=== PATIENT | female | born 1945 | race Caucasian/White ===

== ENCOUNTER → 2018-06-19 12:11 | Outpatient (CLI) | payer MEDICARE, OTHER, SELFPAY ==
--- NOTE | 2018-06-19 | DI.MG.S_ITS ---
BILATERAL DIGITAL SCREENING MAMMOGRAM 3D/2D WITH CAD: 06/19/2018 CLINICAL: Routine screening. Comparison is made to exams dated: 07/04/2016 mammogram, 06/23/2015 mammogram, and 06/08/2014 mammogram - [facility]. There are scattered fibroglandular elements in both breasts. Current study was also evaluated with a Computer Aided Detection (CAD) system. There are benign post operative findings in both breasts. No significant masses, calcifications, or other findings are seen in either breast. There has been no significant interval change. IMPRESSION: There is no mammographic evidence of malignancy. A 1 year screening mammogram is recommended. This exam was interpreted at Station ID: [id number]. NOTE: For mammograms, a report in lay terms will be sent to the patient. Approximately 15% of breast malignancies will not be visualized mammographically. In the management of a palpable breast mass, a negative mammogram must not discourage biopsy of a clinically suspicious lesion. Electronically Signed By: Belen zhou/haley:06/19/2018 13:30:15 letter sent: Normal Exam ACR BI-RADS Category 2: Benign Finding(s) 3342F
== END ==
PROVIDERS: Visit Provider Internal Medicine
DX: Z12.31 Encounter for screening mammogram for malignant neoplasm of breast (principal)
CPT/HCPCS: 77063; 77067

== ENCOUNTER → 2018-08-07 16:00 | Outpatient (CLI) | payer MEDICARE, OTHER, SELFPAY ==
[2018-08-07 17:03] LABS: C-Reactive Protein Quant < 0.5 mg/dL (<1.0); Rheumatoid Factor < 8.6 IU/mL (<12.0)
[2018-08-07 17:09] LABS: Erythrocyte Sedimentation Rate 7 MM/HR (0-20)
[2018-08-09 14:46] LABS: HLA B27 NEGATIVE (Negative)
[2018-08-09 19:45] LABS: ANA Screen, IFA Negative (Negative)
== END ==
PROVIDERS: PCP Family Medicine; Visit Provider Orthopaedic Surgery
DX: M79.641 Pain in right hand (principal); M79.642 Pain in left hand
CPT/HCPCS: 36415; 84550; 85651; 86038; 86140; 86430; 86812

== ENCOUNTER 2018-11-22 16:48 | Emergency (ER) | payer MEDICARE, OTHER, SELFPAY ==
[2018-11-22 16:49] VITALS: BP 133/84; PULSE 83; RESP 18; TEMP 37.8; O2SAT 96
--- NOTE | 2018-11-22 18:06 | ED.SKABFB ---
HPI - Skin/Abscess/Foreign Bdy General Chief complaint: Skin/Abscess/Foreign Body Stated complaint: R hand swollen poss insect bite Time Seen by Provider: 11/22/18 17:45 Source: patient Mode of arrival: ambulatory Limitations: no limitations History of Present Illness HPI narrative: Patient is a otherwise healthy 72-year-old female here for evaluation of an infection to her right hand. She states she noticed it yesterday morning. Woke up this morning she thought it was worse. It has improved since this morning because she put ice on it today. She denies any trauma. Denies any other symptoms. She states that earlier in the week she was working in the garden. But does not remember any specific injury. He has never had a abscess that has needed drained in the past. Related Data Previous Rx's Medication Instructions Recorded azithromycin 250 mg tablet See Rx Instructions PO .COMPLEX #6 09/10/18 tab benzonatate 100 mg capsule 100 mg PO BEDTIME #20 cap 09/10/18 ondansetron 4 mg disintegrating 4 mg PO Q6-8H PRN #30 tab 09/10/18 tablet doxycycline hyclate 100 mg PO BID 7 Days #14 tab 11/22/18 Allergies Allergy/AdvReac Type Severity Reaction Status Date / Time hydrocodone [HYDROCODONE] AdvReac Mild SEVERE Verified 09/10/18 08:34 VOMITING Review of Systems Constitutional Denies fatigue and Denies fever(s) Respiratory Denies cough Musculoskeletal Reports arthralgias (Right wrist), Reports joint swelling (Right wrist), Reports limited range of motion (Right wrist) and Denies tingling Integumentary/Breasts Comments: Redness on the back of the right wrist Neurologic Denies tingling Endocrine Denies fatigue Hematologic/Lymphatic Denies easy bleeding and Denies easy bruising FOR[facility]LY [facility], [facility]–1983 Medical History Healthy adult (Acute) Social History Smoking Status: Never smoker Social History Smoking Status: Never smoker Exam Initial Vital Signs Initial Vital Signs: Vital Signs Temperature 100.1 F H 11/22/18 16:49 Pulse Rate 83 11/22/18 16:49 Respiratory Rate 18 11/22/18 16:49 Blood Pressure 133/84 11/22/18 16:49 Pulse Oximetry 96 11/22/18 16:49 Const General: cooperative, comfortable, well developed, well groomed and No acute distress Orientation: alert, awake and oriented x3 HENMT Head: normal to inspection and normocephalic Resp Effort & Inspection: normal respiratory effort Auscultation: clear to auscultation bilaterally Cardio Rate: regular rate Rhythm: regular rhythm Pulses: radial pulses present on the right Skin Other: Patient with redness on the dorsum of the right hand that extends a very short distance proximal to the wrist joint. No redness on the palm of the hand. Redness does not extend distal to the MCP joints. Neuro Sensory Exam: no sensory deficits noted Extrem General: normal to inspection and capillary refill normal Course Orders Ordered: ED Orders 11/22/18 18:00 Complete Blood Count AUTO DIFF Stat Comprehensive Metabolic Panel Stat Lactate (Lactic Acid) Stat Procalcitonin Stat 11/22/18 18:25 Blood Culture Stat Discontinued Medications Acetaminophen (Tylenol) 650 mg PO NOW ONE Stop: 11/22/18 17:46 Last Admin: 11/22/18 18:31 Dose: 650 mg Clindamycin Phosphate (Cleocin) 900 mg in 50 mls @ 50 mls/hr IV NOW ONE Stop: 11/22/18 19:29 Last Infusion: 11/22/18 20:04 Dose: 0 mls/hr Admin: 11/22/18 18:34 Dose: 50 mls/hr Vital Signs - 8 hr 11/22/18 16:49 11/22/18 19:49 Temperature 100.1 F H Pulse Rate 83 85 Respiratory Rate 18 15 Blood Pressure 133/84 Blood Pressure [Right Arm] 128/63 Pulse Oximetry 96 95 MDM - Skin/Abscess/Foreign Bdy Lab Data Attestation: I reviewed the patient's lab results. Result diagrams: 11/22/18 18:00 11/22/18 18:00 Lab Results 11/22/18 11/22/18 11/22/18 Range/Units 18:00 18:00 18:00 WBC 10.7 (4.5-11.0) X10^3/uL RBC 4.69 (4.0-5.2) X10^6/uL Hgb 14.5 (12.0-16.0) g/dL Hct 42.6 (36-46) % MCV 90.8 (80-100) fL MCH 31.0 (26-34) PG MCHC 34.1 (30-36) % RDW 14.0 (11.6-14.8) % Plt Count 396 (150-400) X10^3/uL Neut % (Auto) 57.7 (50-75) % Lymph % (Auto) 27.3 (25-40) % Bowie % (Auto) 13.3 (3-14) % Eos % (Auto) 0.8 L (2-4) % Baso % (Auto) 0.9 (0-2) % Neut # (Auto) 6200 (1330-6594) /uL Lymph # (Auto) 2900 (6147-1879) /uL Bowie # (Auto) 1400 H (0-900) /uL Eos # (Auto) 100 (0-450) /uL Baso # (Auto) 100 (0-100) /uL Sodium 139 (137-145) mmol/L Potassium 3.8 (3.4-5.1) mmol/L Chloride 101 (98-107) mmol/L Carbon Dioxide 28 (22-32) mmol/L BUN 11 (7-17) mg/dL Creatinine 0.80 (0.52-1.04) mg/dL Estimated GFR > 60.0 (>60) mL/min BUN/Creatinine Ratio 13.8 (6-22) Glucose 109 (80-110) mg/dL Lactate (0.7-2.1) mmol/L Calcium 9.4 (8.4-10.2) mg/dL Total Bilirubin 0.7 (0.2-1.3) mg/dL AST 20 (14-36) IU/L ALT 30 (9-52) IU/L Alkaline Phosphatase 82 (38-126) U/L Total Protein 7.9 (6.3-8.2) g/dL Albumin 4.4 (3.5-5.0) g/dL Globulin 3.5 (1.7-4.1) g/dL Albumin/Globulin Ratio 1.3 (1.0-2.8) Procalcitonin < 0.05 (<0.5) ng/mL 11/22/18 Range/Units 18:00 WBC (4.5-11.0) X10^3/uL RBC (4.0-5.2) X10^6/uL Hgb (12.0-16.0) g/dL Hct (36-46) % MCV (80-100) fL MCH (26-34) PG MCHC (30-36) % RDW (11.6-14.8) % Plt Count (150-400) X10^3/uL Neut % (Auto) (50-75) % Lymph % (Auto) (25-40) % Bowie % (Auto) (3-14) % Eos % (Auto) (2-4) % Baso % (Auto) (0-2) % Neut # (Auto) (5552-2104) /uL Lymph # (Auto) (7458-4989) /uL Bowie # (Auto) (0-900) /uL Eos # (Auto) (0-450) /uL Baso # (Auto) (0-100) /uL Sodium (137-145) mmol/L Potassium (3.4-5.1) mmol/L Chloride (98-107) mmol/L Carbon Dioxide (22-32) mmol/L BUN (7-17) mg/dL Creatinine (0.52-1.04) mg/dL Estimated GFR (>60) mL/min BUN/Creatinine Ratio (6-22) Glucose (80-110) mg/dL Lactate 1.4 (0.7-2.1) mmol/L Calcium (8.4-10.2) mg/dL Total Bilirubin (0.2-1.3) mg/dL AST (14-36) IU/L ALT (9-52) IU/L Alkaline Phosphatase (38-126) U/L Total Protein (6.3-8.2) g/dL Albumin (3.5-5.0) g/dL Globulin (1.7-4.1) g/dL Albumin/Globulin Ratio (1.0-2.8) Procalcitonin (<0.5) ng/mL MDM Narrative Medical decision making narrative: Patient is nontoxic appearing. Redness is located to the dorsum of the right hand. She has a picture of it from earlier today and it does appear to be better than what it was earlier today. No abscess seen on exam. She has a small area on the dorsum of the hand where it looks like there was a potential break in the skin. Unsure if this was from when she was working in the garden earlier this week. She was working with [employer] however does not remember getting stuck with anything. Considered infection such as Sporotrichosis however I feel given the look of the infection today that treating with a course of doxycycline as a cellulitis is warranted. She was given IV antibiotics here in the ER. She was instructed to contact her primary doctor for follow-up. Was given a prescription for doxycycline. She was given return precautions. She expressed understanding and agreement with plan. Discharge Plan Departure Patient Disposition: Home Clinical Impression: Cellulitis Qualifiers: Site of cellulitis: extremity Site of cellulitis of extremity: upper extremity Laterality: right Qualified Code(s): L03.113 - Cellulitis of right upper limb Discharge Date/Time: 11/22/18 20:10 Interventions: ED Discharge Assessment Last Done: 11/22/18 20:10 Instructions: DI for Cellulitis -- Adult Activity Restrictions/Additional Instructions: Take the antibiotics as directed. Contact the [facility] to establish care with your new provider. You can contact them at [phone]. Return to the emergency department for any new or worsening symptoms Prescriptions: New doxycycline hyclate 100 mg tablet 100 mg PO BID 7 Days Qty: 14 RF: 0 No Action azithromycin 250 mg tablet See Rx Instructions PO .COMPLEX Qty: 6 RF: 0 ondansetron 4 mg tablet,disintegrating 4 mg PO Q6-8H PRN (Reason: nausea and vomiting) Qty: 30 RF: 0 benzonatate 100 mg capsule 100 mg PO BEDTIME Qty: 20 RF: 0 Referrals: Toan Hernandez MD [Primary Care Provider] -
[2018-11-22 18:12] LABS: Add Manual Diff / Slide Review NO; Basophils Absolute Auto 100 /uL (0-100); Basophils Percent Auto 0.9 % (0-2); Eosinophils Absolute Auto 100 /uL (0-450); Eosinophils Percent Auto 0.8 % (2-4); Hematocrit 42.6 % (36-46); Hemoglobin 14.5 g/dL (12.0-16.0); Lymphocytes Absolute Auto 2900 /uL (1100-4500); Lymphocytes Percent Auto 27.3 % (25-40); Mean Corpuscular HGB Conc 34.1 % (30-36); Mean Corpuscular Volume 90.8 fL (80-100); Monocytes Absolute Auto 1400 /uL (0-900); Monocytes Percent Auto 13.3 % (3-14); Neutrophils Absolute Auto 6200 /uL (1500-7000); Neutrophils Percent Auto 57.7 % (50-75); Platelet Count 396 X10^3/uL (150-400); Red Blood Cell Count 4.69 X10^6/uL (4.0-5.2); White Blood Cell Count 10.7 X10^3/uL (4.5-11.0)
[2018-11-22 18:23] LABS: Lactate (Lactic Acid) 1.4 mmol/L (0.7-2.1)
[2018-11-22 18:24] LABS: Alanine Aminotransferase 30 IU/L (9-52); Albumin 4.4 g/dL (3.5-5.0); Albumin Globulin Ratio 1.3 (1.0-2.8); Alkaline Phosphatase 82 U/L (38-126); Aspartate Aminotransferase 20 IU/L (14-36); BUN Creatinine Ratio 13.8 (6-22); Bilirubin Total 0.7 mg/dL (0.2-1.3); Blood Urea Nitrogen 11 mg/dL (7-17); Calcium 9.4 mg/dL (8.4-10.2); Carbon Dioxide 28 mmol/L (22-32); Chloride 101 mmol/L (98-107); Estimated Glomerular Filt Rate > 60.0 mL/min (>60); Globulin 3.5 g/dL (1.7-4.1); Glucose 109 mg/dL (80-110); HEMOLYSIS < 15 (0-50); Potassium 3.8 mmol/L (3.4-5.1); Sodium 139 mmol/L (137-145); Total Protein 7.9 g/dL (6.3-8.2)
[2018-11-22] MEDS: ACETAMINOPHEN 325 MG TABLET 650 MG PO (18:31)
[2018-11-22] MEDS: CLINDAMYCIN 900 MG/50 ML PIGGYBACK 50 MG IV (18:34)
[2018-11-22 18:45] LABS: Procalcitonin < 0.05 ng/mL (<0.5)
[2018-11-22 19:49] VITALS: BP 128/63; PULSE 85; RESP 15; O2SAT 95
== END 2018-11-22 20:10 | disposition home or self-care (01) ==
PROVIDERS: Emergency Medicine; Emergency Provider Emergency Medicine; PCP Student in an Organized Health Care Education/Training Program
DX: L03.113 Cellulitis of right upper limb (principal)
CPT/HCPCS: 36415; 36591; 80053; 83605; 84145; 85025; 87040; 96365; 96366; 99283; 99284

== ENCOUNTER → 2019-09-06 11:49 | Outpatient (CLI) | payer MEDICARE, OTHER, SELFPAY ==
[2019-09-08 14:17] LABS: Immunoglobulin A 513 mg/dL (70-320)
== END ==
PROVIDERS: Family Provider Internal Medicine; PCP Internal Medicine; Visit Provider Internal Medicine
DX: R19.7 Diarrhea, unspecified (principal)
CPT/HCPCS: 36415; 82784; 83516

== ENCOUNTER → 2020-03-24 11:00 | Outpatient (CLI) | payer MEDICARE, OTHER, SELFPAY ==
--- NOTE | 2020-03-24 | DI.MG.S_ITS ---
BILATERAL DIGITAL SCREENING MAMMOGRAM 3D/2D WITH CAD: 03/24/2020 CLINICAL: Routine screening. Comparison is made to exams dated: 06/19/2018 mammogram, 07/04/2016 mammogram, and 06/23/2015 mammogram - [facility]. There are scattered fibroglandular elements in both breasts. Current study was also evaluated with a Computer Aided Detection (CAD) system. There are benign post operative findings in both breasts. No significant masses, calcifications, or other findings are seen in either breast. There has been no significant interval change. IMPRESSION: There is no mammographic evidence of malignancy. A 1 year screening mammogram is recommended. This exam was interpreted at Station ID: [id number]. NOTE: For mammograms, a report in lay terms will be sent to the patient. Approximately 15% of breast malignancies will not be visualized mammographically. In the management of a palpable breast mass, a negative mammogram must not discourage biopsy of a clinically suspicious lesion. Electronically Signed By: Belen zhou/haley:03/24/2020 11:24:31 letter sent: Normal Exam ACR BI-RADS Category 2: Benign Finding(s) 3342F
== END ==
PROVIDERS: Family Provider Internal Medicine; PCP Internal Medicine; Referring Provider Internal Medicine; Visit Provider Internal Medicine
DX: Z12.31 Encounter for screening mammogram for malignant neoplasm of breast (principal)
CPT/HCPCS: 77063; 77067

== ENCOUNTER → 2020-09-22 09:21 | Outpatient (CLI) | payer MEDICARE, OTHER, SELFPAY ==
[2020-09-22 10:49] LABS: Alanine Aminotransferase 19 IU/L (<35); Albumin 4.2 g/dL (3.5-5.0); Albumin Globulin Ratio 1.3 (1.0-2.8); Alkaline Phosphatase 73 U/L (38-126); Aspartate Aminotransferase 25 IU/L (14-36); Bilirubin Total 0.6 mg/dL (0.2-1.3); Blood Urea Nitrogen 13 mg/dL (7-17); Carbon Dioxide 30 mmol/L (22-32); Chloride 104 mmol/L (98-107); Cholesterol 255 mg/dL (140-199); Estimated Glomerular Filt Rate > 60.0 mL/min (>60); Globulin 3.3 g/dL (1.7-4.1); Glucose 91 mg/dL (80-110); HDL Cholesterol 65 mg/dL (40-60); HEMOLYSIS < 15 (0-50); LDL Cholesterol Calculated 160 mg/dL (<100); Potassium 3.8 mmol/L (3.4-5.1); Sodium 139 mmol/L (137-145); Total Protein 7.5 g/dL (6.3-8.2); Triglycerides 148 mg/dL (35-150)
[2020-09-22 11:34] LABS: TSH w/ Reflex to FT4 1.58 uIU/mL (0.47-4.68)
== END ==
PROVIDERS: Family Provider Internal Medicine; PCP Family Medicine; Referring Provider Family Medicine; Visit Provider Family Medicine
DX: E78.2 Mixed hyperlipidemia (principal); I49.3 Ventricular premature depolarization; J45.30 Mild persistent asthma, uncomplicated; M19.042 Primary osteoarthritis, left hand
CPT/HCPCS: 36415; 80053; 80061; 84443

== ENCOUNTER → 2020-09-29 11:18 | Outpatient (CLI) | payer MEDICARE, SELFPAY ==
[2020-09-29 13:03] LABS: Add Manual Diff / Slide Review NO; Basophils Absolute Auto 100 /uL (0-100); Eosinophils Absolute Auto 100 /uL (0-450); Eosinophils Percent Auto 1.7 % (2-4); Hematocrit 46.7 % (36-46); Hemoglobin 15.3 g/dL (12.0-16.0); Lymphocytes Absolute Auto 1800 /uL (1100-4500); Lymphocytes Percent Auto 30.6 % (25-40); Mean Corpuscular HGB Conc 32.8 % (30-36); Mean Corpuscular Hemoglobin 30.1 PG (26-34); Monocytes Absolute Auto 600 /uL (0-900); Monocytes Percent Auto 10.4 % (3-14); Neutrophils Absolute Auto 3400 /uL (1500-7000); Neutrophils Percent Auto 56.3 % (50-75); Platelet Count 378 X10^3/uL (150-400); Red Blood Cell Count 5.07 X10^6/uL (4.0-5.2); Red Cell Distribution Width 14.2 % (11.6-14.8)
[2020-09-29 13:30] LABS: High Sensitivity CRP - Cardiac 2.8 mg/L (1.0-3.0)
== END ==
PROVIDERS: Family Provider Internal Medicine; PCP Family Medicine; Referring Provider Family Medicine; Visit Provider Family Medicine
DX: D68.52 Prothrombin gene mutation (principal); E78.2 Mixed hyperlipidemia; I49.3 Ventricular premature depolarization
CPT/HCPCS: 36415; 85025; 86140

== ENCOUNTER → 2020-11-10 13:30 | Outpatient (CLI) | payer MEDICARE, OTHER, SELFPAY ==
--- NOTE | 2020-11-10 13:32 | DI.MRI.S_ITS ---
PROCEDURE: MRFOOT LT WO CON INDICATIONS: Metatarsalgia, left foot TECHNIQUE: Noncontrast sagittal T1 spin echo and T2 fast spin echo with fat saturation, long-axis T1 spin echo and T2 fast spin echo with fat saturation, short-axis T1 spin echo and T2 fast spin echo with fat saturation through the forefoot. COMPARISON: [facility], CR, XR FOOT 3 VIEWS WEIGHT BEARING LEFT, 08/01/2020, 13:14. FINDINGS: Image quality: Suboptimal secondary to failure of fat suppression in the region of the distal forefoot. Bones and joints: No bone marrow contusions or metatarsal stress fractures. The sesamoid bones appear in expected positions, without internal edema. There is diffuse lesser MTP joint degeneration, although not well evaluated due to failure of fat suppression artifact. Moderate 1st MTP joint degeneration. Soft tissues: The visualized plantar foot muscles demonstrate normal signal and bulk. Visualized flexor and extensor tendons appear intact, without tenosynovitis. The distal insertions of the peroneus brevis and longus tendons appear intact. The principal Lisfranc ligament appears intact. No soft tissue ganglion cysts or bursal fluid collections. Sagittal images demonstrate no evidence for plantar plate tears. IMPRESSION: Diffuse MTP joint degeneration Dictated by: Dagoberto Moreno M.D. on 11/10/2020 at 14:59 Approved by: Dagoberto Moreno M.D. on 11/10/2020 at 15:17
== END ==
PROVIDERS: Family Provider Internal Medicine; PCP Family Medicine; Referring Provider Orthopaedic Surgery Foot and Ankle Surgery; Visit Provider Orthopaedic Surgery Foot and Ankle Surgery
DX: M77.42 Metatarsalgia, left foot (principal); M19.072 Primary osteoarthritis, left ankle and foot
CPT/HCPCS: 73718

== ENCOUNTER → 2021-05-04 17:57 | Outpatient (CLI) | payer MEDICARE, OTHER, SELFPAY ==
--- NOTE | 2021-05-04 | DI.MG.S_ITS ---
BILATERAL DIGITAL SCREENING MAMMOGRAM 3D/2D WITH CAD: 05/04/2021 CLINICAL: Routine screening. Comparison is made to exams dated: 03/24/2020 mammogram, 06/19/2018 mammogram, and 07/04/2016 mammogram - [facility]. There are scattered fibroglandular elements in both breasts. Current study was also evaluated with a Computer Aided Detection (CAD) system. There are benign post operative findings in both breasts. No significant masses, calcifications, or other findings are seen in either breast. There has been no significant interval change. IMPRESSION: BENIGN There is no mammographic evidence of malignancy. A 1 year screening mammogram is recommended. This exam was interpreted at Station ID: [id number]. NOTE: For mammograms, a report in lay terms will be sent to the patient. Approximately 15% of breast malignancies will not be visualized mammographically. In the management of a palpable breast mass, a negative mammogram must not discourage biopsy of a clinically suspicious lesion. Electronically Signed By: Ga lomeli/haley:05/08/2021 08:04:33 letter sent: Normal Exam ACR BI-RADS Category 2: Benign Finding(s) [id number]
== END ==
PROVIDERS: PCP Family Medicine; Referring Provider Family Medicine; Visit Provider Family Medicine
DX: Z12.31 Encounter for screening mammogram for malignant neoplasm of breast (principal)
CPT/HCPCS: 77063; 77067

== ENCOUNTER → 2021-07-05 12:09 | Outpatient (CLI) | payer MEDICARE, OTHER, SELFPAY ==
[2021-07-05 13:40] LABS: Cholesterol 131 mg/dL (140-199); HDL Cholesterol 52 mg/dL (40-60); LDL Cholesterol Calculated 65 mg/dL (<100); Triglycerides 72 mg/dL (35-150)
== END ==
PROVIDERS: PCP Family Medicine; Referring Provider Family Medicine; Visit Provider Family Medicine
DX: E78.2 Mixed hyperlipidemia (principal)
CPT/HCPCS: 36415; 80061

== ENCOUNTER → 2021-09-18 15:26 | Outpatient (CLI) | payer MEDICARE, OTHER, SELFPAY ==
[2021-09-18 16:00] LABS: COVID19 -Nasal RAPID Negative (Negative)
== END ==
PROVIDERS: PCP Family Medicine; Referring Provider Family Medicine Sleep Medicine; Visit Provider Family Medicine Sleep Medicine
DX: Z20.822 Contact with and (suspected) exposure to COVID-19 (principal)
CPT/HCPCS: 87635; C9803

== ENCOUNTER → 2021-09-19 08:44 | Outpatient (CLI) | payer MEDICARE, OTHER, SELFPAY ==
--- NOTE | 2021-09-20 14:35 | P.PCN_ITS ---
Cardiac Stress Test Report Referral & Results Date Patient Seen: 09/20/21 Requesting provider: Juan J Cortez Indication: Shortness of breath Rest ECG: Unremarkable with occasional simple unifocal PVCs Procedure Note: Today following both written and verbal informed consent the patient was exercised according to a standard Frederic protocol patient went for a total of 7 minutes 3 seconds achieving a maximum heart rate of 164 maximum systolic blood pressure of 168. This is approximately 10.1 METS. Exercise was terminated at this point because of targets were met. Patient was also given Cardiolite through a previously started Hep-Lock IV by the diagnostic imaging staff approximately 1 minute prior to the cessation of exercise. There are no ST-T segment changes. Patient with somewhat tachycardic response to exercise but normal blood pressure response Function aerobic impairment rates-25% on the active scale and patient certainly could have continued longer on the treadmill of his halted early by myself because targets were clearly met and her EMELIA was far better than normal She did have occasional PVCs including ventricular couplets that were mono morphic in character. She had rare PACs. Oxygen saturation was normal throughout Impression: No evidence of ischemia. Ventricular dysrhythmia as above. Excellent exercise capacity Please see perfusion imaging report as well Please note: Actual ECG tracings can be found in the PACS system.
--- NOTE | 2021-09-20 20:09 | DI.NM.S_ITS ---
DATE OF SERVICE: 09/19/2021 PROCEDURE: Exercise perfusion study. INDICATION: Exertional shortness of breath, hyperlipidemia, PVCs. RADIOPHARMACEUTICAL: 25.6 millicurie technetium-99m Myoview was injected at stress and 24.6 millicurie technetium-99m my Myoview was injected at rest. CARDIAC STRESS: The patient walked on treadmill for 7 minutes and achieved 112 percent target heart rate with maximum heart rate 164 beats per minute. During first stage, heart rate was 133, suggestive of enhanced chronotropic response. Baseline blood pressure 122/70. Peak blood pressure 160/68 mmHg. The patient has baseline PVCs. During stress, there were no convincing ischemic changes. However, had frequent PVCs and occasional ventricular couplets without any ventricular tachycardia. Some PACs were seen, as well. No significant symptoms were mentioned. The patient achieved 10.1 METs of workload and EMELIA -25 percent. RAW DATA: There is increased subdiaphragmatic activity, as well as hot spot near the apex. GATED STUDY: Resting LV ejection fraction 69 percent and stress LV ejection fraction is 79 percent without any obvious wall motion abnormalities. Resting end-diastolic volume 72 mL. TID ratio 0.86, which is within normal limits. Lung/heart ratio 0.52, which is abnormal, suggestive of elevated left ventricular filling pressure. MYOCARDIAL PERFUSION SCAN: Stress supine, resting supine and stress prone images were compared to each other. Stress supine and resting supine images revealed small size, mildly decreased perfusion of apex, which got completely resolved during stress prone images, suggestive of tissue attenuation artifact. The stress prone images revealed normal myocardial perfusion. CONCLUSION: This is a normal myocardial perfusion study with evidence of tissue attenuation artifact, which got resolved during stress prone images. Good exercise tolerance. EMELIA -25 percent. Enhanced chronotropic response. Normal blood pressure response. Baseline, some premature ventricular contractions, which got worse during exercise with intermittent ventricular couplets without an any ventricular tachycardia. There is abnormal lung/heart ratio, suggestive of elevated left ventricular filling pressure. Consider 2D echo to rule out diastolic dysfunction or valvular pathology. Alison Majano - CRISTHIAN/michael/carmen doc#: [id number]/job#: [id number] dd: 09/20/2021 17:48:00 dt: 09/20/2021 19:44:00 DICTATING MD/COPIES TO: Dianna Block MD COPIES MNE: DOUGLAS;
== END ==
PROVIDERS: PCP Family Medicine; Referring Provider Family Medicine; Visit Provider Family Medicine
DX: J45.30 Mild persistent asthma, uncomplicated (principal); E78.2 Mixed hyperlipidemia; R06.02 Shortness of breath; I49.3 Ventricular premature depolarization; I47.0 Re-entry ventricular arrhythmia
CPT/HCPCS: 78452; 93016; 93017; 93018; A9502

== ENCOUNTER → 2021-10-18 10:16 | Outpatient (CLI) | payer MEDICARE, OTHER, SELFPAY ==
--- NOTE | 2021-10-18 10:17 | DI.ECHO.S_ITS ---
[place]---------+ [facility] +---------+ : : [address] [address] : : : : [id number] : : : : Phone: [phone]---------+ Echocardiogram Report + + :Name: RIA NOLASCO Study Date: 10/18/2021 Height: 60.5 in: :[facility] ReadingLocation: Weight: 144 lb : : Gender: Female BSA: 1.6 m2 : :: 1945 Age: 75 yrs BP: 130/80 mmHg: :Reason For Study: Hyperlipidemia, SOB, Family hx of CAD : :Ordering Physician: : :MARIMAR Performed By: Antonio Jackson : :Referring: CADEN DESAI : + + Interpretation Summary The ejection fraction is estimated to be 60-65%. Diastolic function could not be accurately assessed due to contradictory data. The right ventricle is normal in size and function. No significant valvular abnormalities. Pulmonary artery pressures cannot be estimated because of the lack of a measurable TR jet velocity. Procedure: A two-dimensional transthoracic echocardiogram with color flow and Doppler was performed. The study quality was technically adequate. The subcostal views were difficult to obtain and are suboptimal in quality. Aquisition on apical window technically difficult. Comparison is made with the echocardiogram of 11/08/2016. A contrast injection of Definity was performed to improve assessment of LV function. The patient was in normal sinus rhythm during the exam. Left Ventricle: The left ventricle is normal in size and wall thickness. The ejection fraction is estimated to be 60-65%. Diastolic function could not be accurately assessed due to contradictory data. Right Ventricle: The right ventricle is normal in size and function. Atria: Both atria are normal in size. Mitral Valve: The mitral valve leaflets appear mildly thickened, but open well. There is mild mitral annular calcification. There is trace mitral regurgitation. Aortic Valve: The aortic valve is trileaflet. The aortic valve opens well. There is no aortic valve stenosis. There is trace aortic regurgitation. Tricuspid Valve: The tricuspid valve is normal. There is a trace or physiologic amount of tricuspid regurgitation. Pulmonary artery pressures cannot be estimated because of the lack of a measurable TR jet velocity. Pulmonic Valve: The pulmonic valve leaflets are thin and pliable; valve motion is normal. There is a trace or physiologic amount of pulmonic regurgitation. Great Vessels: The aortic root is normal size. The ascending aorta is normal in size. The aortic arch is normal in size. The IVC is of normal diameter and collapses greater than 50% with a sniff. This suggests a low right atrial pressure of 3 mm Hg. Pericardium/ Pleura There is no pericardial effusion. There is an anterior echo-free space consistent with a fat pad. There is no pleural effusion. MMode/2D Measurements & Calculations LVIDd: 4.7 cm LVOT diam: 2.0 cm LVIDs: 3.4 cm Ao root diam: 2.8 cm FS: 27.7 % asc Aorta Diam: 2.9 cm IVSd: 0.90 cm Ao Arch Diam (Prox Trans): 2.7 cm LVPWd: 0.80 cm LV levin. diameter/BSA (cm/m^2): 2.9 LV sys. diameter/BSA (cm/m^2): 2.1 LA A2 area: 15.6 cm2 RA long axis: 4.5 cm LA A4 area: 15.3 cm2 LA length (vol): 4.4 cm LA vol: 46.0 ml LA vol index: 28.1 ml/m2 LVLs ap4: 5.4 cm LVLd ap2: 6.5 cm LVLs ap2: 5.3 cm TAPSE_phl: 1.9 cm Doppler Measurements & Calculations Ao V2 max: 146.0 cm/sec LVOT Max Ez: 81.6 cm/sec Ao V2 mean: 99.1 cm/sec LV V1 max P.7 mmHg Ao max P.0 mmHg LV V1 VTI: 15.8 cm Ao mean P.0 mmHg REGINALDO(I,D): 1.8 cm2 Ao V2 VTI: 27.4 cm REGINALDO(V,D): 1.8 cm2 sev ratio: 0.58 REGINALDO indexed to BSA (cm^2/m^2): 1.1 MV E max ez: 82.3 cm/sec TR max ez: 158.8 cm/sec MV A max ez: 116.0 cm/sec TR max P.1 mmHg MV E/A: 0.71 Med Peak E' Ez: 5.3 cm/sec E/E' med: 15.5 Lat Peak E' Ez: 4.2 cm/sec E/E' lat: 19.8 E/e' average: 17.6 MV dec time: 0.21 sec SV(LVOT): 49.6 ml AV VR_phl: 0.56 REGINALDO(VTI)/BSA_phl: 1.1 MV P1/2t-pr_phl: 61.0 msec Reading Physician:12:31 PM
== END ==
PROVIDERS: PCP Family Medicine; Referring Provider Family Medicine; Visit Provider Family Medicine
DX: R06.02 Shortness of breath (principal); E78.2 Mixed hyperlipidemia; Z82.49 Family history of ischemic heart disease and other diseases of the circulatory system
CPT/HCPCS: 93306; Q9957

== ENCOUNTER → 2021-10-23 08:38 | Outpatient (CLI) | payer MEDICARE, OTHER, SELFPAY ==
[2021-10-23 09:35] LABS: Cholesterol 174 mg/dL (140-199); HDL Cholesterol 67 mg/dL (40-60); LDL Cholesterol Calculated 85 mg/dL (<100); Triglycerides 111 mg/dL (35-150)
[2021-10-26 10:14] LABS: Estrogen 149 pg/mL (.)
[2021-11-02 14:58] LABS: % Free Progesterone 2.3 % (.); Progesterone, Serum 44 ng/dL (.)
== END ==
PROVIDERS: PCP Family Medicine; Referring Provider Family Medicine; Visit Provider Family Medicine
DX: E78.2 Mixed hyperlipidemia (principal); N95.9 Unspecified menopausal and perimenopausal disorder; J45.30 Mild persistent asthma, uncomplicated
CPT/HCPCS: 36415; 80061; 82672; 83498; 84144; 84999

== ENCOUNTER → 2022-01-21 14:51 | Outpatient (CLI) | payer MEDICARE, OTHER, SELFPAY ==
--- NOTE | 2022-01-21 14:53 | DI.RAD.S_ITS ---
PROCEDURE: XR HIP W PEL IF DONE [place] MIN 4V INDICATIONS: Hip pain TECHNIQUE: AP pelvis with lateral view(s) of the bilateral hip(s). COMPARISON: None. FINDINGS: Bones: No fractures or dislocations. Pelvic ring appears intact. No suspicious bony lesions. Joint space narrowing and periarticular osteophyte formation at the bilateral hip joints. Soft tissues: The visualized bowel gas pattern is normal. No suspicious soft tissue calcifications. IMPRESSION: Bilateral hip osteoarthritis. No acute fracture. No osseous lesion. If symptoms and/or clinical suspicion for pathology persist, further assessment with repeat, or advanced imaging (e.g., CT, MRI, or bone scan) may be helpful for further assessment. Dictated by: Jermain Collazo M.D. on 01/21/2022 at 16:31 Approved by: Jermain Collazo M.D. on 01/21/2022 at 16:55
== END ==
PROVIDERS: PCP Family Medicine; Referring Provider Family Medicine; Visit Provider Internal Medicine
DX: M51.36 Other intervertebral disc degeneration, lumbar region (principal); M16.0 Bilateral primary osteoarthritis of hip
CPT/HCPCS: 73522

== ENCOUNTER → 2022-02-20 17:03 | Outpatient (CLI) | payer MEDICARE, OTHER, SELFPAY ==
[2022-02-20 18:56] LABS: Vitamin D 25 Hydroxy (D3) 50.6 ng/mL (30.0-100.0)
== END ==
PROVIDERS: PCP Family Medicine; Referring Provider Family Medicine; Visit Provider Family Medicine
DX: M16.10 Unilateral primary osteoarthritis, unspecified hip (principal); N95.9 Unspecified menopausal and perimenopausal disorder
CPT/HCPCS: 36415; 82306

== ENCOUNTER → 2022-02-25 13:45 | Outpatient (CLI) | payer MEDICARE, OTHER, SELFPAY ==
[2022-02-25 15:30] LABS: Alanine Aminotransferase 19 IU/L (<35); Albumin 4.3 g/dL (3.5-5.0); Albumin Globulin Ratio 1.4 (1.0-2.8); Alkaline Phosphatase 70 U/L (38-126); Aspartate Aminotransferase 26 IU/L (14-36); BUN Creatinine Ratio 15.7 (6-22); Bilirubin Total 0.9 mg/dL (0.2-1.3); Blood Urea Nitrogen 13 mg/dL (7-17); Calcium 9.1 mg/dL (8.4-10.2); Carbon Dioxide 31 mmol/L (22-32); Chloride 104 mmol/L (98-107); Estimated Glomerular Filt Rate > 60 mL/min (>60); Globulin 3.1 g/dL (1.7-4.1); Glucose 88 mg/dL (80-110); HEMOLYSIS < 15 (0-50); Potassium 3.7 mmol/L (3.4-5.1); Sodium 141 mmol/L (137-145); Total Protein 7.4 g/dL (6.3-8.2)
== END ==
PROVIDERS: PCP Family Medicine; Referring Provider Family Medicine; Visit Provider Family Medicine
DX: E78.2 Mixed hyperlipidemia (principal); M16.10 Unilateral primary osteoarthritis, unspecified hip; M51.36 Other intervertebral disc degeneration, lumbar region
CPT/HCPCS: 36415; 80053

== ENCOUNTER → 2022-05-24 12:01 | Outpatient (CLI) | payer MEDICARE, OTHER, SELFPAY ==
[2022-05-24 13:59] LABS: Cholesterol 286 mg/dL (140-199); HDL Cholesterol 71 mg/dL (40-60); LDL Cholesterol Calculated 193 mg/dL (<100); Triglycerides 108 mg/dL (35-150)
== END ==
PROVIDERS: PCP Family Medicine; Referring Provider Family Medicine; Visit Provider Family Medicine
DX: E78.2 Mixed hyperlipidemia (principal)
CPT/HCPCS: 36415; 80061

== ENCOUNTER → 2022-05-29 09:30 | Outpatient (CLI) | payer MEDICARE, OTHER, SELFPAY ==
--- NOTE | 2022-05-29 | DI.MG.S_ITS ---
BILATERAL DIGITAL SCREENING MAMMOGRAM 3D/2D WITH CAD: 05/29/2022 CLINICAL: Routine screening. Comparison is made to exams dated: 05/04/2021 mammogram, 03/24/2020 mammogram, 06/19/2018 mammogram, 07/04/2016 mammogram, and 06/23/2015 mammogram - [facility]. There are scattered areas of fibroglandular density in both breasts (category b / 25%-50% glandular tissue). Current study was also evaluated with a Computer Aided Detection (CAD) system. There are benign post operative findings in both breasts. No significant masses, calcifications, or other findings are seen in either breast. There has been no significant interval change. IMPRESSION: BENIGN There is no mammographic evidence of malignancy. A 1 year screening mammogram is recommended. Based on the Tyrer Cuzick model (a risk assessment model) the patient's lifetime risk is 2.7% and her 10 year risk is 2.7%. According to the ACR, ACS, and NCCN guidelines, an annual breast MRI exam along with mammogram is recommended if the patient's lifetime risk is 20% or greater. This exam was interpreted at Station ID: [id number]. NOTE: For mammograms, a report in lay terms will be sent to the patient. Approximately 15% of breast malignancies will not be visualized mammographically. In the management of a palpable breast mass, a negative mammogram must not discourage biopsy of a clinically suspicious lesion. Electronically Signed By: Eren armas/haley:05/29/2022 15:16:57 letter sent: Normal Exam ACR BI-RADS Category 2: Benign Finding(s) 3342F
== END ==
PROVIDERS: PCP Family Medicine; Referring Provider Family Medicine; Visit Provider Family Medicine
DX: Z12.31 Encounter for screening mammogram for malignant neoplasm of breast; M85.852 Other specified disorders of bone density and structure, left thigh; Z78.0 Asymptomatic menopausal state; M85.851 Other specified disorders of bone density and structure, right thigh; Z13.820 Encounter for screening for osteoporosis; M16.10 Unilateral primary osteoarthritis, unspecified hip; M51.36 Other intervertebral disc degeneration, lumbar region; Z90.710 Acquired absence of both cervix and uterus; Z79.890 Hormone replacement therapy
CPT/HCPCS: 77063; 77067; 77080

== ENCOUNTER → 2022-07-15 15:24 | Outpatient (CLI) | payer MEDICARE, OTHER, SELFPAY ==
--- NOTE | 2022-07-15 15:28 | DI.RAD.S_ITS ---
PROCEDURE: XR LUMBAR SPINE MIN 4V INDICATIONS: BACK PAIN TECHNIQUE: 5 views of the lumbar spine acquired, including flexion and extension views. COMPARISON: RG, XR L-SPINE 4-6V, 08/15/2004, 8:40. MR, L-SPINE WITHOUT CONTRAST, 06/05/2007, 18:21. FINDINGS: Bones: 5 [id number] vertebrae are present. There is normal bony alignment. No vertebral body compression fractures. No suspicious bony lesions. Degenerative disc disease, severe at L4-L5, moderate at L3-L4, and mild at multiple other levels. Severe facet arthropathy at L4-L5 and L5-S1. Soft tissues: Overlying bowel gas pattern is normal. No suspicious soft tissue calcifications. Oblique views: No pars defects. IMPRESSION: 1. Severe degenerative disc disease and facet arthropathy in lumbar spine. Dictated by: William Hannah M.D. on 07/15/2022 at 16:38 Approved by: William Hannah M.D. on 07/15/2022 at 17:17
== END ==
PROVIDERS: PCP Family Medicine; Referring Provider Anesthesiology; Visit Provider Anesthesiology
DX: M51.36 Other intervertebral disc degeneration, lumbar region (principal); M51.37 Other intervertebral disc degeneration, lumbosacral region; M47.816 Spondylosis without myelopathy or radiculopathy, lumbar region; M47.817 Spondylosis without myelopathy or radiculopathy, lumbosacral region; M54.9 Dorsalgia, unspecified
CPT/HCPCS: 72110

== ENCOUNTER 2022-07-23 12:41 | Outpatient (CLI) | payer MEDICARE, OTHER, SELFPAY ==
[2022-07-23] VITALS (8 sets, daily range): BP systolic 129–154; BP diastolic 62–82; PULSE 73–87; RESP 15–23; TEMP 36.4; O2SAT 96–99
--- NOTE | 2022-07-23 12:44 | DI.RAD.S_ITS ---
PROCEDURE: PAIN L/S TRANSFORAMINAL INJECT INDICATIONS: Low back and right leg pain COMPARISON: [facility], CR, XR LUMBAR SPINE MIN 4V, 07/15/2022, 15:44. FINDINGS: Fluoroscopic spot filming was performed to verify placement of a spinal needle at the L5-S1 level, as labeled on the films. Appropriate location of the needle tip was confirmed by injection of iodinated contrast. IMPRESSION: No significant intraprocedural abnormality. Dictated by: Bao Ortega M.D. on 07/23/2022 at 15:19 Approved by: Bao Ortega M.D. on 07/23/2022 at 15:19
[2022-07-23] MEDS: MIDAZOLAM 2 MG/2 ML VIAL 1 MG IV (13:08)
[2022-07-23] MEDS: DEXAMETHASONE 10 MG/ML VIAL 20 MG INJ (13:13)
[2022-07-23] MEDS: IOPAMIDOL 15 ML VIAL 3 ML INJ (13:13)
[2022-07-23] MEDS: BUPIVACAINE 0.5% MDV 2 ML SUBCUT (13:14)
--- NOTE | 2022-07-23 13:24 | P.PCN_ITS ---
Date/Time/Diagnoses Date of procedure: 07/23/22 Time of procedure: 13:24 Pre-procedure diagnosis: Lumbar radiculopathy Post-procedure diagnosis: same Procedure Notes Procedure: Right L5-S1 Transforaminal Epidural Steroid Injection Indications: Katy is referred by Dr. Cortez for treatment of lumbar radiculopathy with right leg pain. Physician: Derek Bagley Total Fluoroscopy time (seconds): 18 Total sedation minutes: 11 Procedure in detail & Post-procedure care: Right L5-S1 Transforaminal Epidural Steroid Injection Chief Complaint: right leg pain Interval changes in history/medications/system review: Unchanged since last visit. Allergies: hydrocodone Anticoagulants: none Focused Examination: Ax3 Mood and affect are normal Vital Signs: VSS Consent: Following review of allergies and potential side effects/complications, including, but not necessarily limited to, infection, allergic reaction, local tissue breakdown, stroke, temporary or permanent nerve injury, paralysis, and possible , the patient indicated that the patient understood and agreed to proceed.? An informed consent document was signed by the patient, witnessed by a nurse, and placed in the patient's chart.? Additionally, other treatment options including medications, modalities, and physical therapy were reviewed with the patient. All questions were answered. Site was then marked. Position: Prone Anesthesia: Midazolam 1 mg, Local Monitoring: NIBP, Pulse oximetry, 3 lead EKG Needle used: 22G 5 inch spinal needle Contrast: Isovue 300 2 mL Injectate: 15 mg Dexamethasone mixed with Bupivacaine 0.5% 1.5 mL Technique: The skin was prepped with chloraprep and draped in a sterile fashion. Time out was performed as per protocol. Oxygen applied via NC. Skin and subcutaneous structures of the needle entry site were infiltrated with 5mL of lidocaine 1% using 25 G needle. Under fluoroscopic guidance, using an ipsilateral oblique view,?a 22 G, 5 inch needle was advanced to the base of the right L5?pedicle.? The needle was advanced to the superio-posterior aspect of the neural foramen under lateral view.? Oblique and AP views were rechecked. No paresthesias noted by the patient during needle placement. In AP view and utilizing real-time digital subtraction fluoroscopy, ml contrast was slowly injected. Epidural spread was observed without evidence for intravascular nor intrathecal uptake. On AP view, contrast spread was seen craniocaudally.? The above injectate was then administered and the needle was subsequently withdrawn. EBL: less than 1 ml Complications: None Post Procedure: Patient was taken to the recovery and monitored. The patient was provided a Pain Log to continue to record the patient's response to the target- specific procedure prior to the patient's follow-up visit with the referring physician. Patient was stable upon discharge. Detailed post procedure instructions were provided. Patient was asked to call in the event of worsening pain, fever, weakness, numbness or bladder or bowel incontinence.
== END 2022-07-23 13:47 | disposition home or self-care (01) ==
LOC: RAD 12:42
PROVIDERS: PCP Family Medicine; Referring Provider Anesthesiology; Visit Provider Anesthesiology
DX: M54.17 Radiculopathy, lumbosacral region
CPT/HCPCS: 64483; 99152; J1100; J2250

== ENCOUNTER → 2022-07-24 08:45 | Outpatient (CLI) | payer MEDICARE, OTHER, SELFPAY ==
--- NOTE | 2022-07-24 08:47 | DI.MRI.S_ITS ---
PROCEDURE: MR HEAD/BRAIN WO CON INDICATIONS: memory loss TECHNIQUE: Non-contrast axial T1 spin echo, axial T2 fast spin echo, sagittal and axial FLAIR, coronal T2 fast spin echo, axial gradient echo, axial diffusion and ADC through the brain. COMPARISON: None. FINDINGS: Image quality: Excellent. CSF spaces: Ventricles appear symmetric in size and shape. Basal cisterns are patent. No extra-axial fluid collections. Brain: No intracranial bleeds or mass effects. There is cerebral volume loss for age. There are periventricular and deep white matter chronic small vessel ischemic changes. Brainstem appears normal. Diffusion-weighted images show no acute ischemic insults. No chronic ischemic insults. Normal intravascular flow voids are present. Skull and face: Calvarial bone marrow is normal in signal. Orbits are normal. Note is made of bilateral lens replacements. Sinuses: Sinuses and mastoids are clear. IMPRESSION: Brain MRI within normal limits for age, with note made age-appropriate brain parenchymal volume loss and chronic small vessel ischemic change. No imaging explanation is found for this patient's presenting symptoms. Dictated by: Bao Ortega M.D. on 07/24/2022 at 11:55 Approved by: Bao Ortega M.D. on 07/24/2022 at 11:56
== END ==
PROVIDERS: PCP Family Medicine; Referring Provider Family Medicine; Visit Provider Family Medicine
DX: R41.3 Other amnesia (principal); E78.2 Mixed hyperlipidemia
CPT/HCPCS: 70551

== ENCOUNTER → 2022-08-27 11:23 | Outpatient (RCR) | payer MEDICARE, OTHER, SELFPAY ==
--- NOTE | 2021-03-14 15:27 | PT.OIE ---
Current Diagnoses Metatarsalgia, unspecified foot (03/14/21) Difficulty in walking, not elsewhere classified (03/14/21) Weakness (03/14/21) Edema, unspecified (03/14/21) Past Medical History (Last Reviewed 11/13/20 @ 08:23 by Juan J Cortez MD) Arthritis of left hand Asthma (~2014) Cataracts, bilateral (~2015) Disc degeneration, lumbar Endometriosis (~1977) Foot pain (~2019) Healthy adult Hyperlipidemia Rosacea (~2019) Status post breast reduction (~2015) Wears glasses Past Surgical History (Last Reviewed 11/13/20 @ 08:23 by Juan J Cortez MD) Anesthesia Status post breast reduction (~2015) Visit Care Team Role Provider Type Juan J Cortez MD Primary Care Provider Physician Specialty: Family Practice Address: [address] [place] [address] Email: [email or web address] Attending Provider Referring Provider Specialty: Address: Phone: Fax: Email: Physical Therapy Initial Evaluation PT-OP-A Visit Information Start: 03/13/21 15:30 Freq: Status: Active Protocol: Document 03/14/21 08:15 SAK (Rec: 03/14/21 15:26 [facility] [id number]) Out-Patient Physical Therapy Visit Information Visit Information Visit Type Initial Evaluation Visit Start Time 08:15 Visit Stop Time 09:10 Total Visit Minutes 55 Visit Number 1 Number of CERTIFIED TECHNICIAN Visits 0 Evaluation Information Evaluation Date 03/14/21 Precautions Precautions toe pinning, no ultrasound over pins PT-OP-B Current Condition Start: 03/13/21 15:30 Freq: Status: Active Protocol: Document 03/14/21 08:15 SAK (Rec: 03/14/21 08:52 SAK [id number]) Current Condition History of Current Condition Onset Date September 2020 Current Complaints pain, swelling, decreased ROM. History of Current Condition Went to [employer] due to persistent burning in bottom of left foot starting September 2020 with no known cause, x- ray negative but had surgery 12/05/20 to shorten metatarsals 2-3 and reports 2 screws inserted. Reports worse pain after surgery; no burning bottom of foot, but disabling pain in surgical area. Also c /o 2 and third toes now overlapping, and don't touch the ground when standing, poor movement of toes, inability to tolerate usual activities including simple standing and walking. Surgeon advised patient PT wouldn't help and it would take at least a year to recover from surgery. Had second opinion with [employer] Dr. Mckenzie 2 weeks ago (02/26/21) prescribed 7 days of steroids and Gabapentin and patient has noted some improvement with medication, decreased warmth and redness and some decrease in pain and swelling, though no improvement in movement and pain can still be as high as 9/10 at times. Has appointment also scheduled with Dr. Carrasco 03/28/21 [employer] for another opinion . Prior Treatments and Tests Has used some ice, pain medication. Treatment Goals Patient/Caregiver Goals return to full active use of her left LE Prior Functional Status Baseline Function- ADL's Modified Independent Baseline Function- Gait independent, some burning pain left foot since September 2020 Current Functional Impairments (Reported) Functional Limitations- ADL's painful to stand, walk Functional Limitations- Mobility/Gait painful, antalgic at times Functional Limitations- Work/School retired Functional Limitations- Recreation/ unable to take daily walks as Hobbies previously Personal Factors Other Personal Factors That May Effect patient highly motivated Therapy/Recovery PT-OP-C Subjective Start: 03/13/21 15:30 Freq: Status: Active Protocol: Document 03/14/21 08:15 [facility] (Rec: 03/14/21 15:26 [facility] [id number]) Patient Questionnaires Lower Extremity Functional Scale LEFS Score 46 OP-PT Pain Assessment Location left foot Pain Location Details whole foot, concentrated 2nd and 3rd metatarsals; surgery area Intensity 9 Scale Used Numeric (0 - 10) Description Aching,Burning,Pressure,Sharp, Stabbing,Tender,Tightness, Throbbing Frequency Frequent Pain Aggravating Factors Standing,Walking PT-OP-D Balance Start: 03/13/21 15:30 Freq: Status: Active Protocol: Document 03/14/21 08:15 [facility] (Rec: 03/14/21 15:26 [facility] [id number]) OP-PT Balance Assessment Standing Balance Standing Balance Comments not assessed due to high pain level Read Fall Scale Copyright Permission PT-OP-F Manual Assessment Start: 03/13/21 15:30 Freq: Status: Active Protocol: Document 03/14/21 08:15 SAK (Rec: 03/14/21 15:26 [facility] [id number]) Manual Assessments Soft Tissue Assessment Soft Tissue Mobility Assessment decreased soft tissue mobility of surgical scar between 2nd and 3rd metatarsals Joint Mobility Assessment Joint Mobility Assessment decreased mobility between 2nd and 3rd metatarsals, decreased inf glide MTP joints left 2nd and 3rd PT-OP-G Mobility & Gait Start: 03/13/21 15:30 Freq: Status: Active Protocol: Document 03/14/21 08:15 SAK (Rec: 03/14/21 15:26 [facility] [id number]) OP Gait Assessment Gait Gait Assistance Required: Independent Assistive Devices Assistive Device None Gait Deviations General Gait Pattern Antalgic Factors Limiting Gait Function Factors Limiting Gait Function Decreased Strength,Limited Range of Motion,Pain PT-OP-H Neuro Start: 03/13/21 15:30 Freq: Status: Active Protocol: Document 03/14/21 08:15 SAK (Rec: 03/14/21 15:26 [facility] [id number]) Sensation Evaluation Gross Sensation Gross Sensation Left LE Impaired Sensation Description Hyperesthesia PT-OP-J Posture/Palpation/Skin Start: 03/13/21 15:30 Freq: Status: Active Protocol: Document 03/14/21 08:15 [facility] (Rec: 03/14/21 15:26 [facility] [id number]) Posture Evaluation Position Standing Toe Posture (L) Extended Toes Comments Posture Comments 2nd and 3rd toes don't touch the ground in standing, no space between 2nd and 3rd toes Palpation Assessment Location One Palpation Location left foot Palpation Findings Soft Tissue Tightness, Tenderness Palpation Details increased warmth left foot, decreased scar mobility Skin Assessment Edema Assessment Left Foot Edema Type Non-Pitting Edema Degree 2+ Edema Appearance Discolored,Shiny,Taut Subjective Edema Description Tightness PT-OP-K Range of Motion Start: 03/13/21 15:30 Freq: Status: Active Protocol: Document 03/14/21 08:15 SAK (Rec: 03/14/21 15:26 [facility] [id number]) Ankle and Foot Goniometric Range of Motion Ankle and Foot isabella Ankle/Foot ROM WFL Yes Toe Range of Motion Toe Left Toe ROM WFL No MTP Flexion Active (degrees) 0 MTP Flexion Passive (degrees) 5 MTP Extension Active (degrees) 5 MTP Extension Passive (degrees) 10 PIP Flexion Active (degrees) 0 PIP Flexion Passive (degrees) 3 PIP Extension Active (degrees) 0 PIP Extension Passive (degrees) 0 DIP Flexion Active (degrees) 0 DIP Flexion Passive (degrees) 3 DIP Extension Active (degrees) 0 DIP Extension Passive (degrees) 0 Comments 2nd and 3rd metatarsals PT-OP-M Strength Start: 03/13/21 15:30 Freq: Status: Active Protocol: Document 03/14/21 08:15 [facility] (Rec: 03/14/21 15:26 [facility] [id number]) Toe Strength Toe Manual Muscle Testing Left 3rd Toe Flexion 1 Trace Extension 1 Trace Left 2nd Toe Flexion 1 Trace Extension 1 Trace Left Great Toe Flexion 5 Normal Extension 5 Normal Right Flexion 5 Normal Extension 5 Normal PT-OP-Q Treatments Start: 03/13/21 15:30 Freq: Status: Active Protocol: Document 03/14/21 08:15 [facility] (Rec: 03/14/21 15:26 [facility] [id number]) Manual Therapy Treatment Soft Tissue Mobilization scar mobilization Body Location left foot Mobilization Type Other Intensity/Depth Superficial Body Position Hooklying Comments instructed to use vitamin E oil for scar softening Taping 1 Body Location left toes: 2nd and 3rd Treatment Focus re-align Type of Tape Kinesio Tape Skin Inspection intact Comments 2 narrow I strips across dorsum of foot, anchored on bottom of foot with gentle pressure. Patient issued tape for self-taping Self-Care/Home Management Treatment Education Patient Education Home Exercise Program Other Education ice bath benefits of aquatic exercise benefits of wearing toe socks, toe spacers self-taping with info on obtaining own kinesiotape PT-OP-R Modalities Start: 03/13/21 15:30 Freq: Status: Active Protocol: Document 03/14/21 08:15 [facility] (Rec: 03/14/21 15:26 [facility] [id number]) Hot Pack/Cold Pack Treatment ice bath Location left foot Patient Position Sitting Treatment Duration (minutes) 3 Patient Tolerance Fair Comments try to extend to 5 min. May alternate with warm bath PT-OP-T Assessment and Plan Start: 03/13/21 15:30 Freq: Status: Active Protocol: Document 03/14/21 08:15 [facility] (Rec: 03/14/21 15:26 [facility] [id number]) Physical Therapy Assessment Rehab Potential Rehabilitation Potential Good Evaluation Complexity Number of Personal Factors/Comorbidities 1-2 Number of Body Systems Impaired 3 Clinical Presentation at Evaluation Evolving Impairments Impairments Gait,Pain,ROM,Soft Tissue Mobility,Strength Goals Five Impairment poor scar mobility Surveillance Observer Goal (LTG) Improve scar mobility to WNL to allow for improved mobility of left foot and toes LTG Duration 06/12/21 Four Impairment antalgic gait Short Term Goal (STG) patient able to ambulate without limp on level surfaces without assistive device STG Duration 05/02/21 Surveillance Observer Goal (LTG) Patient will be able to ambulate on uneven surfaces including stairs with alternating step pattern with minimal to no pain. LTG Duration 06/12/21 Three Impairment weakness left 2nd and 3rd toes Prison Goal (LTG) Improve strength left 2nd and 3rd toes to at least 4+/5 to allow for normalization of push-off phases of gait LTG Duration 06/12/21 Two Impairment limited ROM left 2nd and 3rd toes Short Term Goal (STG) Patient will improve left 2nd and 3rd toe flexion to allow her to be able to get 2nd and 3rd toes touching the ground in standing position. STG Duration 05/02/21 Surveillance Observer Goal (LTG) Improve left 2nd and 3rd toe flexion to WNL to allow for full functioning of left foot LTG Duration 06/12/21 One Impairment lower extremity functional scale 46% Short Term Goal (STG) Improve LEFS to at least 60% STG Duration 05/02/21 Prison Goal (LTG) Improve LEFS to at least 75% including ability to take walks of 1-2 miles with minimal to no pain. LTG Duration 06/12/21 Assessment Summary Assessment Patient presents with function -limiting pain left foot following metatarsal surgery with pinning. She has less burning pain on the bottom of her foot which was her initial symptom but has moderate to severe pain in area of surgery and is limited to minimal activity level at this time. In standing her 2nd and 3rd toes don't touch the ground and she has poor ability to actively move those those. Her scar mobility is limited and still has swelling and warmth although reports some improvement in swelling and pain after recently prescribed round of steriod medication as well as Gabapentin. Today' s session consisted of evaluation, education in ROM exercises, self-massage, application of kinesiotaping to 2nd and 3rd toes to facilitate gentle repositioning, ice bath, recommendation for aquatic exercise and use of toe socks. Also instructed to try use of cane or trekking pole at this time to decrease pressure on toes when walking. Patient is highly motivated and demonstrated good understanding of all. She will be seeing one additional [employer] for further opinion and recommendatoins. Physical Therapy Plan Frequency and Duration Frequency of Treatment 2x/Week Duration of Treatment 12 weeks Plan of Care Start Date 03/14/21 Plan of Care End Date 06/12/21 Therapeutic Interventions Therapeutic Interventions Aquatic Therapy,Gait Training, Home Exercise Program,Manual Therapy,Neuromuscular Re- education,Patient/Caregiver Education,Self-Care/Home Management,Soft Tissue Mobilization,Taping, Therapeutic Activities, Therapeutic Exercises Modalities Cold Pack/Ice Massage,Electric Stimulation,Hot Packs, Infrared Therapy,Iontophoresis Next Visit Focus/Plan Next Note Type Treatment Note Next Visit Plan Review HEP, self-taping, icing , toe socks, aquatic exercise. Gentle ther ex progression as tolerated, manual therapy for scar mobilization, ROM.
--- NOTE | 2021-03-14 15:28 | PT.OPPOC ---
Physical, Occupational & Speech Therapy At [facility] Current Diagnoses Metatarsalgia, unspecified foot (03/14/21) Difficulty in walking, not elsewhere classified (03/14/21) Weakness (03/14/21) Edema, unspecified (03/14/21) Visit Care Team Role Provider Type Juan J Cortez MD Primary Care Provider Physician Specialty: Family Practice Address: [address] [place] [address], [facility] Email: [email or web address] Attending Provider Referring Provider Specialty: Address: Phone: Fax: Email: Plan Of Care PT-OP-T Assessment and Plan Start: 03/13/21 15:30 Freq: Status: Active Protocol: Document 03/14/21 08:15 SAK (Rec: 03/14/21 15:26 SAK [id number]) Physical Therapy Assessment Rehab Potential Rehabilitation Potential Good Evaluation Complexity Number of Personal Factors/Comorbidities 1-2 Number of Body Systems Impaired 3 Clinical Presentation at Evaluation Evolving Impairments Impairments Gait,Pain,ROM,Soft Tissue Mobility,Strength Goals Five Impairment poor scar mobility Nursing Home Goal (LTG) Improve scar mobility to WNL to allow for improved mobility of left foot and toes LTG Duration 06/12/21 Four Impairment antalgic gait Short Term Goal (STG) patient able to ambulate without limp on level surfaces without assistive device STG Duration 05/02/21 [employer]str[employer] Reports Developer Goal (LTG) Patient will be able to ambulate on uneven surfaces including stairs with alternating step pattern with minimal to no pain. LTG Duration 06/12/21 Three Impairment weakness left 2nd and 3rd toes Nursing Home Goal (LTG) Improve strength left 2nd and 3rd toes to at least 4+/5 to allow for normalization of push-off phases of gait LTG Duration 06/12/21 Two Impairment limited ROM left 2nd and 3rd toes Short Term Goal (STG) Patient will improve left 2nd and 3rd toe flexion to allow her to be able to get 2nd and 3rd toes touching the ground in standing position. STG Duration 05/02/21 Nursing Home Goal (LTG) Improve left 2nd and 3rd toe flexion to WNL to allow for full functioning of left foot LTG Duration 06/12/21 One Impairment lower extremity functional scale 46% Short Term Goal (STG) Improve LEFS to at least 60% STG Duration 05/02/21 Microstrategy Reports Developer Goal (LTG) Improve LEFS to at least 75% including ability to take walks of 1-2 miles with minimal to no pain. LTG Duration 06/12/21 Assessment Summary Assessment Patient presents with function -limiting pain left foot following metatarsal surgery with pinning. She has less burning pain on the bottom of her foot which was her initial symptom but has moderate to severe pain in area of surgery and is limited to minimal activity level at this time. In standing her 2nd and 3rd toes don't touch the ground and she has poor ability to actively move those those. Her scar mobility is limited and still has swelling and warmth although reports some improvement in swelling and pain after recently prescribed round of steriod medication as well as Gabapentin. Today' s session consisted of evaluation, education in ROM exercises, self-massage, application of kinesiotaping to 2nd and 3rd toes to facilitate gentle repositioning, ice bath, recommendation for aquatic exercise and use of toe socks. Also instructed to try use of cane or trekking pole at this time to decrease pressure on toes when walking. Patient is highly motivated and demonstrated good understanding of all. She will be seeing one additional hair dryer for further opinion and recommendatoins. Physical Therapy Plan Frequency and Duration Frequency of Treatment 2x/Week Duration of Treatment 12 weeks Plan of Care Start Date 03/14/21 Plan of Care End Date 06/12/21 Therapeutic Interventions Therapeutic Interventions Aquatic Therapy,Gait Training, Home Exercise Program,Manual Therapy,Neuromuscular Re- education,Patient/Caregiver Education,Self-Care/Home Management,Soft Tissue Mobilization,Taping, Therapeutic Activities, Therapeutic Exercises Modalities Cold Pack/Ice Massage,Electric Stimulation,Hot Packs, Infrared Therapy,Iontophoresis Next Visit Focus/Plan Next Note Type Treatment Note Next Visit Plan Review HEP, self-taping, icing , toe socks, aquatic exercise. Gentle ther ex progression as tolerated, manual therapy for scar mobilization, ROM. Plan of Care Dates Plan of Care Start Date 03/14/21 Plan of Care End Date 06/12/21 Electronically Signed by: Bri Patel, PT 03/14/21 [id number] Please Sign and Return: I have reviewed this Plan of Care and certify that the skilled therapy services above are required to meet the patient?s needs. Physician Signature Date Printed Name and Credentials Clinical Instructor Signature Printed Name and Credentials
--- NOTE | 2021-03-27 15:59 | PT.OTN ---
Current Diagnoses Metatarsalgia, unspecified foot (03/27/21) Difficulty in walking, not elsewhere classified (03/27/21) Weakness (03/27/21) Edema, unspecified (03/27/21) Physical Therapy Treatment Note PT-OP-A Visit Information Start: 03/13/21 15:30 Freq: Status: Active Protocol: Document 03/27/21 08:12 [facility] (Rec: 03/27/21 09:00 [facility] [id number]) Out-Patient Physical Therapy Visit Information Visit Information Visit Type Treatment Note Visit Start Time 08:15 Visit Stop Time 09:03 Total Visit Minutes 48 Visit Number 2 Number of PORCELAIN WAXER Visits 0 Evaluation Information Evaluation Date 03/14/21 Precautions Precautions toe pinning, no ultrasound over pins PT-OP-B Current Condition Start: 03/13/21 15:30 Freq: Status: Active Protocol: Document 03/14/21 08:15 [facility] (Rec: 03/14/21 08:52 [facility] [id number]) Current Condition History of Current Condition Onset Date September 2020 Current Complaints pain, swelling, decreased ROM. History of Current Condition Went to dietary supervisor due to persistent burning in bottom of left foot starting September 2020 with no known cause, x- ray negative but had surgery 12/05/20 to shorten metatarsals 2-3 and reports 2 screws inserted. Reports worse pain after surgery; no burning bottom of foot, but disabling pain in surgical area. Also c /o 2 and third toes now overlapping, and don't touch the ground when standing, poor movement of toes, inability to tolerate usual activities including simple standing and walking. Surgeon advised patient PT wouldn't help and it would take at least a year to recover from surgery. Had second opinion with dietary supervisor Dr. Mckenzie 2 weeks ago (02/26/21) prescribed 7 days of steroids and Gabapentin and patient has noted some improvement with medication, decreased warmth and redness and some decrease in pain and swelling, though no improvement in movement and pain can still be as high as 9/10 at times. Has appointment also scheduled with Dr. Carrasco 03/28/21 dietary supervisor for another opinion . Prior Treatments and Tests Has used some ice, pain medication. Treatment Goals Patient/Caregiver Goals return to full active use of her left LE Prior Functional Status Baseline Function- ADL's Modified Independent Baseline Function- Gait independent, some burning pain left foot since September 2020 Current Functional Impairments (Reported) Functional Limitations- ADL's painful to stand, walk Functional Limitations- Mobility/Gait painful, antalgic at times Functional Limitations- Work/School retired Functional Limitations- Recreation/ unable to take daily walks as Hobbies previously Personal Factors Other Personal Factors That May Effect patient highly motivated Therapy/Recovery PT-OP-C Subjective Start: 03/13/21 15:30 Freq: Status: Active Protocol: Document 03/27/21 08:12 [facility] (Rec: 03/27/21 09:00 [facility] [id number]) OP-PT Subjective Patient Comments Patient Comments Since last seen has had terrible difficulty with her asthma including allergic reaction to a cough medication . Taking last dose of Prednisone today. Due to this hasn't done much exercise. Has tolerated kinesiotape by PT well, better than hunter taping done by dietary supervisor. Has not removed tape from PT despite being told remove after no more than 5 days, said it felt fine. Has ordered toe socks but haven't come. Hasn't done ice bath but states pain less with improved positioning. PT-OP-D Balance Start: 03/13/21 15:30 Freq: Status: Active Protocol: Document 03/14/21 08:15 [facility] (Rec: 03/14/21 15:26 [facility] [id number]) OP-PT Balance Assessment Standing Balance Standing Balance Comments not assessed due to high pain level Read Fall Scale Copyright Permission PT-OP-F Manual Assessment Start: 03/13/21 15:30 Freq: Status: Active Protocol: Document 03/14/21 08:15 [facility] (Rec: 03/14/21 15:26 [facility] [id number]) Manual Assessments Soft Tissue Assessment Soft Tissue Mobility Assessment decreased soft tissue mobility of surgical scar between 2nd and 3rd metatarsals Joint Mobility Assessment Joint Mobility Assessment decreased mobility between 2nd and 3rd metatarsals, decreased inf glide MTP joints left 2nd and 3rd PT-OP-G Mobility & Gait Start: 03/13/21 15:30 Freq: Status: Active Protocol: Document 03/14/21 08:15 [facility] (Rec: 03/14/21 15:26 [facility] [id number]) OP Gait Assessment Gait Gait Assistance Required: Independent Assistive Devices Assistive Device None Gait Deviations General Gait Pattern Antalgic Factors Limiting Gait Function Factors Limiting Gait Function Decreased Strength,Limited Range of Motion,Pain PT-OP-H Neuro Start: 03/13/21 15:30 Freq: Status: Active Protocol: Document 03/14/21 08:15 [facility] (Rec: 03/14/21 15:26 [facility] [id number]) Sensation Evaluation Gross Sensation Gross Sensation Left LE Impaired Sensation Description Hyperesthesia PT-OP-J Posture/Palpation/Skin Start: 03/13/21 15:30 Freq: Status: Active Protocol: Document 03/14/21 08:15 [facility] (Rec: 03/14/21 15:26 [facility] [id number]) Posture Evaluation Position Standing Toe Posture (L) Extended Toes Comments Posture Comments 2nd and 3rd toes don't touch the ground in standing, no space between 2nd and 3rd toes Palpation Assessment Location One Palpation Location left foot Palpation Findings Soft Tissue Tightness, Tenderness Palpation Details increased warmth left foot, decreased scar mobility Skin Assessment Edema Assessment Left Foot Edema Type Non-Pitting Edema Degree 2+ Edema Appearance Discolored,Shiny,Taut Subjective Edema Description Tightness PT-OP-K Range of Motion Start: 03/13/21 15:30 Freq: Status: Active Protocol: Document 03/14/21 08:15 [facility] (Rec: 03/14/21 15:26 [facility] [id number]) Ankle and Foot Goniometric Range of Motion Ankle and Foot isabella Ankle/Foot ROM WFL Yes Toe Range of Motion Toe Left Toe ROM WFL No MTP Flexion Active (degrees) 0 MTP Flexion Passive (degrees) 5 MTP Extension Active (degrees) 5 MTP Extension Passive (degrees) 10 PIP Flexion Active (degrees) 0 PIP Flexion Passive (degrees) 3 PIP Extension Active (degrees) 0 PIP Extension Passive (degrees) 0 DIP Flexion Active (degrees) 0 DIP Flexion Passive (degrees) 3 DIP Extension Active (degrees) 0 DIP Extension Passive (degrees) 0 Comments 2nd and 3rd metatarsals PT-OP-M Strength Start: 03/13/21 15:30 Freq: Status: Active Protocol: Document 03/14/21 08:15 [facility] (Rec: 03/14/21 15:26 [facility] [id number]) Toe Strength Toe Manual Muscle Testing Left 3rd Toe Flexion 1 Trace Extension 1 Trace Left 2nd Toe Flexion 1 Trace Extension 1 Trace Left Great Toe Flexion 5 Normal Extension 5 Normal Right Flexion 5 Normal Extension 5 Normal PT-OP-Q Treatments Start: 03/13/21 15:30 Freq: Status: Active Protocol: Document 03/27/21 08:12 [facility] (Rec: 03/27/21 09:00 [facility] [id number]) Cardio Equipment Recumbent Elliptical (Biodex) Duration (Minutes) 5 Resistance 1 Therapeutic Exercises Sitting Exercises BAPS Equipment Used L2 Reps/Minutes 10x ea Comments fwd/bck, side to side piano toes Comments unable to do actively toe flex Reps/Minutes 10x Comments gentle manual resistance foot circles Reps/Minutes 10x foot inv/ev Reps/Minutes 10x ankle df/pf with toe ext/flex Reps/Minutes 10x towel scrunch Reps/Minutes 10x Standing Exercises heel/toe raise Reps/Minutes 10x tandem stand Reps/Minutes 3 min tiltboard Reps/Minutes 4 min Comments bal, forward/back weight shift with emphasis on toe contact Manual Therapy Treatment Soft Tissue Mobilization scar mobilization Body Location left foot Mobilization Type Other Intensity/Depth Moderate Body Position Hooklying Taping 1 Comments held to give skin a chance to rest, patient has tape at home to re-tape tomorrow. Other Other Manual Treatments AP at metatarsal joints throughout foot. Passive toe extension and flexion stretching Self-Care/Home Management Treatment Education Patient Education Home Exercise Program Other Education reviewed written HEP; patient demonstrated good understanding PT-OP-R Modalities Start: 03/13/21 15:30 Freq: Status: Active Protocol: Document 03/27/21 08:12 [facility] (Rec: 03/27/21 15:59 [facility] [id number]) Hot Pack/Cold Pack Treatment ice bath Location left foot Patient Position Sitting Treatment Duration (minutes) 3 Patient Tolerance Fair Comments try to extend to 5 min. May alternate with warm bath PT-OP-T Assessment and Plan Start: 03/13/21 15:30 Freq: Status: Active Protocol: Document 03/27/21 08:12 [facility] (Rec: 03/27/21 09:00 [facility] [id number]) Physical Therapy Assessment Goals Five Impairment poor scar mobility Penitentiary Goal (LTG) Improve scar mobility to WNL to allow for improved mobility of left foot and toes LTG Duration 06/12/21 Four Impairment antalgic gait Short Term Goal (STG) patient able to ambulate without limp on level surfaces without assistive device STG Duration 05/02/21 Penitentiary Goal (LTG) Patient will be able to ambulate on uneven surfaces including stairs with alternating step pattern with minimal to no pain. LTG Duration 06/12/21 Three Impairment weakness left 2nd and 3rd toes Biochemistry Technologist Goal (LTG) Improve strength left 2nd and 3rd toes to at least 4+/5 to allow for normalization of push-off phases of gait LTG Duration 06/12/21 Two Impairment limited ROM left 2nd and 3rd toes Short Term Goal (STG) Patient will improve left 2nd and 3rd toe flexion to allow her to be able to get 2nd and 3rd toes touching the ground in standing position. STG Duration 05/02/21 Penitentiary Goal (LTG) Improve left 2nd and 3rd toe flexion to WNL to allow for full functioning of left foot LTG Duration 06/12/21 One Impairment lower extremity functional scale 46% Short Term Goal (STG) Improve LEFS to at least 60% STG Duration 05/02/21 Penitentiary Goal (LTG) Improve LEFS to at least 75% including ability to take walks of 1-2 miles with minimal to no pain. LTG Duration 06/12/21 Progress Towards Goals Progress Towards Goals Progressing Toward Goals Assessment Summary Assessment Patient reporting some decrease in pain, felt kinesiotape helpful, though it was held today to give her skin a chance to rest, patient has tape to retape on own at home tomorrow. Is using trekking poles as recommended, has ordered toe socks. Hasn' t done ice bath or much exercise yet due to not feeling well. Demonstrated good understanding of HEP. Physical Therapy Plan Frequency and Duration Frequency of Treatment 2x/Week Duration of Treatment 12 weeks Plan of Care Start Date 03/14/21 Plan of Care End Date 06/12/21 Therapeutic Interventions Therapeutic Interventions Aquatic Therapy,Gait Training, Home Exercise Program,Manual Therapy,Neuromuscular Re- education,Patient/Caregiver Education,Self-Care/Home Management,Soft Tissue Mobilization,Taping, Therapeutic Activities, Therapeutic Exercises Modalities Cold Pack/Ice Massage,Electric Stimulation,Hot Packs, Infrared Therapy,Iontophoresis Next Visit Focus/Plan Next Note Type Treatment Note Next Visit Plan Gentle ther ex progression as tolerated, with emphasis on closed chain ther ex, gait retraining to facilitate active toe push off.
--- NOTE | 2021-04-16 17:50 | PT.OTN ---
Current Diagnoses Metatarsalgia, unspecified foot (04/16/21) Difficulty in walking, not elsewhere classified (04/16/21) Weakness (04/16/21) Edema, unspecified (04/16/21) Physical Therapy Treatment Note PT-OP-A Visit Information Start: 03/13/21 15:30 Freq: Status: Active Protocol: Document 04/16/21 14:23 [facility] (Rec: 04/16/21 15:22 [facility] [id number]) Out-Patient Physical Therapy Visit Information Visit Information Visit Type Treatment Note Visit Start Time 14:30 Visit Stop Time 15:10 Visit Number 3 Number of MEDICAL TECHNOLOGIST HEMATOLOGY Visits 1 Precautions Precautions toe pinning, no ultrasound over pins PT-OP-B Current Condition Start: 03/13/21 15:30 Freq: Status: Active Protocol: Document 03/14/21 08:15 [facility] (Rec: 03/14/21 08:52 [facility] [id number]) Current Condition History of Current Condition Onset Date September 2020 Current Complaints pain, swelling, decreased ROM. History of Current Condition Went to academic guidance specialist due to persistent burning in bottom of left foot starting September 2020 with no known cause, x- ray negative but had surgery 12/05/20 to shorten metatarsals 2-3 and reports 2 screws inserted. Reports worse pain after surgery; no burning bottom of foot, but disabling pain in surgical area. Also c /o 2 and third toes now overlapping, and don't touch the ground when standing, poor movement of toes, inability to tolerate usual activities including simple standing and walking. Surgeon advised patient PT wouldn't help and it would take at least a year to recover from surgery. Had second opinion with academic guidance specialist Dr. Mckenzie 2 weeks ago (02/26/21) prescribed 7 days of steroids and Gabapentin and patient has noted some improvement with medication, decreased warmth and redness and some decrease in pain and swelling, though no improvement in movement and pain can still be as high as 9/10 at times. Has appointment also scheduled with Dr. Carrasco 03/28/21 academic guidance specialist for another opinion . Prior Treatments and Tests Has used some ice, pain medication. Treatment Goals Patient/Caregiver Goals return to full active use of her left LE Prior Functional Status Baseline Function- ADL's Modified Independent Baseline Function- Gait independent, some burning pain left foot since September 2020 Current Functional Impairments (Reported) Functional Limitations- ADL's painful to stand, walk Functional Limitations- Mobility/Gait painful, antalgic at times Functional Limitations- Work/School retired Functional Limitations- Recreation/ unable to take daily walks as Hobbies previously Personal Factors Other Personal Factors That May Effect patient highly motivated Therapy/Recovery PT-OP-C Subjective Start: 03/13/21 15:30 Freq: Status: Active Protocol: Document 04/16/21 14:23 [facility] (Rec: 04/16/21 15:22 [facility] [id number]) OP-PT Subjective Patient Comments Patient Comments Pt hopes to start being more consistent with therapy. She cancelled her drs appt tomorrow since she has no update for him because she hasn't been into therapy in several weeks. PT-OP-D Balance Start: 03/13/21 15:30 Freq: Status: Active Protocol: Document 03/14/21 08:15 [facility] (Rec: 03/14/21 15:26 [facility] [id number]) OP-PT Balance Assessment Standing Balance Standing Balance Comments not assessed due to high pain level Read Fall Scale Copyright Permission PT-OP-F Manual Assessment Start: 03/13/21 15:30 Freq: Status: Active Protocol: Document 03/14/21 08:15 [facility] (Rec: 03/14/21 15:26 [facility] [id number]) Manual Assessments Soft Tissue Assessment Soft Tissue Mobility Assessment decreased soft tissue mobility of surgical scar between 2nd and 3rd metatarsals Joint Mobility Assessment Joint Mobility Assessment decreased mobility between 2nd and 3rd metatarsals, decreased inf glide MTP joints left 2nd and 3rd PT-OP-G Mobility & Gait Start: 03/13/21 15:30 Freq: Status: Active Protocol: Document 03/14/21 08:15 [facility] (Rec: 03/14/21 15:26 [facility] [id number]) OP Gait Assessment Gait Gait Assistance Required: Independent Assistive Devices Assistive Device None Gait Deviations General Gait Pattern Antalgic Factors Limiting Gait Function Factors Limiting Gait Function Decreased Strength,Limited Range of Motion,Pain PT-OP-H Neuro Start: 03/13/21 15:30 Freq: Status: Active Protocol: Document 03/14/21 08:15 [facility] (Rec: 03/14/21 15:26 [facility] [id number]) Sensation Evaluation Gross Sensation Gross Sensation Left LE Impaired Sensation Description Hyperesthesia PT-OP-J Posture/Palpation/Skin Start: 03/13/21 15:30 Freq: Status: Active Protocol: Document 03/14/21 08:15 [facility] (Rec: 03/14/21 15:26 [facility] [id number]) Posture Evaluation Position Standing Toe Posture (L) Extended Toes Comments Posture Comments 2nd and 3rd toes don't touch the ground in standing, no space between 2nd and 3rd toes Palpation Assessment Location One Palpation Location left foot Palpation Findings Soft Tissue Tightness, Tenderness Palpation Details increased warmth left foot, decreased scar mobility Skin Assessment Edema Assessment Left Foot Edema Type Non-Pitting Edema Degree 2+ Edema Appearance Discolored,Shiny,Taut Subjective Edema Description Tightness PT-OP-K Range of Motion Start: 03/13/21 15:30 Freq: Status: Active Protocol: Document 03/14/21 08:15 [facility] (Rec: 03/14/21 15:26 [facility] [id number]) Ankle and Foot Goniometric Range of Motion Ankle and Foot isabella Ankle/Foot ROM WFL Yes Toe Range of Motion Toe Left Toe ROM WFL No MTP Flexion Active (degrees) 0 MTP Flexion Passive (degrees) 5 MTP Extension Active (degrees) 5 MTP Extension Passive (degrees) 10 PIP Flexion Active (degrees) 0 PIP Flexion Passive (degrees) 3 PIP Extension Active (degrees) 0 PIP Extension Passive (degrees) 0 DIP Flexion Active (degrees) 0 DIP Flexion Passive (degrees) 3 DIP Extension Active (degrees) 0 DIP Extension Passive (degrees) 0 Comments 2nd and 3rd metatarsals PT-OP-M Strength Start: 03/13/21 15:30 Freq: Status: Active Protocol: Document 03/14/21 08:15 [facility] (Rec: 03/14/21 15:26 [facility] [id number]) Toe Strength Toe Manual Muscle Testing Left 3rd Toe Flexion 1 Trace Extension 1 Trace Left 2nd Toe Flexion 1 Trace Extension 1 Trace Left Great Toe Flexion 5 Normal Extension 5 Normal Right Flexion 5 Normal Extension 5 Normal PT-OP-Q Treatments Start: 03/13/21 15:30 Freq: Status: Active Protocol: Document 04/16/21 14:23 [facility] (Rec: 04/16/21 15:22 [facility] [id number]) Cardio Equipment Recumbent Elliptical (MediCard) Duration (Minutes) 5 Resistance 1 Seat Position 5 Therapeutic Exercises Sitting Exercises BAPS Equipment Used L2 Reps/Minutes 10x ea Comments fwd/bck, side to side toe flex Reps/Minutes 10x Comments gentle manual resistance foot circles Reps/Minutes 10x ankle df/pf with toe ext/flex Reps/Minutes 10x towel scrunch Reps/Minutes 10x Manual Therapy Treatment Soft Tissue Mobilization scar mobilization Body Location left foot Mobilization Type Other Intensity/Depth Moderate Body Position Hooklying Manual Techniques Flex/ext Type PROM flex/ext of 2&3rd toes Body Position Sitting Reps/Duration 2 min Comments flexion of 2nd toe painful, extension tolerable PT-OP-R Modalities Start: 03/13/21 15:30 Freq: Status: Active Protocol: Document 04/16/21 14:23 [facility] (Rec: 04/16/21 15:22 [facility] [id number]) Hot Pack/Cold Pack Treatment Ice Massage Location L scar Patient Position Sitting Treatment Duration (minutes) 3 Patient Tolerance Good PT-OP-T Assessment and Plan Start: 03/13/21 15:30 Freq: Status: Active Protocol: Document 04/16/21 14:23 [facility] (Rec: 04/16/21 15:22 [facility] [id number]) Physical Therapy Assessment Goals Five Impairment poor scar mobility Professor Of Theology Goal (LTG) Improve scar mobility to WNL to allow for improved mobility of left foot and toes LTG Duration 06/12/21 Four Impairment antalgic gait Short Term Goal (STG) patient able to ambulate without limp on level surfaces without assistive device STG Duration 05/02/21 Correction Goal (LTG) Patient will be able to ambulate on uneven surfaces including stairs with alternating step pattern with minimal to no pain. LTG Duration 06/12/21 Three Impairment weakness left 2nd and 3rd toes Correction Goal (LTG) Improve strength left 2nd and 3rd toes to at least 4+/5 to allow for normalization of push-off phases of gait LTG Duration 06/12/21 Two Impairment limited ROM left 2nd and 3rd toes Short Term Goal (STG) Patient will improve left 2nd and 3rd toe flexion to allow her to be able to get 2nd and 3rd toes touching the ground in standing position. STG Duration 05/02/21 Professor Of Theology Goal (LTG) Improve left 2nd and 3rd toe flexion to WNL to allow for full functioning of left foot LTG Duration 06/12/21 One Impairment lower extremity functional scale 46% Short Term Goal (STG) Improve LEFS to at least 60% STG Duration 05/02/21 Correction Goal (LTG) Improve LEFS to at least 75% including ability to take walks of 1-2 miles with minimal to no pain. LTG Duration 06/12/21 Assessment Summary Assessment Pt reports dr telling her not to tape toes to keep movement and improve ROM. Pt states she cannot tolerate ice bath due to ice being so painful but she is willing to try ice massage at end of session and tolerates well. Educated pt in using ice massage method at home to decrease inflammation and pain. Encouraged pt to get back to doing HEP to improve ROM. Pt requested trying US next treatment to help with pain. Physical Therapy Plan Frequency and Duration Frequency of Treatment 2x/Week Duration of Treatment 12 weeks Plan of Care Start Date 03/14/21 Plan of Care End Date 06/12/21 Therapeutic Interventions Therapeutic Interventions Aquatic Therapy,Gait Training, Home Exercise Program,Manual Therapy,Neuromuscular Re- education,Patient/Caregiver Education,Self-Care/Home Management,Soft Tissue Mobilization,Taping, Therapeutic Activities, Therapeutic Exercises Modalities Cold Pack/Ice Massage,Electric Stimulation,Hot Packs, Infrared Therapy,Iontophoresis Next Visit Focus/Plan Next Note Type Treatment Note Next Visit Plan Pt would like to try US for L dorsum of foot. Gentle ther ex progression as tolerated, with emphasis on closed chain ther ex, gait retraining to facilitate active toe push off.
--- NOTE | 2021-04-18 15:52 | PT.OTN ---
Current Diagnoses Metatarsalgia, unspecified foot (04/18/21) Difficulty in walking, not elsewhere classified (04/18/21) Weakness (04/18/21) Edema, unspecified (04/18/21) Physical Therapy Treatment Note PT-OP-A Visit Information Start: 03/13/21 15:30 Freq: Status: Active Protocol: Document 04/18/21 09:00 AMB (Rec: 04/18/21 15:52 AMB [email or web address]) Out-Patient Physical Therapy Visit Information Visit Information Visit Type Treatment Note Visit Start Time 09:00 Visit Stop Time 09:45 Total Visit Minutes 45 Visit Number 4 Number of FABRIC SEPARATOR OPERATOR Visits 0 PT-OP-B Current Condition Start: 03/13/21 15:30 Freq: Status: Active Protocol: Document 03/14/21 08:15 SAK (Rec: 03/14/21 08:52 SAK [id number]) Current Condition History of Current Condition Onset Date September 2020 Current Complaints pain, swelling, decreased ROM. History of Current Condition Went to radiological health specialist due to persistent burning in bottom of left foot starting September 2020 with no known cause, x- ray negative but had surgery 12/05/20 to shorten metatarsals 2-3 and reports 2 screws inserted. Reports worse pain after surgery; no burning bottom of foot, but disabling pain in surgical area. Also c /o 2 and third toes now overlapping, and don't touch the ground when standing, poor movement of toes, inability to tolerate usual activities including simple standing and walking. Surgeon advised patient PT wouldn't help and it would take at least a year to recover from surgery. Had second opinion with radiological health specialist Dr. Mckenzie 2 weeks ago (02/26/21) prescribed 7 days of steroids and Gabapentin and patient has noted some improvement with medication, decreased warmth and redness and some decrease in pain and swelling, though no improvement in movement and pain can still be as high as 9/10 at times. Has appointment also scheduled with Dr. Carrasco 03/28/21 radiological health specialist for another opinion . Prior Treatments and Tests Has used some ice, pain medication. Treatment Goals Patient/Caregiver Goals return to full active use of her left LE Prior Functional Status Baseline Function- ADL's Modified Independent Baseline Function- Gait independent, some burning pain left foot since September 2020 Current Functional Impairments (Reported) Functional Limitations- ADL's painful to stand, walk Functional Limitations- Mobility/Gait painful, antalgic at times Functional Limitations- Work/School retired Functional Limitations- Recreation/ unable to take daily walks as Hobbies previously Personal Factors Other Personal Factors That May Effect patient highly motivated Therapy/Recovery PT-OP-C Subjective Start: 03/13/21 15:30 Freq: Status: Active Protocol: Document 04/18/21 09:00 AMB (Rec: 04/18/21 15:52 AMB [email or web address]) OP-PT Subjective Patient Comments Patient Comments Pt states she has been frustrated by the lack of consistency in PT. PT-OP-D Balance Start: 03/13/21 15:30 Freq: Status: Active Protocol: Document 03/14/21 08:15 SAK (Rec: 03/14/21 15:26 SAK [id number]) OP-PT Balance Assessment Standing Balance Standing Balance Comments not assessed due to high pain level Read Fall Scale Copyright Permission PT-OP-F Manual Assessment Start: 03/13/21 15:30 Freq: Status: Active Protocol: Document 03/14/21 08:15 SAK (Rec: 03/14/21 15:26 SAK [id number]) Manual Assessments Soft Tissue Assessment Soft Tissue Mobility Assessment decreased soft tissue mobility of surgical scar between 2nd and 3rd metatarsals Joint Mobility Assessment Joint Mobility Assessment decreased mobility between 2nd and 3rd metatarsals, decreased inf glide MTP joints left 2nd and 3rd PT-OP-G Mobility & Gait Start: 03/13/21 15:30 Freq: Status: Active Protocol: Document 03/14/21 08:15 SAK (Rec: 03/14/21 15:26 [facility] [id number]) OP Gait Assessment Gait Gait Assistance Required: Independent Assistive Devices Assistive Device None Gait Deviations General Gait Pattern Antalgic Factors Limiting Gait Function Factors Limiting Gait Function Decreased Strength,Limited Range of Motion,Pain PT-OP-H Neuro Start: 03/13/21 15:30 Freq: Status: Active Protocol: Document 03/14/21 08:15 SAK (Rec: 03/14/21 15:26 SAK [id number]) Sensation Evaluation Gross Sensation Gross Sensation Left LE Impaired Sensation Description Hyperesthesia PT-OP-J Posture/Palpation/Skin Start: 03/13/21 15:30 Freq: Status: Active Protocol: Document 03/14/21 08:15 SAK (Rec: 03/14/21 15:26 [facility] [id number]) Posture Evaluation Position Standing Toe Posture (L) Extended Toes Comments Posture Comments 2nd and 3rd toes don't touch the ground in standing, no space between 2nd and 3rd toes Palpation Assessment Location One Palpation Location left foot Palpation Findings Soft Tissue Tightness, Tenderness Palpation Details increased warmth left foot, decreased scar mobility Skin Assessment Edema Assessment Left Foot Edema Type Non-Pitting Edema Degree 2+ Edema Appearance Discolored,Shiny,Taut Subjective Edema Description Tightness PT-OP-K Range of Motion Start: 03/13/21 15:30 Freq: Status: Active Protocol: Document 03/14/21 08:15 [facility] (Rec: 03/14/21 15:26 [facility] [id number]) Ankle and Foot Goniometric Range of Motion Ankle and Foot isabella Ankle/Foot ROM WFL Yes Toe Range of Motion Toe Left Toe ROM WFL No MTP Flexion Active (degrees) 0 MTP Flexion Passive (degrees) 5 MTP Extension Active (degrees) 5 MTP Extension Passive (degrees) 10 PIP Flexion Active (degrees) 0 PIP Flexion Passive (degrees) 3 PIP Extension Active (degrees) 0 PIP Extension Passive (degrees) 0 DIP Flexion Active (degrees) 0 DIP Flexion Passive (degrees) 3 DIP Extension Active (degrees) 0 DIP Extension Passive (degrees) 0 Comments 2nd and 3rd metatarsals PT-OP-M Strength Start: 03/13/21 15:30 Freq: Status: Active Protocol: Document 03/14/21 08:15 SAK (Rec: 03/14/21 15:26 [facility] [id number]) Toe Strength Toe Manual Muscle Testing Left 3rd Toe Flexion 1 Trace Extension 1 Trace Left 2nd Toe Flexion 1 Trace Extension 1 Trace Left Great Toe Flexion 5 Normal Extension 5 Normal Right Flexion 5 Normal Extension 5 Normal PT-OP-Q Treatments Start: 03/13/21 15:30 Freq: Status: Active Protocol: Document 04/18/21 09:00 AMB (Rec: 04/18/21 15:52 AMB [email or web address]) Therapeutic Exercises Sitting Exercises toe flex Reps/Minutes 10x Comments gentle manual resistance foot inv/ev Reps/Minutes 10x ankle df/pf with toe ext/flex Reps/Minutes 10x Manual Therapy Treatment Soft Tissue Mobilization scar mobilization Body Location left foot Mobilization Type Other Intensity/Depth Moderate Body Position Hooklying Manual Techniques Flex/ext Type PROM flex/ext of 2&3rd toes Body Position Sitting Reps/Duration 2 min Comments flexion of 2nd within pain limits worked both MTP and IP, extension tolerable PT-OP-R Modalities Start: 03/13/21 15:30 Freq: Status: Active Protocol: Document 04/18/21 08:15 AMB (Rec: 04/18/21 15:52 AMB [email or web address]) Hot Pack/Cold Pack Treatment Ice Massage Location L scar Patient Position Sitting Treatment Duration (minutes) 3 Patient Tolerance Good PT-OP-T Assessment and Plan Start: 03/13/21 15:30 Freq: Status: Active Protocol: Document 04/18/21 09:00 AMB (Rec: 04/18/21 15:52 AMB [email or web address]) Physical Therapy Assessment Goals Five Impairment poor scar mobility Prison Goal (LTG) Improve scar mobility to WNL to allow for improved mobility of left foot and toes LTG Duration 06/12/21 Four Impairment antalgic gait Short Term Goal (STG) patient able to ambulate without limp on level surfaces without assistive device STG Duration 05/02/21 Dope House Operator Helper Goal (LTG) Patient will be able to ambulate on uneven surfaces including stairs with alternating step pattern with minimal to no pain. LTG Duration 06/12/21 Three Impairment weakness left 2nd and 3rd toes Dope House Operator Helper Goal (LTG) Improve strength left 2nd and 3rd toes to at least 4+/5 to allow for normalization of push-off phases of gait LTG Duration 06/12/21 Two Impairment limited ROM left 2nd and 3rd toes Short Term Goal (STG) Patient will improve left 2nd and 3rd toe flexion to allow her to be able to get 2nd and 3rd toes touching the ground in standing position. STG Duration 05/02/21 Prison Goal (LTG) Improve left 2nd and 3rd toe flexion to WNL to allow for full functioning of left foot LTG Duration 06/12/21 One Impairment lower extremity functional scale 46% Short Term Goal (STG) Improve LEFS to at least 60% STG Duration 05/02/21 Dope House Operator Helper Goal (LTG) Improve LEFS to at least 75% including ability to take walks of 1-2 miles with minimal to no pain. LTG Duration 06/12/21 Assessment Summary Assessment Reinforced pt working on exercises between sessions, especially if she isn't getting in especially regularly. Pt is hoping to be done with PT by end of May when she has an appointment for a cortisone shot in the foot. At end of appt, pt had better push off at toes, but second toe remains challenging. Physical Therapy Plan Frequency and Duration Frequency of Treatment 2x/Week Duration of Treatment 12 weeks Plan of Care Start Date 03/14/21 Plan of Care End Date 06/12/21 Therapeutic Interventions Therapeutic Interventions Aquatic Therapy,Gait Training, Home Exercise Program,Manual Therapy,Neuromuscular Re- education,Patient/Caregiver Education,Self-Care/Home Management,Soft Tissue Mobilization,Taping, Therapeutic Activities, Therapeutic Exercises Modalities Cold Pack/Ice Massage,Electric Stimulation,Hot Packs, Infrared Therapy,Iontophoresis Next Visit Focus/Plan Next Note Type Treatment Note Next Visit Plan Did not ultrasound today due to ultrasound being in the precautions but primary therapist could discuss ultrasound at dorsum. Gentle ther ex progression as tolerated, with emphasis on closed chain ther ex, gait retraining to facilitate active toe push off. [ End ]
--- NOTE | 2021-04-23 11:33 | PT.OTN ---
Current Diagnoses Metatarsalgia, unspecified foot (04/23/21) Difficulty in walking, not elsewhere classified (04/23/21) Weakness (04/23/21) Edema, unspecified (04/23/21) Physical Therapy Treatment Note PT-OP-A Visit Information Start: 03/13/21 15:30 Freq: Status: Active Protocol: Document 04/23/21 11:25 MA (Rec: 04/23/21 11:32 MA [email or web address]) Out-Patient Physical Therapy Visit Information Visit Information Visit Type Treatment Note Visit Start Time 08:20 Visit Stop Time 09:00 Total Visit Minutes 40 Visit Number 5 Number of TRANSMISSION AND PROTECTION ENGINEER Visits 1 Precautions Precautions toe pinning, no ultrasound over pins PT-OP-B Current Condition Start: 03/13/21 15:30 Freq: Status: Active Protocol: Document 03/14/21 08:15 SAK (Rec: 03/14/21 08:52 SAK [id number]) Current Condition History of Current Condition Onset Date September 2020 Current Complaints pain, swelling, decreased ROM. History of Current Condition Went to air defense control officer due to persistent burning in bottom of left foot starting September 2020 with no known cause, x- ray negative but had surgery 12/05/20 to shorten metatarsals 2-3 and reports 2 screws inserted. Reports worse pain after surgery; no burning bottom of foot, but disabling pain in surgical area. Also c /o 2 and third toes now overlapping, and don't touch the ground when standing, poor movement of toes, inability to tolerate usual activities including simple standing and walking. Surgeon advised patient PT wouldn't help and it would take at least a year to recover from surgery. Had second opinion with air defense control officer Dr. Mckenzie 2 weeks ago (02/26/21) prescribed 7 days of steroids and Gabapentin and patient has noted some improvement with medication, decreased warmth and redness and some decrease in pain and swelling, though no improvement in movement and pain can still be as high as 9/10 at times. Has appointment also scheduled with Dr. Carrasco 03/28/21 air defense control officer for another opinion . Prior Treatments and Tests Has used some ice, pain medication. Treatment Goals Patient/Caregiver Goals return to full active use of her left LE Prior Functional Status Baseline Function- ADL's Modified Independent Baseline Function- Gait independent, some burning pain left foot since September 2020 Current Functional Impairments (Reported) Functional Limitations- ADL's painful to stand, walk Functional Limitations- Mobility/Gait painful, antalgic at times Functional Limitations- Work/School retired Functional Limitations- Recreation/ unable to take daily walks as Hobbies previously Personal Factors Other Personal Factors That May Effect patient highly motivated Therapy/Recovery PT-OP-C Subjective Start: 03/13/21 15:30 Freq: Status: Active Protocol: Document 04/23/21 11:25 MA (Rec: 04/23/21 11:32 MA [email or web address]) OP-PT Subjective Patient Comments Patient Comments Pt states she feels the scar work Gin did on Friday really helped. She would like to really focus on scar tissue massage and manual flexion of her toes PT-OP-D Balance Start: 03/13/21 15:30 Freq: Status: Active Protocol: Document 03/14/21 08:15 SAK (Rec: 03/14/21 15:26 SAK [id number]) OP-PT Balance Assessment Standing Balance Standing Balance Comments not assessed due to high pain level Read Fall Scale Copyright Permission PT-OP-F Manual Assessment Start: 03/13/21 15:30 Freq: Status: Active Protocol: Document 03/14/21 08:15 SAK (Rec: 03/14/21 15:26 SAK [id number]) Manual Assessments Soft Tissue Assessment Soft Tissue Mobility Assessment decreased soft tissue mobility of surgical scar between 2nd and 3rd metatarsals Joint Mobility Assessment Joint Mobility Assessment decreased mobility between 2nd and 3rd metatarsals, decreased inf glide MTP joints left 2nd and 3rd PT-OP-G Mobility & Gait Start: 03/13/21 15:30 Freq: Status: Active Protocol: Document 03/14/21 08:15 SAK (Rec: 03/14/21 15:26 SAK [id number]) OP Gait Assessment Gait Gait Assistance Required: Independent Assistive Devices Assistive Device None Gait Deviations General Gait Pattern Antalgic Factors Limiting Gait Function Factors Limiting Gait Function Decreased Strength,Limited Range of Motion,Pain PT-OP-H Neuro Start: 03/13/21 15:30 Freq: Status: Active Protocol: Document 03/14/21 08:15 SAK (Rec: 03/14/21 15:26 SAK [id number]) Sensation Evaluation Gross Sensation Gross Sensation Left LE Impaired Sensation Description Hyperesthesia PT-OP-J Posture/Palpation/Skin Start: 03/13/21 15:30 Freq: Status: Active Protocol: Document 03/14/21 08:15 SAK (Rec: 03/14/21 15:26 [facility] [id number]) Posture Evaluation Position Standing Toe Posture (L) Extended Toes Comments Posture Comments 2nd and 3rd toes don't touch the ground in standing, no space between 2nd and 3rd toes Palpation Assessment Location One Palpation Location left foot Palpation Findings Soft Tissue Tightness, Tenderness Palpation Details increased warmth left foot, decreased scar mobility Skin Assessment Edema Assessment Left Foot Edema Type Non-Pitting Edema Degree 2+ Edema Appearance Discolored,Shiny,Taut Subjective Edema Description Tightness PT-OP-K Range of Motion Start: 03/13/21 15:30 Freq: Status: Active Protocol: Document 03/14/21 08:15 SAK (Rec: 03/14/21 15:26 [facility] [id number]) Ankle and Foot Goniometric Range of Motion Ankle and Foot isabella Ankle/Foot ROM WFL Yes Toe Range of Motion Toe Left Toe ROM WFL No MTP Flexion Active (degrees) 0 MTP Flexion Passive (degrees) 5 MTP Extension Active (degrees) 5 MTP Extension Passive (degrees) 10 PIP Flexion Active (degrees) 0 PIP Flexion Passive (degrees) 3 PIP Extension Active (degrees) 0 PIP Extension Passive (degrees) 0 DIP Flexion Active (degrees) 0 DIP Flexion Passive (degrees) 3 DIP Extension Active (degrees) 0 DIP Extension Passive (degrees) 0 Comments 2nd and 3rd metatarsals PT-OP-M Strength Start: 03/13/21 15:30 Freq: Status: Active Protocol: Document 03/14/21 08:15 [facility] (Rec: 03/14/21 15:26 [facility] [id number]) Toe Strength Toe Manual Muscle Testing Left 3rd Toe Flexion 1 Trace Extension 1 Trace Left 2nd Toe Flexion 1 Trace Extension 1 Trace Left Great Toe Flexion 5 Normal Extension 5 Normal Right Flexion 5 Normal Extension 5 Normal PT-OP-Q Treatments Start: 03/13/21 15:30 Freq: Status: Active Protocol: Document 04/23/21 11:25 MA (Rec: 04/23/21 11:32 MA [email or web address]) Therapeutic Exercises Sitting Exercises foot circles Reps/Minutes 10x foot inv/ev Reps/Minutes 10x ankle df/pf with toe ext/flex Reps/Minutes 10x towel scrunch Reps/Minutes 10x Manual Therapy Treatment Soft Tissue Mobilization scar mobilization Body Location left foot Mobilization Type Other Intensity/Depth Moderate Body Position Hooklying Manual Techniques Flex/ext Type PROM flex/ext of 2&3rd toes Body Position Sitting Reps/Duration 5' Comments pt tolerates flexion better today after scar STM PT-OP-R Modalities Start: 03/13/21 15:30 Freq: Status: Active Protocol: Document 04/23/21 11:25 MA (Rec: 04/23/21 11:32 MA [email or web address]) Hot Pack/Cold Pack Treatment Ice Massage Location L scar Patient Position Sitting Treatment Duration (minutes) 3 Patient Tolerance Good PT-OP-T Assessment and Plan Start: 03/13/21 15:30 Freq: Status: Active Protocol: Document 04/23/21 11:25 MA (Rec: 04/23/21 11:32 MA [email or web address]) Physical Therapy Assessment Goals Five Impairment poor scar mobility Halfway Goal (LTG) Improve scar mobility to WNL to allow for improved mobility of left foot and toes LTG Duration 06/12/21 Four Impairment antalgic gait Short Term Goal (STG) patient able to ambulate without limp on level surfaces without assistive device STG Duration 05/02/21 Halfway Goal (LTG) Patient will be able to ambulate on uneven surfaces including stairs with alternating step pattern with minimal to no pain. LTG Duration 06/12/21 Three Impairment weakness left 2nd and 3rd toes Halfway Goal (LTG) Improve strength left 2nd and 3rd toes to at least 4+/5 to allow for normalization of push-off phases of gait LTG Duration 06/12/21 Two Impairment limited ROM left 2nd and 3rd toes Short Term Goal (STG) Patient will improve left 2nd and 3rd toe flexion to allow her to be able to get 2nd and 3rd toes touching the ground in standing position. STG Duration 05/02/21 Membership Counselor Goal (LTG) Improve left 2nd and 3rd toe flexion to WNL to allow for full functioning of left foot LTG Duration 06/12/21 One Impairment lower extremity functional scale 46% Short Term Goal (STG) Improve LEFS to at least 60% STG Duration 05/02/21 Halfway Goal (LTG) Improve LEFS to at least 75% including ability to take walks of 1-2 miles with minimal to no pain. LTG Duration 06/12/21 Assessment Summary Assessment Pt requests focus on soft tissue work today and PROM toe (2nd & 3rd digit) flexion/ extension. She feels she is able to move her toes actively much better after previous therapy session. Discussed pt working on her scar mobs at home and continuing with her HEP. Will begin gait training with emphasis on LLE push off next session. Physical Therapy Plan Frequency and Duration Frequency of Treatment 2x/Week Duration of Treatment 12 weeks Plan of Care Start Date 03/14/21 Plan of Care End Date 06/12/21 Therapeutic Interventions Therapeutic Interventions Aquatic Therapy,Gait Training, Home Exercise Program,Manual Therapy,Neuromuscular Re- education,Patient/Caregiver Education,Self-Care/Home Management,Soft Tissue Mobilization,Taping, Therapeutic Activities, Therapeutic Exercises Modalities Cold Pack/Ice Massage,Electric Stimulation,Hot Packs, Infrared Therapy,Iontophoresis Next Visit Focus/Plan Next Note Type Treatment Note Next Visit Plan Did not ultrasound today due to ultrasound being in the precautions but primary therapist could discuss ultrasound at dorsum. Gentle ther ex progression as tolerated, with emphasis on closed chain ther ex, gait retraining to facilitate active toe push off. [ End ]
--- NOTE | 2021-04-25 10:25 | PT.OTN ---
Current Diagnoses Metatarsalgia, unspecified foot (04/25/21) Difficulty in walking, not elsewhere classified (04/25/21) Weakness (04/25/21) Edema, unspecified (04/25/21) Physical Therapy Treatment Note PT-OP-A Visit Information Start: 03/13/21 15:30 Freq: Status: Active Protocol: Document 04/25/21 09:33 MA (Rec: 04/25/21 10:25 MA [id number]) Out-Patient Physical Therapy Visit Information Visit Information Visit Type Treatment Note Visit Start Time 09:30 Visit Stop Time 10:15 Total Visit Minutes 45 Visit Number 6 Number of BUFFING MACHINE OPERATOR Visits 2 Precautions Precautions toe pinning, no ultrasound over pins PT-OP-B Current Condition Start: 03/13/21 15:30 Freq: Status: Active Protocol: Document 03/14/21 08:15 SAK (Rec: 03/14/21 08:52 SAK [id number]) Current Condition History of Current Condition Onset Date September 2020 Current Complaints pain, swelling, decreased ROM. History of Current Condition Went to day care assistant due to persistent burning in bottom of left foot starting September 2020 with no known cause, x- ray negative but had surgery 12/05/20 to shorten metatarsals 2-3 and reports 2 screws inserted. Reports worse pain after surgery; no burning bottom of foot, but disabling pain in surgical area. Also c /o 2 and third toes now overlapping, and don't touch the ground when standing, poor movement of toes, inability to tolerate usual activities including simple standing and walking. Surgeon advised patient PT wouldn't help and it would take at least a year to recover from surgery. Had second opinion with day care assistant Dr. Mckenzie 2 weeks ago (02/26/21) prescribed 7 days of steroids and Gabapentin and patient has noted some improvement with medication, decreased warmth and redness and some decrease in pain and swelling, though no improvement in movement and pain can still be as high as 9/10 at times. Has appointment also scheduled with Dr. Carrasco 03/28/21 day care assistant for another opinion . Prior Treatments and Tests Has used some ice, pain medication. Treatment Goals Patient/Caregiver Goals return to full active use of her left LE Prior Functional Status Baseline Function- ADL's Modified Independent Baseline Function- Gait independent, some burning pain left foot since September 2020 Current Functional Impairments (Reported) Functional Limitations- ADL's painful to stand, walk Functional Limitations- Mobility/Gait painful, antalgic at times Functional Limitations- Work/School retired Functional Limitations- Recreation/ unable to take daily walks as Hobbies previously Personal Factors Other Personal Factors That May Effect patient highly motivated Therapy/Recovery PT-OP-C Subjective Start: 03/13/21 15:30 Freq: Status: Active Protocol: Document 04/25/21 09:33 MA (Rec: 04/25/21 10:25 MA [id number]) OP-PT Subjective Patient Comments Patient Comments Pt feels her foot did well after last session but she went to [place] and walked around all day yesterday so her foot is more sore today. PT-OP-D Balance Start: 03/13/21 15:30 Freq: Status: Active Protocol: Document 03/14/21 08:15 SAK (Rec: 03/14/21 15:26 SAK [id number]) OP-PT Balance Assessment Standing Balance Standing Balance Comments not assessed due to high pain level Read Fall Scale Copyright Permission PT-OP-F Manual Assessment Start: 03/13/21 15:30 Freq: Status: Active Protocol: Document 03/14/21 08:15 SAK (Rec: 03/14/21 15:26 SAK [id number]) Manual Assessments Soft Tissue Assessment Soft Tissue Mobility Assessment decreased soft tissue mobility of surgical scar between 2nd and 3rd metatarsals Joint Mobility Assessment Joint Mobility Assessment decreased mobility between 2nd and 3rd metatarsals, decreased inf glide MTP joints left 2nd and 3rd PT-OP-G Mobility & Gait Start: 03/13/21 15:30 Freq: Status: Active Protocol: Document 03/14/21 08:15 SAK (Rec: 03/14/21 15:26 SAK [id number]) OP Gait Assessment Gait Gait Assistance Required: Independent Assistive Devices Assistive Device None Gait Deviations General Gait Pattern Antalgic Factors Limiting Gait Function Factors Limiting Gait Function Decreased Strength,Limited Range of Motion,Pain PT-OP-H Neuro Start: 03/13/21 15:30 Freq: Status: Active Protocol: Document 03/14/21 08:15 SAK (Rec: 03/14/21 15:26 SAK [id number]) Sensation Evaluation Gross Sensation Gross Sensation Left LE Impaired Sensation Description Hyperesthesia PT-OP-J Posture/Palpation/Skin Start: 03/13/21 15:30 Freq: Status: Active Protocol: Document 03/14/21 08:15 [facility] (Rec: 03/14/21 15:26 [facility] [id number]) Posture Evaluation Position Standing Toe Posture (L) Extended Toes Comments Posture Comments 2nd and 3rd toes don't touch the ground in standing, no space between 2nd and 3rd toes Palpation Assessment Location One Palpation Location left foot Palpation Findings Soft Tissue Tightness, Tenderness Palpation Details increased warmth left foot, decreased scar mobility Skin Assessment Edema Assessment Left Foot Edema Type Non-Pitting Edema Degree 2+ Edema Appearance Discolored,Shiny,Taut Subjective Edema Description Tightness PT-OP-K Range of Motion Start: 03/13/21 15:30 Freq: Status: Active Protocol: Document 03/14/21 08:15 [facility] (Rec: 03/14/21 15:26 [facility] [id number]) Ankle and Foot Goniometric Range of Motion Ankle and Foot isabella Ankle/Foot ROM WFL Yes Toe Range of Motion Toe Left Toe ROM WFL No MTP Flexion Active (degrees) 0 MTP Flexion Passive (degrees) 5 MTP Extension Active (degrees) 5 MTP Extension Passive (degrees) 10 PIP Flexion Active (degrees) 0 PIP Flexion Passive (degrees) 3 PIP Extension Active (degrees) 0 PIP Extension Passive (degrees) 0 DIP Flexion Active (degrees) 0 DIP Flexion Passive (degrees) 3 DIP Extension Active (degrees) 0 DIP Extension Passive (degrees) 0 Comments 2nd and 3rd metatarsals PT-OP-M Strength Start: 03/13/21 15:30 Freq: Status: Active Protocol: Document 03/14/21 08:15 [facility] (Rec: 03/14/21 15:26 [facility] [id number]) Toe Strength Toe Manual Muscle Testing Left 3rd Toe Flexion 1 Trace Extension 1 Trace Left 2nd Toe Flexion 1 Trace Extension 1 Trace Left Great Toe Flexion 5 Normal Extension 5 Normal Right Flexion 5 Normal Extension 5 Normal PT-OP-Q Treatments Start: 03/13/21 15:30 Freq: Status: Active Protocol: Document 04/25/21 09:33 MA (Rec: 04/25/21 10:25 MA [id number]) Therapeutic Exercises Sitting Exercises foot inv/ev Equipment Used lvl 1 TB Reps/Minutes 10x Comments added to HEP ankle df/pf with toe ext/flex Equipment Used lvl 1 TB Reps/Minutes 10x Comments added to HEP Standing Exercises heel/toe raise Standing Exercise Name calf rasies, staggered stance working on push off Reps/Minutes 5' Comments PT manually assisting 2nd digit Manual Therapy Treatment Soft Tissue Mobilization scar mobilization Body Location left foot Mobilization Type Other Intensity/Depth Moderate Body Position Hooklying PT-OP-R Modalities Start: 03/13/21 15:30 Freq: Status: Active Protocol: Document 04/25/21 09:33 MA (Rec: 04/25/21 10:25 MA [id number]) Hot Pack/Cold Pack Treatment Ice Massage Location L scar Patient Position Sitting Treatment Duration (minutes) 3 Patient Tolerance Good PT-OP-T Assessment and Plan Start: 03/13/21 15:30 Freq: Status: Active Protocol: Document 04/25/21 09:33 MA (Rec: 04/25/21 10:25 MA [id number]) Physical Therapy Assessment Goals Five Impairment poor scar mobility Campaign Director Goal (LTG) Improve scar mobility to WNL to allow for improved mobility of left foot and toes LTG Duration 06/12/21 Four Impairment antalgic gait Short Term Goal (STG) patient able to ambulate without limp on level surfaces without assistive device STG Duration 05/02/21 Campaign Director Goal (LTG) Patient will be able to ambulate on uneven surfaces including stairs with alternating step pattern with minimal to no pain. LTG Duration 06/12/21 Three Impairment weakness left 2nd and 3rd toes Campaign Director Goal (LTG) Improve strength left 2nd and 3rd toes to at least 4+/5 to allow for normalization of push-off phases of gait LTG Duration 06/12/21 Two Impairment limited ROM left 2nd and 3rd toes Short Term Goal (STG) Patient will improve left 2nd and 3rd toe flexion to allow her to be able to get 2nd and 3rd toes touching the ground in standing position. STG Duration 05/02/21 Correction Goal (LTG) Improve left 2nd and 3rd toe flexion to WNL to allow for full functioning of left foot LTG Duration 06/12/21 One Impairment lower extremity functional scale 46% Short Term Goal (STG) Improve LEFS to at least 60% STG Duration 05/02/21 Campaign Director Goal (LTG) Improve LEFS to at least 75% including ability to take walks of 1-2 miles with minimal to no pain. LTG Duration 06/12/21 Assessment Summary Assessment Katy has minor swelling over scar and second digit today likely due to walking several miles in [place] yesterday. She has not tried ice massage or scar massage on herself at home. Encouraged pt to try both and added resisted PF, DF , IV, EV to HEP as well as PROM flexion of 2-3 digits. Physical Therapy Plan Frequency and Duration Frequency of Treatment 2x/Week Duration of Treatment 12 weeks Plan of Care Start Date 03/14/21 Plan of Care End Date 06/12/21 Therapeutic Interventions Therapeutic Interventions Aquatic Therapy,Gait Training, Home Exercise Program,Manual Therapy,Neuromuscular Re- education,Patient/Caregiver Education,Self-Care/Home Management,Soft Tissue Mobilization,Taping, Therapeutic Activities, Therapeutic Exercises Modalities Cold Pack/Ice Massage,Electric Stimulation,Hot Packs, Infrared Therapy,Iontophoresis Next Visit Focus/Plan Next Note Type Treatment Note Next Visit Plan Gentle ther ex progression as tolerated, with emphasis on closed chain ther ex, gait retraining to facilitate active toe push off. [ End ]
--- NOTE | 2021-04-30 17:30 | PT.OTN ---
Current Diagnoses Metatarsalgia, unspecified foot (04/30/21) Difficulty in walking, not elsewhere classified (04/30/21) Weakness (04/30/21) Edema, unspecified (04/30/21) Physical Therapy Treatment Note PT-OP-A Visit Information Start: 03/13/21 15:30 Freq: Status: Active Protocol: Document 04/30/21 09:48 SAK (Rec: 04/30/21 10:31 SAK [id number]) Out-Patient Physical Therapy Visit Information Visit Information Visit Type Treatment Note Visit Start Time 09:30 Visit Stop Time 10:15 Total Visit Minutes 45 Visit Number 7 Number of ACTIVITIES SPECIALIST Visits 2 Precautions Precautions toe pinning, no ultrasound over pins PT-OP-B Current Condition Start: 03/13/21 15:30 Freq: Status: Active Protocol: Document 03/14/21 08:15 SAK (Rec: 03/14/21 08:52 SAK [id number]) Current Condition History of Current Condition Onset Date September 2020 Current Complaints pain, swelling, decreased ROM. History of Current Condition Went to informatics scientist due to persistent burning in bottom of left foot starting September 2020 with no known cause, x- ray negative but had surgery 12/05/20 to shorten metatarsals 2-3 and reports 2 screws inserted. Reports worse pain after surgery; no burning bottom of foot, but disabling pain in surgical area. Also c /o 2 and third toes now overlapping, and don't touch the ground when standing, poor movement of toes, inability to tolerate usual activities including simple standing and walking. Surgeon advised patient PT wouldn't help and it would take at least a year to recover from surgery. Had second opinion with informatics scientist Dr. Mckenzie 2 weeks ago (02/26/21) prescribed 7 days of steroids and Gabapentin and patient has noted some improvement with medication, decreased warmth and redness and some decrease in pain and swelling, though no improvement in movement and pain can still be as high as 9/10 at times. Has appointment also scheduled with Dr. Carrasco 03/28/21 informatics scientist for another opinion . Prior Treatments and Tests Has used some ice, pain medication. Treatment Goals Patient/Caregiver Goals return to full active use of her left LE Prior Functional Status Baseline Function- ADL's Modified Independent Baseline Function- Gait independent, some burning pain left foot since September 2020 Current Functional Impairments (Reported) Functional Limitations- ADL's painful to stand, walk Functional Limitations- Mobility/Gait painful, antalgic at times Functional Limitations- Work/School retired Functional Limitations- Recreation/ unable to take daily walks as Hobbies previously Personal Factors Other Personal Factors That May Effect patient highly motivated Therapy/Recovery PT-OP-C Subjective Start: 03/13/21 15:30 Freq: Status: Active Protocol: Document 04/30/21 09:48 SAK (Rec: 04/30/21 10:31 SAK [id number]) OP-PT Subjective Patient Comments Patient Comments Feels massage work most helpful, toes moving better. Has stopped taking pain medication. Now able to walk her puppy. Can't actively move 2nd and 3rd toes away from eachother. States her doctor doesn't want her taped during the day. PT-OP-D Balance Start: 03/13/21 15:30 Freq: Status: Active Protocol: Document 03/14/21 08:15 SAK (Rec: 03/14/21 15:26 [facility] [id number]) OP-PT Balance Assessment Standing Balance Standing Balance Comments not assessed due to high pain level Read Fall Scale Copyright Permission PT-OP-F Manual Assessment Start: 03/13/21 15:30 Freq: Status: Active Protocol: Document 03/14/21 08:15 SAK (Rec: 03/14/21 15:26 SAK [id number]) Manual Assessments Soft Tissue Assessment Soft Tissue Mobility Assessment decreased soft tissue mobility of surgical scar between 2nd and 3rd metatarsals Joint Mobility Assessment Joint Mobility Assessment decreased mobility between 2nd and 3rd metatarsals, decreased inf glide MTP joints left 2nd and 3rd PT-OP-G Mobility & Gait Start: 03/13/21 15:30 Freq: Status: Active Protocol: Document 03/14/21 08:15 SAK (Rec: 03/14/21 15:26 [facility] [id number]) OP Gait Assessment Gait Gait Assistance Required: Independent Assistive Devices Assistive Device None Gait Deviations General Gait Pattern Antalgic Factors Limiting Gait Function Factors Limiting Gait Function Decreased Strength,Limited Range of Motion,Pain PT-OP-H Neuro Start: 03/13/21 15:30 Freq: Status: Active Protocol: Document 03/14/21 08:15 SAK (Rec: 03/14/21 15:26 SAK [id number]) Sensation Evaluation Gross Sensation Gross Sensation Left LE Impaired Sensation Description Hyperesthesia PT-OP-J Posture/Palpation/Skin Start: 03/13/21 15:30 Freq: Status: Active Protocol: Document 03/14/21 08:15 SAK (Rec: 03/14/21 15:26 [facility] [id number]) Posture Evaluation Position Standing Toe Posture (L) Extended Toes Comments Posture Comments 2nd and 3rd toes don't touch the ground in standing, no space between 2nd and 3rd toes Palpation Assessment Location One Palpation Location left foot Palpation Findings Soft Tissue Tightness, Tenderness Palpation Details increased warmth left foot, decreased scar mobility Skin Assessment Edema Assessment Left Foot Edema Type Non-Pitting Edema Degree 2+ Edema Appearance Discolored,Shiny,Taut Subjective Edema Description Tightness PT-OP-K Range of Motion Start: 03/13/21 15:30 Freq: Status: Active Protocol: Document 03/14/21 08:15 [facility] (Rec: 03/14/21 15:26 [facility] [id number]) Ankle and Foot Goniometric Range of Motion Ankle and Foot isabella Ankle/Foot ROM WFL Yes Toe Range of Motion Toe Left Toe ROM WFL No MTP Flexion Active (degrees) 0 MTP Flexion Passive (degrees) 5 MTP Extension Active (degrees) 5 MTP Extension Passive (degrees) 10 PIP Flexion Active (degrees) 0 PIP Flexion Passive (degrees) 3 PIP Extension Active (degrees) 0 PIP Extension Passive (degrees) 0 DIP Flexion Active (degrees) 0 DIP Flexion Passive (degrees) 3 DIP Extension Active (degrees) 0 DIP Extension Passive (degrees) 0 Comments 2nd and 3rd metatarsals PT-OP-M Strength Start: 03/13/21 15:30 Freq: Status: Active Protocol: Document 03/14/21 08:15 [facility] (Rec: 03/14/21 15:26 [facility] [id number]) Toe Strength Toe Manual Muscle Testing Left 3rd Toe Flexion 1 Trace Extension 1 Trace Left 2nd Toe Flexion 1 Trace Extension 1 Trace Left Great Toe Flexion 5 Normal Extension 5 Normal Right Flexion 5 Normal Extension 5 Normal PT-OP-Q Treatments Start: 03/13/21 15:30 Freq: Status: Active Protocol: Document 04/30/21 09:48 SAK (Rec: 04/30/21 10:31 SAK [id number]) Therapeutic Exercises Sitting Exercises piano toes Reps/Minutes 3 min toe flex Reps/Minutes 10x Comments gentle manual resistance foot inv/ev Equipment Used lvl 1 TB Reps/Minutes 10x ankle df/pf with toe ext/flex Equipment Used lvl 1 TB Reps/Minutes 10x Standing Exercises heel/toe raise Standing Exercise Name calf raises, emphasis on push off through toes Reps/Minutes 10x Comments PT manually assisting 2nd digit tandem stand Reps/Minutes 2 min Gait Training Gait Activity barefoot walking Description emphasis on full toe contact, push-off Device Used none Level of Assistance verbal cues Surface firm Distance/Duration 3 min Manual Therapy Treatment Soft Tissue Mobilization scar mobilization Body Location left foot Mobilization Type Instrument Assisted,Myofascial Release,Other Intensity/Depth Moderate Body Position Hooklying Manual Techniques Flex/ext Type PROM flex/ext of 2&3rd toes Body Position Sitting Reps/Duration 10x PT-OP-R Modalities Start: 03/13/21 15:30 Freq: Status: Active Protocol: Document 04/30/21 09:48 [facility] (Rec: 04/30/21 17:30 [facility] [id number]) Hot Pack/Cold Pack Treatment Ice Massage Location L scar Patient Position Sitting Treatment Duration (minutes) 3 Patient Tolerance Good PT-OP-T Assessment and Plan Start: 03/13/21 15:30 Freq: Status: Active Protocol: Document 04/30/21 09:48 SAK (Rec: 04/30/21 10:31 [facility] [id number]) Physical Therapy Assessment Goals Five Impairment poor scar mobility Group Home Goal (LTG) Improve scar mobility to WNL to allow for improved mobility of left foot and toes LTG Duration 06/12/21 Four Impairment antalgic gait Short Term Goal (STG) patient able to ambulate without limp on level surfaces without assistive device STG Duration 05/02/21 Art Director Goal (LTG) Patient will be able to ambulate on uneven surfaces including stairs with alternating step pattern with minimal to no pain. LTG Duration 06/12/21 Three Impairment weakness left 2nd and 3rd toes Group Home Goal (LTG) Improve strength left 2nd and 3rd toes to at least 4+/5 to allow for normalization of push-off phases of gait LTG Duration 06/12/21 Two Impairment limited ROM left 2nd and 3rd toes Short Term Goal (STG) Patient will improve left 2nd and 3rd toe flexion to allow her to be able to get 2nd and 3rd toes touching the ground in standing position. STG Duration 05/02/21 Group Home Goal (LTG) Improve left 2nd and 3rd toe flexion to WNL to allow for full functioning of left foot LTG Duration 06/12/21 One Impairment lower extremity functional scale 46% Short Term Goal (STG) Improve LEFS to at least 60% STG Duration 05/02/21 Art Director Goal (LTG) Improve LEFS to at least 75% including ability to take walks of 1-2 miles with minimal to no pain. LTG Duration 06/12/21 Assessment Summary Assessment Continued with manual techniques including use of suction and Graston tool for scar mobilization. Improving toe mobility, has difficulty with toes actively. Will discuss use of spacer, possible Yoga Toe type product at next session. Pain has lessened and patient thinking about cancelling injection. Physical Therapy Plan Frequency and Duration Frequency of Treatment 2x/Week Duration of Treatment 12 weeks Plan of Care Start Date 03/14/21 Plan of Care End Date 06/12/21 Therapeutic Interventions Therapeutic Interventions Aquatic Therapy,Gait Training, Home Exercise Program,Manual Therapy,Neuromuscular Re- education,Patient/Caregiver Education,Self-Care/Home Management,Soft Tissue Mobilization,Taping, Therapeutic Activities, Therapeutic Exercises Modalities Cold Pack/Ice Massage,Electric Stimulation,Hot Packs, Infrared Therapy,Iontophoresis Next Visit Focus/Plan Next Note Type Treatment Note Next Visit Plan Discuss toe spacer in addition to toe socks previously discussed. Gentle ther ex progression as tolerated, with emphasis on closed chain ther ex, gait retraining to facilitate active toe push off.
--- NOTE | 2021-05-08 14:07 | PT.OTN ---
Current Diagnoses Metatarsalgia, unspecified foot (05/08/21) Difficulty in walking, not elsewhere classified (05/08/21) Weakness (05/08/21) Edema, unspecified (05/08/21) Physical Therapy Treatment Note PT-OP-A Visit Information Start: 03/13/21 15:30 Freq: Status: Active Protocol: Document 05/08/21 09:47 SAK (Rec: 05/08/21 10:30 SAK [id number]) Out-Patient Physical Therapy Visit Information Visit Information Visit Type Treatment Note Visit Start Time 09:45 Visit Stop Time 10:30 Total Visit Minutes 45 Visit Number 9 Number of RETAIL SERVICE TECHNICIAN Visits 0 Precautions Precautions toe pinning, no ultrasound over pins PT-OP-B Current Condition Start: 03/13/21 15:30 Freq: Status: Active Protocol: Document 03/14/21 08:15 SAK (Rec: 03/14/21 08:52 SAK [id number]) Current Condition History of Current Condition Onset Date September 2020 Current Complaints pain, swelling, decreased ROM. History of Current Condition Went to [facility] due to persistent burning in bottom of left foot starting September 2020 with no known cause, x- ray negative but had surgery 12/05/20 to shorten metatarsals 2-3 and reports 2 screws inserted. Reports worse pain after surgery; no burning bottom of foot, but disabling pain in surgical area. Also c /o 2 and third toes now overlapping, and don't touch the ground when standing, poor movement of toes, inability to tolerate usual activities including simple standing and walking. Surgeon advised patient PT wouldn't help and it would take at least a year to recover from surgery. Had second opinion with [facility] Dr. Mckenzie 2 weeks ago (02/26/21) prescribed 7 days of steroids and Gabapentin and patient has noted some improvement with medication, decreased warmth and redness and some decrease in pain and swelling, though no improvement in movement and pain can still be as high as 9/10 at times. Has appointment also scheduled with Dr. Carrasco 03/28/21 [facility] for another opinion . Prior Treatments and Tests Has used some ice, pain medication. Treatment Goals Patient/Caregiver Goals return to full active use of her left LE Prior Functional Status Baseline Function- ADL's Modified Independent Baseline Function- Gait independent, some burning pain left foot since September 2020 Current Functional Impairments (Reported) Functional Limitations- ADL's painful to stand, walk Functional Limitations- Mobility/Gait painful, antalgic at times Functional Limitations- Work/School retired Functional Limitations- Recreation/ unable to take daily walks as Hobbies previously Personal Factors Other Personal Factors That May Effect patient highly motivated Therapy/Recovery PT-OP-C Subjective Start: 03/13/21 15:30 Freq: Status: Active Protocol: Document 05/08/21 09:47 SAK (Rec: 05/08/21 10:30 [facility] [id number]) OP-PT Subjective Patient Comments Patient Comments c/o right MTP pain, improved toe contact right. Can walk her dog longer without discomfort, has pain if I'm on my feet too long during the day. 85% better. PT-OP-D Balance Start: 03/13/21 15:30 Freq: Status: Active Protocol: Document 03/14/21 08:15 SAK (Rec: 03/14/21 15:26 [facility] [id number]) OP-PT Balance Assessment Standing Balance Standing Balance Comments not assessed due to high pain level Read Fall Scale Copyright Permission PT-OP-F Manual Assessment Start: 03/13/21 15:30 Freq: Status: Active Protocol: Document 03/14/21 08:15 SAK (Rec: 03/14/21 15:26 [facility] [id number]) Manual Assessments Soft Tissue Assessment Soft Tissue Mobility Assessment decreased soft tissue mobility of surgical scar between 2nd and 3rd metatarsals Joint Mobility Assessment Joint Mobility Assessment decreased mobility between 2nd and 3rd metatarsals, decreased inf glide MTP joints left 2nd and 3rd PT-OP-G Mobility & Gait Start: 03/13/21 15:30 Freq: Status: Active Protocol: Document 03/14/21 08:15 SAK (Rec: 03/14/21 15:26 [facility] [id number]) OP Gait Assessment Gait Gait Assistance Required: Independent Assistive Devices Assistive Device None Gait Deviations General Gait Pattern Antalgic Factors Limiting Gait Function Factors Limiting Gait Function Decreased Strength,Limited Range of Motion,Pain PT-OP-H Neuro Start: 03/13/21 15:30 Freq: Status: Active Protocol: Document 03/14/21 08:15 SAK (Rec: 03/14/21 15:26 [facility] [id number]) Sensation Evaluation Gross Sensation Gross Sensation Left LE Impaired Sensation Description Hyperesthesia PT-OP-J Posture/Palpation/Skin Start: 03/13/21 15:30 Freq: Status: Active Protocol: Document 03/14/21 08:15 [facility] (Rec: 03/14/21 15:26 [facility] [id number]) Posture Evaluation Position Standing Toe Posture (L) Extended Toes Comments Posture Comments 2nd and 3rd toes don't touch the ground in standing, no space between 2nd and 3rd toes Palpation Assessment Location One Palpation Location left foot Palpation Findings Soft Tissue Tightness, Tenderness Palpation Details increased warmth left foot, decreased scar mobility Skin Assessment Edema Assessment Left Foot Edema Type Non-Pitting Edema Degree 2+ Edema Appearance Discolored,Shiny,Taut Subjective Edema Description Tightness PT-OP-K Range of Motion Start: 03/13/21 15:30 Freq: Status: Active Protocol: Document 03/14/21 08:15 [facility] (Rec: 03/14/21 15:26 [facility] [id number]) Ankle and Foot Goniometric Range of Motion Ankle and Foot isabella Ankle/Foot ROM WFL Yes Toe Range of Motion Toe Left Toe ROM WFL No MTP Flexion Active (degrees) 0 MTP Flexion Passive (degrees) 5 MTP Extension Active (degrees) 5 MTP Extension Passive (degrees) 10 PIP Flexion Active (degrees) 0 PIP Flexion Passive (degrees) 3 PIP Extension Active (degrees) 0 PIP Extension Passive (degrees) 0 DIP Flexion Active (degrees) 0 DIP Flexion Passive (degrees) 3 DIP Extension Active (degrees) 0 DIP Extension Passive (degrees) 0 Comments 2nd and 3rd metatarsals PT-OP-M Strength Start: 03/13/21 15:30 Freq: Status: Active Protocol: Document 03/14/21 08:15 [facility] (Rec: 03/14/21 15:26 [facility] [id number]) Toe Strength Toe Manual Muscle Testing Left 3rd Toe Flexion 1 Trace Extension 1 Trace Left 2nd Toe Flexion 1 Trace Extension 1 Trace Left Great Toe Flexion 5 Normal Extension 5 Normal Right Flexion 5 Normal Extension 5 Normal PT-OP-Q Treatments Start: 03/13/21 15:30 Freq: Status: Active Protocol: Document 05/08/21 09:47 [facility] (Rec: 05/08/21 10:30 [facility] [id number]) Cardio Equipment Recumbent Elliptical (Biodex) Duration (Minutes) 8 Resistance 2 Other Focus on full toe contact on pedal, barefoot Gym Equipment Shuttle Balance chains red Details balance and wt shift Reps/Duration 5 min Comments CGA, min UE support. Therapeutic Exercises Sitting Exercises heel raise Reps/Minutes 10x Comments emphasis on full toe contact with active flexion toe flexion stretch Reps/Minutes 2x30 piano toes Reps/Minutes 3 min toe flex Reps/Minutes 10x Comments gentle manual resistance Standing Exercises heel/toe raise Standing Exercise Name calf raises, emphasis on push off through toes Reps/Minutes 5x Comments painful on left tandem stand Standing Exercise Name tandem stand and tandem walk Reps/Minutes 2 min Gait Training Gait Activity barefoot walking Description emphasis on full toe contact, push-off Device Used none Level of Assistance verbal cues Surface firm Distance/Duration 3 min Manual Therapy Treatment Soft Tissue Mobilization scar mobilization Body Location left foot Mobilization Type Instrument Assisted,Myofascial Release,Other Intensity/Depth Moderate Body Position Hooklying Manual Techniques Flex/ext Type PROM flex/ext of 2&3rd toes Body Position Sitting Reps/Duration 10x PT-OP-R Modalities Start: 03/13/21 15:30 Freq: Status: Active Protocol: Document 05/08/21 09:47 [facility] (Rec: 05/08/21 10:30 [facility] [id number]) Hot Pack/Cold Pack Treatment Ice Massage Location L scar Patient Position Sitting Treatment Duration (minutes) 3 Patient Tolerance Good PT-OP-T Assessment and Plan Start: 03/13/21 15:30 Freq: Status: Active Protocol: Document 05/08/21 09:47 [facility] (Rec: 05/08/21 10:30 [facility] [id number]) Physical Therapy Assessment Goals Five Impairment poor scar mobility Zigzag Elastic Attacher Goal (LTG) Improve scar mobility to WNL to allow for improved mobility of left foot and toes LTG Duration 06/12/21 Four Impairment antalgic gait Short Term Goal (STG) patient able to ambulate without limp on level surfaces without assistive device STG Duration 05/02/21 Fdc Goal (LTG) Patient will be able to ambulate on uneven surfaces including stairs with alternating step pattern with minimal to no pain. LTG Duration 06/12/21 Three Impairment weakness left 2nd and 3rd toes Fdc Goal (LTG) Improve strength left 2nd and 3rd toes to at least 4+/5 to allow for normalization of push-off phases of gait LTG Duration 06/12/21 Two Impairment limited ROM left 2nd and 3rd toes Short Term Goal (STG) Patient will improve left 2nd and 3rd toe flexion to allow her to be able to get 2nd and 3rd toes touching the ground in standing position. STG Duration 05/02/21 Fdc Goal (LTG) Improve left 2nd and 3rd toe flexion to WNL to allow for full functioning of left foot LTG Duration 06/12/21 One Impairment lower extremity functional scale 46% Short Term Goal (STG) Improve LEFS to at least 60% STG Duration 05/02/21 Zigzag Elastic Attacher Goal (LTG) Improve LEFS to at least 75% including ability to take walks of 1-2 miles with minimal to no pain. LTG Duration 06/12/21 Progress Towards Goals Progress Towards Goals Progressing Toward Goals Assessment Summary Assessment continues to improve with active toe flexion, ability to contact ground 50% of time with standing bal, gait. Has ordered spacer for between 2nd and third toes. Physical Therapy Plan Frequency and Duration Frequency of Treatment 2x/Week Duration of Treatment 12 weeks Plan of Care Start Date 03/14/21 Plan of Care End Date 06/12/21 Therapeutic Interventions Therapeutic Interventions Aquatic Therapy,Gait Training, Home Exercise Program,Manual Therapy,Neuromuscular Re- education,Patient/Caregiver Education,Self-Care/Home Management,Soft Tissue Mobilization,Taping, Therapeutic Activities, Therapeutic Exercises Modalities Cold Pack/Ice Massage,Electric Stimulation,Hot Packs, Infrared Therapy,Iontophoresis Next Visit Focus/Plan Next Note Type Treatment Note Next Visit Plan Continue gentle ther ex progression as tolerated, with emphasis on closed chain ther ex, gait retraining to facilitate active toe push off . Manual therapy for scar mobility and toe mobility
--- NOTE | 2021-05-14 08:22 | PT.OTN ---
Current Diagnoses Metatarsalgia, unspecified foot (05/14/21) Difficulty in walking, not elsewhere classified (05/14/21) Weakness (05/14/21) Edema, unspecified (05/14/21) Physical Therapy Treatment Note PT-OP-A Visit Information Start: 03/13/21 15:30 Freq: Status: Active Protocol: Document 05/14/21 08:14 [facility] (Rec: 05/14/21 09:02 SAK [id number]) Out-Patient Physical Therapy Visit Information Visit Information Visit Type Treatment Note Visit Start Time 08:15 Visit Stop Time 09:00 Total Visit Minutes 45 Visit Number 10 Number of SHUTTLE OPERATOR Visits 0 Precautions Precautions toe pinning, no ultrasound over pins PT-OP-B Current Condition Start: 03/13/21 15:30 Freq: Status: Active Protocol: Document 03/14/21 08:15 SAK (Rec: 03/14/21 08:52 SAK [id number]) Current Condition History of Current Condition Onset Date September 2020 Current Complaints pain, swelling, decreased ROM. History of Current Condition Went to [facility] due to persistent burning in bottom of left foot starting September 2020 with no known cause, x- ray negative but had surgery 12/05/20 to shorten metatarsals 2-3 and reports 2 screws inserted. Reports worse pain after surgery; no burning bottom of foot, but disabling pain in surgical area. Also c /o 2 and third toes now overlapping, and don't touch the ground when standing, poor movement of toes, inability to tolerate usual activities including simple standing and walking. Surgeon advised patient PT wouldn't help and it would take at least a year to recover from surgery. Had second opinion with [employer] Dr. Mckenzie 2 weeks ago (02/26/21) prescribed 7 days of steroids and Gabapentin and patient has noted some improvement with medication, decreased warmth and redness and some decrease in pain and swelling, though no improvement in movement and pain can still be as high as 9/10 at times. Has appointment also scheduled with Dr. Carrasco 03/28/21 [facility] for another opinion . Prior Treatments and Tests Has used some ice, pain medication. Treatment Goals Patient/Caregiver Goals return to full active use of her left LE Prior Functional Status Baseline Function- ADL's Modified Independent Baseline Function- Gait independent, some burning pain left foot since September 2020 Current Functional Impairments (Reported) Functional Limitations- ADL's painful to stand, walk Functional Limitations- Mobility/Gait painful, antalgic at times Functional Limitations- Work/School retired Functional Limitations- Recreation/ unable to take daily walks as Hobbies previously Personal Factors Other Personal Factors That May Effect patient highly motivated Therapy/Recovery PT-OP-C Subjective Start: 03/13/21 15:30 Freq: Status: Active Protocol: Document 05/14/21 08:14 SAK (Rec: 05/14/21 09:02 [facility] [id number]) OP-PT Subjective Patient Comments Patient Comments Improving. No pain with walking, but hasn't walked long distance. Able to garden 5 hrs each day over weekend. PT-OP-D Balance Start: 03/13/21 15:30 Freq: Status: Active Protocol: Document 03/14/21 08:15 SAK (Rec: 03/14/21 15:26 [facility] [id number]) OP-PT Balance Assessment Standing Balance Standing Balance Comments not assessed due to high pain level Read Fall Scale Copyright Permission PT-OP-F Manual Assessment Start: 03/13/21 15:30 Freq: Status: Active Protocol: Document 03/14/21 08:15 SAK (Rec: 03/14/21 15:26 [facility] [id number]) Manual Assessments Soft Tissue Assessment Soft Tissue Mobility Assessment decreased soft tissue mobility of surgical scar between 2nd and 3rd metatarsals Joint Mobility Assessment Joint Mobility Assessment decreased mobility between 2nd and 3rd metatarsals, decreased inf glide MTP joints left 2nd and 3rd PT-OP-G Mobility & Gait Start: 03/13/21 15:30 Freq: Status: Active Protocol: Document 03/14/21 08:15 SAK (Rec: 03/14/21 15:26 [facility] [id number]) OP Gait Assessment Gait Gait Assistance Required: Independent Assistive Devices Assistive Device None Gait Deviations General Gait Pattern Antalgic Factors Limiting Gait Function Factors Limiting Gait Function Decreased Strength,Limited Range of Motion,Pain PT-OP-H Neuro Start: 03/13/21 15:30 Freq: Status: Active Protocol: Document 03/14/21 08:15 SAK (Rec: 03/14/21 15:26 [facility] [id number]) Sensation Evaluation Gross Sensation Gross Sensation Left LE Impaired Sensation Description Hyperesthesia PT-OP-J Posture/Palpation/Skin Start: 03/13/21 15:30 Freq: Status: Active Protocol: Document 03/14/21 08:15 [facility] (Rec: 03/14/21 15:26 [facility] [id number]) Posture Evaluation Position Standing Toe Posture (L) Extended Toes Comments Posture Comments 2nd and 3rd toes don't touch the ground in standing, no space between 2nd and 3rd toes Palpation Assessment Location One Palpation Location left foot Palpation Findings Soft Tissue Tightness, Tenderness Palpation Details increased warmth left foot, decreased scar mobility Skin Assessment Edema Assessment Left Foot Edema Type Non-Pitting Edema Degree 2+ Edema Appearance Discolored,Shiny,Taut Subjective Edema Description Tightness PT-OP-K Range of Motion Start: 03/13/21 15:30 Freq: Status: Active Protocol: Document 03/14/21 08:15 [facility] (Rec: 03/14/21 15:26 [facility] [id number]) Ankle and Foot Goniometric Range of Motion Ankle and Foot isabella Ankle/Foot ROM WFL Yes Toe Range of Motion Toe Left Toe ROM WFL No MTP Flexion Active (degrees) 0 MTP Flexion Passive (degrees) 5 MTP Extension Active (degrees) 5 MTP Extension Passive (degrees) 10 PIP Flexion Active (degrees) 0 PIP Flexion Passive (degrees) 3 PIP Extension Active (degrees) 0 PIP Extension Passive (degrees) 0 DIP Flexion Active (degrees) 0 DIP Flexion Passive (degrees) 3 DIP Extension Active (degrees) 0 DIP Extension Passive (degrees) 0 Comments 2nd and 3rd metatarsals PT-OP-M Strength Start: 03/13/21 15:30 Freq: Status: Active Protocol: Document 03/14/21 08:15 [facility] (Rec: 03/14/21 15:26 [facility] [id number]) Toe Strength Toe Manual Muscle Testing Left 3rd Toe Flexion 1 Trace Extension 1 Trace Left 2nd Toe Flexion 1 Trace Extension 1 Trace Left Great Toe Flexion 5 Normal Extension 5 Normal Right Flexion 5 Normal Extension 5 Normal PT-OP-Q Treatments Start: 03/13/21 15:30 Freq: Status: Active Protocol: Document 05/14/21 08:14 [facility] (Rec: 05/14/21 09:02 [facility] [id number]) Cardio Equipment Recumbent Elliptical (Biodex) Duration (Minutes) 10 Resistance 3 Other Focus on full toe contact on pedal, barefoot Gym Equipment Shuttle Balance chains red Details balance and wt shift Reps/Duration 5 min Comments CGA, min UE support. Therapeutic Exercises Sitting Exercises heel raise Reps/Minutes 10x Comments emphasis on full toe contact with active flexion toe flexion stretch Reps/Minutes 2x30 piano toes Reps/Minutes 3 min toe flex Reps/Minutes 10x Comments gentle manual resistance foot inv/ev Equipment Used lvl 1 TB Reps/Minutes 10x ankle df/pf with toe ext/flex Equipment Used lvl 1 TB Reps/Minutes 10x Standing Exercises heel/toe raise Standing Exercise Name calf raises, emphasis on push off through toes Reps/Minutes 5x Comments painful on left tandem stand Standing Exercise Name tandem stand and tandem walk Reps/Minutes 2 min Gait Training Gait Activity barefoot walking Description emphasis on full toe contact, push-off Device Used none Level of Assistance verbal cues Surface firm Distance/Duration 3 min Manual Therapy Treatment Soft Tissue Mobilization scar mobilization Body Location left foot Mobilization Type Instrument Assisted,Myofascial Release,Other Intensity/Depth Moderate Body Position Hooklying Manual Techniques Flex/ext Type PROM flex/ext of 2&3rd toes Body Position Sitting Reps/Duration 10x Self-Care/Home Management Treatment Education Patient Education Home Exercise Program,Pain Management PT-OP-R Modalities Start: 03/13/21 15:30 Freq: Status: Active Protocol: Document 05/14/21 08:14 [facility] (Rec: 05/14/21 09:02 [facility] [id number]) Hot Pack/Cold Pack Treatment Ice Massage Location L scar Patient Position Sitting Treatment Duration (minutes) 3 Patient Tolerance Good PT-OP-T Assessment and Plan Start: 03/13/21 15:30 Freq: Status: Active Protocol: Document 05/14/21 08:14 [facility] (Rec: 05/14/21 09:02 [facility] [id number]) Physical Therapy Assessment Goals Five Impairment poor scar mobility Jail Goal (LTG) Improve scar mobility to WNL to allow for improved mobility of left foot and toes 05/14/21: good goal progress LTG Duration 06/12/21 Four Impairment antalgic gait Short Term Goal (STG) patient able to ambulate without limp on level surfaces without assistive device STG Duration goal met Jail Goal (LTG) Patient will be able to ambulate on uneven surfaces including stairs with alternating step pattern with minimal to no pain. LTG Duration 06/12/21 Three Impairment weakness left 2nd and 3rd toes Jail Goal (LTG) Improve strength left 2nd and 3rd toes to at least 4+/5 to allow for normalization of push-off phases of gait 05/14/21: good goal progress LTG Duration 06/12/21 Two Impairment limited ROM left 2nd and 3rd toes Short Term Goal (STG) Patient will improve left 2nd and 3rd toe flexion to allow her to be able to get 2nd and 3rd toes touching the ground in standing position. 05/14/21: goal met, though second toe unable to abduct away from third toe STG Duration goal met Jail Goal (LTG) Improve left 2nd and 3rd toe flexion to WNL to allow for full functioning of left foot 05/14/21: good goal progress LTG Duration 06/12/21 One Impairment lower extremity functional scale 46% Short Term Goal (STG) Improve LEFS to at least 60% 05/14/21: improved to 60%, goal met STG Duration goal met Jail Goal (LTG) Improve LEFS to at least 75% including ability to take walks of 1-2 miles with minimal to no pain. LTG Duration 06/12/21 Progress Towards Goals Progress Towards Goals Progressing Toward Goals Assessment Summary Assessment Patient making good progress toward goals. Most difficulty with 2nd toe flexion strength (3-/5), and lack of ability to abduct 2nd toe away from third; patient trying use of spacer. To see surgeon soon for check-up x-ray. Will benefit from continued skilled PT to help her fully achieve her goals. Physical Therapy Plan Frequency and Duration Frequency of Treatment 2x/Week Duration of Treatment 12 weeks Plan of Care Start Date 03/14/21 Plan of Care End Date 06/12/21 Therapeutic Interventions Therapeutic Interventions Aquatic Therapy,Gait Training, Home Exercise Program,Manual Therapy,Neuromuscular Re- education,Patient/Caregiver Education,Self-Care/Home Management,Soft Tissue Mobilization,Taping, Therapeutic Activities, Therapeutic Exercises Modalities Cold Pack/Ice Massage,Electric Stimulation,Hot Packs, Infrared Therapy,Iontophoresis Next Visit Focus/Plan Next Note Type Treatment Note Next Visit Plan Continue gentle ther ex progression as tolerated, with emphasis on closed chain ther ex, gait retraining to facilitate active toe push off . Manual therapy for scar mobility and toe mobility
--- NOTE | 2021-05-16 10:04 | PT.OTN ---
Current Diagnoses Metatarsalgia, unspecified foot (05/16/21) Difficulty in walking, not elsewhere classified (05/16/21) Weakness (05/16/21) Edema, unspecified (05/16/21) Physical Therapy Treatment Note PT-OP-A Visit Information Start: 03/13/21 15:30 Freq: Status: Active Protocol: Document 05/16/21 08:17 [facility] (Rec: 05/16/21 09:01 [facility] [id number]) Out-Patient Physical Therapy Visit Information Visit Information Visit Type Treatment Note Visit Start Time 08:15 Visit Stop Time 09:00 Total Visit Minutes 45 Visit Number 10 Number of BATH MIX OPERATOR Visits 0 Precautions Precautions toe pinning, no ultrasound over pins PT-OP-B Current Condition Start: 03/13/21 15:30 Freq: Status: Active Protocol: Document 03/14/21 08:15 [facility] (Rec: 03/14/21 08:52 [facility] [id number]) Current Condition History of Current Condition Onset Date September 2020 Current Complaints pain, swelling, decreased ROM. History of Current Condition Went to [facility] due to persistent burning in bottom of left foot starting September 2020 with no known cause, x- ray negative but had surgery 12/05/20 to shorten metatarsals 2-3 and reports 2 screws inserted. Reports worse pain after surgery; no burning bottom of foot, but disabling pain in surgical area. Also c /o 2 and third toes now overlapping, and don't touch the ground when standing, poor movement of toes, inability to tolerate usual activities including simple standing and walking. Surgeon advised patient PT wouldn't help and it would take at least a year to recover from surgery. Had second opinion with cashier wrapper Dr. Mckenzie 2 weeks ago (02/26/21) prescribed 7 days of steroids and Gabapentin and patient has noted some improvement with medication, decreased warmth and redness and some decrease in pain and swelling, though no improvement in movement and pain can still be as high as 9/10 at times. Has appointment also scheduled with Dr. Carrasco 03/28/21 cashier [facility] for another opinion . Prior Treatments and Tests Has used some ice, pain medication. Treatment Goals Patient/Caregiver Goals return to full active use of her left LE Prior Functional Status Baseline Function- ADL's Modified Independent Baseline Function- Gait independent, some burning pain left foot since September 2020 Current Functional Impairments (Reported) Functional Limitations- ADL's painful to stand, walk Functional Limitations- Mobility/Gait painful, antalgic at times Functional Limitations- Work/School retired Functional Limitations- Recreation/ unable to take daily walks as Hobbies previously Personal Factors Other Personal Factors That May Effect patient highly motivated Therapy/Recovery PT-OP-C Subjective Start: 03/13/21 15:30 Freq: Status: Active Protocol: Document 05/16/21 08:17 [facility] (Rec: 05/16/21 09:01 [facility] [id number]) OP-PT Subjective Patient Comments Patient Comments No new c/o. PT-OP-D Balance Start: 03/13/21 15:30 Freq: Status: Active Protocol: Document 03/14/21 08:15 [facility] (Rec: 03/14/21 15:26 [facility] [id number]) OP-PT Balance Assessment Standing Balance Standing Balance Comments not assessed due to high pain level Read Fall Scale Copyright Permission PT-OP-F Manual Assessment Start: 03/13/21 15:30 Freq: Status: Active Protocol: Document 03/14/21 08:15 [facility] (Rec: 03/14/21 15:26 [facility] [id number]) Manual Assessments Soft Tissue Assessment Soft Tissue Mobility Assessment decreased soft tissue mobility of surgical scar between 2nd and 3rd metatarsals Joint Mobility Assessment Joint Mobility Assessment decreased mobility between 2nd and 3rd metatarsals, decreased inf glide MTP joints left 2nd and 3rd PT-OP-G Mobility & Gait Start: 03/13/21 15:30 Freq: Status: Active Protocol: Document 03/14/21 08:15 [facility] (Rec: 03/14/21 15:26 [facility] [id number]) OP Gait Assessment Gait Gait Assistance Required: Independent Assistive Devices Assistive Device None Gait Deviations General Gait Pattern Antalgic Factors Limiting Gait Function Factors Limiting Gait Function Decreased Strength,Limited Range of Motion,Pain PT-OP-H Neuro Start: 03/13/21 15:30 Freq: Status: Active Protocol: Document 03/14/21 08:15 [facility] (Rec: 03/14/21 15:26 [facility] [id number]) Sensation Evaluation Gross Sensation Gross Sensation Left LE Impaired Sensation Description Hyperesthesia PT-OP-J Posture/Palpation/Skin Start: 03/13/21 15:30 Freq: Status: Active Protocol: Document 03/14/21 08:15 [facility] (Rec: 07/14/21 15:26 [facility] [id number]) Posture Evaluation Position Standing Toe Posture (L) Extended Toes Comments Posture Comments 2nd and 3rd toes don't touch the ground in standing, no space between 2nd and 3rd toes Palpation Assessment Location One Palpation Location left foot Palpation Findings Soft Tissue Tightness, Tenderness Palpation Details increased warmth left foot, decreased scar mobility Skin Assessment Edema Assessment Left Foot Edema Type Non-Pitting Edema Degree 2+ Edema Appearance Discolored,Shiny,Taut Subjective Edema Description Tightness PT-OP-K Range of Motion Start: 03/13/21 15:30 Freq: Status: Active Protocol: Document 03/14/21 08:15 [facility] (Rec: 03/14/21 15:26 [facility] [id number]) Ankle and Foot Goniometric Range of Motion Ankle and Foot isabella Ankle/Foot ROM WFL Yes Toe Range of Motion Toe Left Toe ROM WFL No MTP Flexion Active (degrees) 0 MTP Flexion Passive (degrees) 5 MTP Extension Active (degrees) 5 MTP Extension Passive (degrees) 10 PIP Flexion Active (degrees) 0 PIP Flexion Passive (degrees) 3 PIP Extension Active (degrees) 0 PIP Extension Passive (degrees) 0 DIP Flexion Active (degrees) 0 DIP Flexion Passive (degrees) 3 DIP Extension Active (degrees) 0 DIP Extension Passive (degrees) 0 Comments 2nd and 3rd metatarsals PT-OP-M Strength Start: 03/13/21 15:30 Freq: Status: Active Protocol: Document 03/14/21 08:15 [facility] (Rec: 03/14/21 15:26 [facility] [id number]) Toe Strength Toe Manual Muscle Testing Left 3rd Toe Flexion 1 Trace Extension 1 Trace Left 2nd Toe Flexion 1 Trace Extension 1 Trace Left Great Toe Flexion 5 Normal Extension 5 Normal Right Flexion 5 Normal Extension 5 Normal PT-OP-Q Treatments Start: 03/13/21 15:30 Freq: Status: Active Protocol: Document 05/16/21 08:17 [facility] (Rec: 05/16/21 09:01 [facility] [id number]) Cardio Equipment Recumbent Elliptical (Biodex) Duration (Minutes) 10 Resistance 2-3 Other Focus on full toe contact on pedal, barefoot Therapeutic Exercises Sitting Exercises toe extension stretch Reps/Minutes 2x30 toe flexion stretch Reps/Minutes 2x30 toe flex Equipment Used L1 tb Reps/Minutes 10x Standing Exercises BOSU balance Reps/Minutes 2 min Comments cues for full toe contact, round side up Bosu lunge Reps/Minutes 10x heel/toe raise Standing Exercise Name calf raises, emphasis on push off through toes Reps/Minutes 10x Comments small lift (pain-free ROM) with cues for full toe contact tandem stand Standing Exercise Name tandem stand and tandem walk Reps/Minutes 2 min Gait Training Gait Activity barefoot walking Description emphasis on full toe contact, push-off Device Used none Level of Assistance verbal cues Surface firm Distance/Duration 3 min Manual Therapy Treatment Soft Tissue Mobilization scar mobilization Body Location left foot Mobilization Type Instrument Assisted,Myofascial Release,Other Intensity/Depth Moderate Body Position Hooklying Manual Techniques Flex/ext Type PROM flex/ext of 2&3rd toes Body Position Sitting Reps/Duration 10x Self-Care/Home Management Treatment Education Patient Education Home Exercise Program,Pain Management PT-OP-R Modalities Start: 03/13/21 15:30 Freq: Status: Active Protocol: Document 05/16/21 08:17 [facility] (Rec: 05/16/21 09:01 [facility] [id number]) Hot Pack/Cold Pack Treatment Ice Massage Location L scar Patient Position Sitting Treatment Duration (minutes) 3 Patient Tolerance Good PT-OP-T Assessment and Plan Start: 03/13/21 15:30 Freq: Status: Active Protocol: Document 05/16/21 08:17 [facility] (Rec: 05/16/21 09:01 [facility] [id number]) Physical Therapy Assessment Goals Five Impairment poor scar mobility Group Leader Wafer Polishing Goal (LTG) Improve scar mobility to WNL to allow for improved mobility of left foot and toes 05/14/21: good goal progress LTG Duration 06/12/21 Four Impairment antalgic gait Short Term Goal (STG) patient able to ambulate without limp on level surfaces without assistive device STG Duration goal met Fpc Goal (LTG) Patient will be able to ambulate on uneven surfaces including stairs with alternating step pattern with minimal to no pain. LTG Duration 06/12/21 Three Impairment weakness left 2nd and 3rd toes Group Leader Wafer Polishing Goal (LTG) Improve strength left 2nd and 3rd toes to at least 4+/5 to allow for normalization of push-off phases of gait 05/14/21: good goal progress LTG Duration 06/12/21 Two Impairment limited ROM left 2nd and 3rd toes Short Term Goal (STG) Patient will improve left 2nd and 3rd toe flexion to allow her to be able to get 2nd and 3rd toes touching the ground in standing position. 05/14/21: goal met, though second toe unable to abduct away from third toe STG Duration goal met Fpc Goal (LTG) Improve left 2nd and 3rd toe flexion to WNL to allow for full functioning of left foot 05/14/21: good goal progress LTG Duration 06/12/21 One Impairment lower extremity functional scale 46% Short Term Goal (STG) Improve LEFS to at least 60% 05/14/21: improved to 60%, goal met STG Duration goal met Fpc Goal (LTG) Improve LEFS to at least 75% including ability to take walks of 1-2 miles with minimal to no pain. LTG Duration 06/12/21 Progress Towards Goals Progress Towards Goals Progressing Toward Goals Assessment Summary Assessment Patient making good progress toward goals. Most difficulty with 2nd toe flexion strength (3-/5), and lack of ability to abduct 2nd toe away from third; patient trying use of spacer. To see surgeon soon for check-up x-ray. Will benefit from continued skilled PT to help her fully achieve her goals. Physical Therapy Plan Frequency and Duration Frequency of Treatment 2x/Week Duration of Treatment 12 weeks Plan of Care Start Date 03/14/21 Plan of Care End Date 06/12/21 Therapeutic Interventions Therapeutic Interventions Aquatic Therapy,Gait Training, Home Exercise Program,Manual Therapy,Neuromuscular Re- education,Patient/Caregiver Education,Self-Care/Home Management,Soft Tissue Mobilization,Taping, Therapeutic Activities, Therapeutic Exercises Modalities Cold Pack/Ice Massage,Electric Stimulation,Hot Packs, Infrared Therapy,Iontophoresis Next Visit Focus/Plan Next Note Type Treatment Note Next Visit Plan Progression of closed chain functional exercises as tolerated, continue with toe ROM and strengthening, scar mobilization.
--- NOTE | 2021-05-28 09:30 | PT-OP ANOTE ---
Pt no showed appt, called and left voicemail reminding her of next scheduled.
--- NOTE | 2022-08-22 11:39 | PT.OPDS ---
Current Diagnoses Metatarsalgia, unspecified foot (05/16/21) Difficulty in walking, not elsewhere classified (05/16/21) Weakness (05/16/21) Edema, unspecified (05/16/21) Visit Care Team Role Provider Type Juan J Cortez MD Primary Care Provider Physician Specialty: Family Practice Address: [address] [place] [address], [id number] Email: [email or web address] Attending Provider Referring Provider Specialty: Address: Phone: Fax: Email: Visit Number Visit Number 10 Discharge Summary PT-OP-B Current Condition Start: 03/13/21 15:30 Freq: Status: Active Protocol: Document 03/14/21 08:15 SAK (Rec: 03/14/21 08:52 SAK [id number]) Current Condition History of Current Condition Onset Date September 2020 Current Complaints pain, swelling, decreased ROM. History of Current Condition Went to [facility] due to persistent burning in bottom of left foot starting September 2020 with no known cause, x- ray negative but had surgery 12/05/20 to shorten metatarsals 2-3 and reports 2 screws inserted. Reports worse pain after surgery; no burning bottom of foot, but disabling pain in surgical area. Also c /o 2 and third toes now overlapping, and don't touch the ground when standing, poor movement of toes, inability to tolerate usual activities including simple standing and walking. Surgeon advised patient PT wouldn't help and it would take at least a year to recover from surgery. Had second opinion with [facility] Dr. Mckenzie 2 weeks ago (02/26/21) prescribed 7 days of steroids and Gabapentin and patient has noted some improvement with medication, decreased warmth and redness and some decrease in pain and swelling, though no improvement in movement and pain can still be as high as 9/10 at times. Has appointment also scheduled with Dr. Carrasco 03/28/21 [facility] for another opinion . Prior Treatments and Tests Has used some ice, pain medication. Treatment Goals Patient/Caregiver Goals return to full active use of her left LE Prior Functional Status Baseline Function- ADL's Modified Independent Baseline Function- Gait independent, some burning pain left foot since September 2020 Current Functional Impairments (Reported) Functional Limitations- ADL's painful to stand, walk Functional Limitations- Mobility/Gait painful, antalgic at times Functional Limitations- Work/School retired Functional Limitations- Recreation/ unable to take daily walks as Hobbies previously Personal Factors Other Personal Factors That May Effect patient highly motivated Therapy/Recovery PT-OP-C Subjective Start: 03/13/21 15:30 Freq: Status: Active Protocol: Document 05/16/21 08:17 SAK (Rec: 05/16/21 09:01 [facility] [id number]) OP-PT Subjective Patient Comments Patient Comments No new c/o. PT-OP-D Balance Start: 03/13/21 15:30 Freq: Status: Active Protocol: Document 03/14/21 08:15 SAK (Rec: 03/14/21 15:26 [facility] [id number]) OP-PT Balance Assessment Standing Balance Standing Balance Comments not assessed due to high pain level Read Fall Scale Copyright Permission PT-OP-F Manual Assessment Start: 03/13/21 15:30 Freq: Status: Active Protocol: Document 03/14/21 08:15 SAK (Rec: 03/14/21 15:26 [facility] [id number]) Manual Assessments Soft Tissue Assessment Soft Tissue Mobility Assessment decreased soft tissue mobility of surgical scar between 2nd and 3rd metatarsals Joint Mobility Assessment Joint Mobility Assessment decreased mobility between 2nd and 3rd metatarsals, decreased inf glide MTP joints left 2nd and 3rd PT-OP-G Mobility & Gait Start: 03/13/21 15:30 Freq: Status: Active Protocol: Document 03/14/21 08:15 SAK (Rec: 03/14/21 15:26 [facility] [id number]) OP Gait Assessment Gait Gait Assistance Required: Independent Assistive Devices Assistive Device None Gait Deviations General Gait Pattern Antalgic Factors Limiting Gait Function Factors Limiting Gait Function Decreased Strength,Limited Range of Motion,Pain PT-OP-H Neuro Start: 03/13/21 15:30 Freq: Status: Active Protocol: Document 03/14/21 08:15 SAK (Rec: 03/14/21 15:26 [facility] [id number]) Sensation Evaluation Gross Sensation Gross Sensation Left LE Impaired Sensation Description Hyperesthesia PT-OP-J Posture/Palpation/Skin Start: 03/13/21 15:30 Freq: Status: Active Protocol: Document 03/14/21 08:15 SAK (Rec: 03/14/21 15:26 [facility] [id number]) Posture Evaluation Position Standing Toe Posture (L) Extended Toes Comments Posture Comments 2nd and 3rd toes don't touch the ground in standing, no space between 2nd and 3rd toes Palpation Assessment Location One Palpation Location left foot Palpation Findings Soft Tissue Tightness, Tenderness Palpation Details increased warmth left foot, decreased scar mobility Skin Assessment Edema Assessment Left Foot Edema Type Non-Pitting Edema Degree 2+ Edema Appearance Discolored,Shiny,Taut Subjective Edema Description Tightness PT-OP-K Range of Motion Start: 03/13/21 15:30 Freq: Status: Active Protocol: Document 03/14/21 08:15 [facility] (Rec: 03/14/21 15:26 [facility] [id number]) Ankle and Foot Goniometric Range of Motion Ankle and Foot isabella Ankle/Foot ROM WFL Yes Toe Range of Motion Toe Left Toe ROM WFL No MTP Flexion Active (degrees) 0 MTP Flexion Passive (degrees) 5 MTP Extension Active (degrees) 5 MTP Extension Passive (degrees) 10 PIP Flexion Active (degrees) 0 PIP Flexion Passive (degrees) 3 PIP Extension Active (degrees) 0 PIP Extension Passive (degrees) 0 DIP Flexion Active (degrees) 0 DIP Flexion Passive (degrees) 3 DIP Extension Active (degrees) 0 DIP Extension Passive (degrees) 0 Comments 2nd and 3rd metatarsals PT-OP-M Strength Start: 03/13/21 15:30 Freq: Status: Active Protocol: Document 03/14/21 08:15 [facility] (Rec: 03/14/21 15:26 [facility] [id number]) Toe Strength Toe Manual Muscle Testing Left 3rd Toe Flexion 1 Trace Extension 1 Trace Left 2nd Toe Flexion 1 Trace Extension 1 Trace Left Great Toe Flexion 5 Normal Extension 5 Normal Right Flexion 5 Normal Extension 5 Normal PT-OP-T Assessment and Plan Start: 03/13/21 15:30 Freq: Status: Active Protocol: Document 08/22/22 11:39 [facility] (Rec: 08/22/22 11:39 [facility] [id number]) Physical Therapy Plan Discharge Physical Therapy Discharge Reasons No Longer Attending PT
== END | disposition home or self-care (01) ==
LOC: PHYS 03-14 08:08
PROVIDERS: PCP Family Medicine
DX: M77.40 Metatarsalgia, unspecified foot (principal); R26.2 Difficulty in walking, not elsewhere classified; R60.9 Edema, unspecified; R53.1 Weakness
CPT/HCPCS: 97110; 97112; 97116; 97140; 97162; 97535

== ENCOUNTER → 2022-09-21 08:31 | Outpatient (CLI) | payer MEDICARE, OTHER, SELFPAY ==
[2022-09-21 10:33] LABS: Cholesterol 183 mg/dL (140-199); HDL Cholesterol 73 mg/dL (40-60); LDL Cholesterol Calculated 91 mg/dL (<100); Triglycerides 94 mg/dL (35-150)
== END ==
PROVIDERS: PCP Family Medicine; Referring Provider Family Medicine; Visit Provider Family Medicine
DX: E78.2 Mixed hyperlipidemia (principal)
CPT/HCPCS: 36415; 80061

== ENCOUNTER → 2022-09-24 12:10 | Outpatient (CLI) | payer MEDICARE, OTHER, SELFPAY ==
--- NOTE | 2022-09-24 12:11 | DI.RAD.S_ITS ---
PROCEDURE: XR HAND LT MIN 3V INDICATIONS: left hand pain TECHNIQUE: 3 views of the hand(s) acquired. COMPARISON: None. FINDINGS: Bones: No fractures or dislocations. Carpal bones are normally aligned. No suspicious bony lesions. Polyarticular osteoarthritic degenerative changes noted. Soft tissues: No suspicious soft tissue calcifications. IMPRESSION: Osteoarthritis. Dictated by: Zuly Mccabe MD, PhD on 09/24/2022 at 13:25 Approved by: Zuly Mccabe MD, PhD on 09/24/2022 at 13:26
== END ==
PROVIDERS: PCP Family Medicine; Referring Provider Anesthesiology; Visit Provider Anesthesiology
DX: M19.042 Primary osteoarthritis, left hand (principal); M70.61 Trochanteric bursitis, right hip
CPT/HCPCS: 73130; 99213

== ENCOUNTER → 2022-10-16 08:24 | Outpatient (CLI) | payer MEDICARE, OTHER, SELFPAY ==
[2022-10-16 09:27] LABS: Influenza A - CEPHEID Flu A NEGATIVE (NEGATIVE); Influenza B - CEPHEID Flu B NEGATIVE (NEGATIVE); Respiratory Syncytial Virus Negative (Negative)
[2022-10-16 09:31] LABS: COVID-19 CEPHEID 4-PLEX PCR POSITIVE (Negative)
== END ==
PROVIDERS: PCP Family Medicine; Visit Provider Nurse Practitioner Family
DX: U07.1 COVID-19 (principal); R05.1 Acute cough; Z20.822 Contact with and (suspected) exposure to COVID-19
CPT/HCPCS: 0241U

== ENCOUNTER → 2023-05-07 07:00 | Outpatient (CLI) | payer MEDICARE, OTHER, SELFPAY ==
[2023-05-07 09:26] LABS: Add Manual Diff / Slide Review NO; Basophils Absolute Auto 100 /uL (0-100); Basophils Percent Auto 1.3 % (0-2); Eosinophils Absolute Auto 200 /uL (0-450); Eosinophils Percent Auto 2.3 % (2-4); Hematocrit 44.3 % (36-46); Hemoglobin 15.1 g/dL (12.0-16.0); Lymphocytes Absolute Auto 2900 /uL (1100-4500); Lymphocytes Percent Auto 43.3 % (25-40); Mean Corpuscular HGB Conc 34.2 % (30-36); Mean Corpuscular Volume 90.8 fL (80-100); Monocytes Absolute Auto 700 /uL (0-900); Monocytes Percent Auto 10.2 % (3-14); Neutrophils Absolute Auto 2900 /uL (1500-7000); Neutrophils Percent Auto 42.9 % (50-75); Platelet Count 393 X10^3/uL (150-400); Red Blood Cell Count 4.88 X10^6/uL (4.0-5.2); Red Cell Distribution Width 13.8 % (11.6-14.8); White Blood Cell Count 6.7 X10^3/uL (4.5-11.0)
[2023-05-07 09:42] LABS: Alanine Aminotransferase 21 IU/L (<35); Albumin 4.2 g/dL (3.5-5.0); Albumin Globulin Ratio 1.4 (1.0-2.8); Alkaline Phosphatase 74 U/L (38-126); Aspartate Aminotransferase 26 IU/L (14-36); BUN Creatinine Ratio 16.4 (6-22); Bilirubin Total 1.1 mg/dL (0.2-1.3); Blood Urea Nitrogen 11 mg/dL (7-17); Calcium 9.3 mg/dL (8.4-10.2); Carbon Dioxide 27 mmol/L (22-32); Chloride 105 mmol/L (98-107); Cholesterol 254 mg/dL (140-199); Estimated Glomerular Filt Rate > 60 mL/min (>60); Globulin 3.1 g/dL (1.7-4.1); Glucose 102 mg/dL (80-110); HDL Cholesterol 62 mg/dL (40-60); HEMOLYSIS < 15 (0-50); LDL Cholesterol Calculated 169 mg/dL (<100); Potassium 4.3 mmol/L (3.4-5.1); Sodium 140 mmol/L (137-145); Total Protein 7.3 g/dL (6.3-8.2); Triglycerides 115 mg/dL (35-150)
[2023-05-07 09:55] LABS: Vitamin D 25 Hydroxy (D3) 38.8 ng/mL (30.0-100.0)
[2023-05-07 10:30] LABS: Vitamin B12 395 pg/mL (239-931)
[2023-05-08 07:38] LABS: Calcium 9.1 mg/dL (8.7-10.3); Parathyroid Hormone, Intact 42 pg/mL (15-65)
== END ==
PROVIDERS: PCP Student in an Organized Health Care Education/Training Program; Referring Provider Student in an Organized Health Care Education/Training Program; Visit Provider Student in an Organized Health Care Education/Training Program
DX: E78.49 Other hyperlipidemia (principal); E55.9 Vitamin D deficiency, unspecified; D36.9 Benign neoplasm, unspecified site; J45.991 Cough variant asthma
CPT/HCPCS: 36415; 80053; 80061; 82306; 82310; 82607; 83970; 85025

== ENCOUNTER 2023-06-04 14:00 | Outpatient (CLI) | payer MEDICARE, OTHER, SELFPAY ==
[2023-06-04] VITALS (10 sets, daily range): BP systolic 117–159; BP diastolic 69–89; PULSE 82–96; RESP 14–24; O2SAT 94–97
--- NOTE | 2023-06-04 14:02 | DI.RAD.S_ITS ---
PROCEDURE: PAIN L/S TRANSFORAMINAL INJECT INDICATIONS: SPONDYLOSIS COMPARISON: [facility], , PAIN L/S TRANSFORAMINAL INJECT, 07/23/2022, 14:13. FINDINGS: Fluoroscopic spot filming was performed to verify placement of a spinal needle at the L5-S1 level, as labeled on the films. Appropriate location of the needle tip was confirmed by injection of iodinated contrast. IMPRESSION: No significant intraprocedural abnormality. Dictated by: Bao Ortega M.D. on 06/04/2023 at 17:14 Approved by: Bao Ortega M.D. on 06/04/2023 at 17:14
[2023-06-04] MEDS: MIDAZOLAM 2 MG/2 ML VIAL 1 MG IV ×2 (14:22→14:28)
[2023-06-04] MEDS: DEXAMETHASONE 10 MG/ML VIAL INJ (14:26)
[2023-06-04] MEDS: iopamidoL 15 ML VIAL 3 ML INJ (14:26)
--- NOTE | 2023-06-04 14:47 | P.PCN_ITS ---
Date/Time/Diagnoses Date of procedure: 06/04/23 Time of procedure: 14:30 Procedure Notes Physician: Derek Bagley Total Fluoroscopy time (seconds): 16 Total sedation minutes: 12 Procedure in detail & Post-procedure care: Right L5-S1 Transforaminal Epidural Steroid Injection Indications: Katy is presenting for treatment of lumbar radiculopathy with low back and leg pain. Preoperative diagnosis: Lumbar radiculopathy Postoperative diagnosis: Same Focused Examination: Ax3 Mood and affect are normal Vital Signs: VSS ASA: 2 Consent: Following review of allergies and potential side effects/complications, including, but not necessarily limited to, infection, allergic reaction, local tissue breakdown, stroke, temporary or permanent nerve injury, paralysis, and possible , the patient indicated that they understood and agreed to proceed.? An informed consent document was signed by the patient, witnessed by a nurse and placed in the patient's chart.? Additionally, other treatment options including medications and physical therapy were reviewed with the patient. All questions were answered. Site was then marked. Anesthesia: After review of previous anesthetic history and IV conscious sedation, the patient was deemed safe to proceed with today's procedure with IV conscious sedation. IV sedation was accomplished with midazolam 2 mg administered by the RN after order by Dr. Bagley. Sedation was titrated to patient comfort during the course of the procedure. Patient remained responsive to all verbal commands. Position: Prone Monitoring: NIBP, Pulse oximetry, 3 lead EKG Needle used: 22G 3.5 inch spinal needle Contrast: Isovue 300M Injectate: 10 mg Dexamethasone mixed with 1% lidocaine 1 ml and normal saline 1 mL Technique: The skin was prepped with chloraprep and draped in a sterile fashion. Time out was performed as per protocol. Oxygen applied via NC. Skin and subcutaneous structures of the needle entry site were infiltrated with 3mL of lidocaine 1%. Under fluoroscopic guidance, using an ipsilateral oblique view,?a 22 gauge 3.5 inch needle was advanced to the base of the right L5?pedicle.? The needle was advanced to the superio-posterior aspect of the neural foramen under lateral view.? Oblique and AP views were rechecked. No paresthesias noted by the patient during needle placement. In AP view and utilizing real-time digital subtraction fluoroscopy, 2 ml contrast was slowly injected. Epidural spread was observed without evidence for intravascular nor intrathecal uptake. Contrast spread was seen craniocaudally. The above injectate was then administered without paresthesias and the needle was subsequently withdrawn. Band-Aids applied to injection sites. EBL: less than 1 ml Complications: None Post Procedure: Patient was taken to the recovery and monitored. The patient was provided a Pain Log to continue to record the patient's response to the target- specific procedure prior to the patient's follow-up visit with the referring physician. Patient was stable upon discharge. Detailed post procedure instructions were provided. Patient was asked to call in the event of worsening pain, fever, weakness, numbness or bladder or bowel incontinence.
== END 2023-06-04 15:02 | disposition home or self-care (01) ==
LOC: RAD 14:00
PROVIDERS: PCP Student in an Organized Health Care Education/Training Program; Referring Provider Anesthesiology; Visit Provider Anesthesiology
DX: M54.17 Radiculopathy, lumbosacral region (principal)
CPT/HCPCS: 64483; 99152; J1100; J2250

== ENCOUNTER → 2023-06-07 11:16 | Outpatient (CLI) | payer MEDICARE, OTHER, SELFPAY ==
--- NOTE | 2023-06-07 11:17 | DI.MG.S_ITS ---
BILATERAL DIGITAL SCREENING MAMMOGRAM 3D/2D WITH CAD: 06/07/2023 CLINICAL: Routine screening. Comparison is made to exams dated: 05/29/2022 mammogram, 05/04/2021 mammogram, and 03/24/2020 mammogram - [facility]. There are scattered areas of fibroglandular density in both breasts (category b / 25%-50% glandular tissue). Current study was also evaluated with a Computer Aided Detection (CAD) system. There are benign post operative findings in both breasts. No significant masses, calcifications, or other findings are seen in either breast. There has been no significant interval change. IMPRESSION: BENIGN There is no mammographic evidence of malignancy. A 1 year screening mammogram is recommended. Based on the Tyrer Cuzick model (a risk assessment model) the patient's lifetime risk is 2.4% and her 10 year risk is 0.0%. According to the ACR, ACS, and NCCN guidelines, an annual breast MRI exam along with mammogram is recommended if the patient's lifetime risk is 20% or greater. This exam was interpreted at Station ID: [id number]. NOTE: For mammograms, a report in lay terms will be sent to the patient. Approximately 15% of breast malignancies will not be visualized mammographically. In the management of a palpable breast mass, a negative mammogram must not discourage biopsy of a clinically suspicious lesion. Electronically Signed By: Honey devine/haley:06/09/2023 12:48:51 letter sent: Normal Exam ACR BI-RADS Category 2: Benign Finding(s) 3342F
== END ==
PROVIDERS: PCP Student in an Organized Health Care Education/Training Program; Referring Provider Student in an Organized Health Care Education/Training Program; Visit Provider Student in an Organized Health Care Education/Training Program
DX: Z12.31 Encounter for screening mammogram for malignant neoplasm of breast (principal)
CPT/HCPCS: 77063; 77067

== ENCOUNTER → 2023-07-21 17:18 | Outpatient (CLI) | payer MEDICARE, OTHER, SELFPAY ==
[2023-07-24 15:36] LABS: Deamidated Gliadin Ab IgA 15 units (0-19); Deamidated Gliadin Ab IgG 4 units (0-19); Immunoglobulin A,Qn 463 mg/dL (64-422); t-Transglutaminase IgA 3 U/mL (0-3)
== END ==
PROVIDERS: PCP Student in an Organized Health Care Education/Training Program; Referring Provider Student in an Organized Health Care Education/Training Program; Visit Provider Student in an Organized Health Care Education/Training Program
DX: R14.0 Abdominal distension (gaseous) (principal); R19.7 Diarrhea, unspecified
CPT/HCPCS: 36415; 82784; 83516

== ENCOUNTER → 2023-08-08 15:36 | Outpatient (CLI) | payer MEDICARE, OTHER, SELFPAY ==
[2023-08-08 17:44] LABS: Cholesterol 224 mg/dL (140-199); HDL Cholesterol 57 mg/dL (40-60); LDL Cholesterol Calculated 151 mg/dL (<100); Triglycerides 81 mg/dL (35-150)
== END ==
PROVIDERS: PCP Student in an Organized Health Care Education/Training Program; Referring Provider Student in an Organized Health Care Education/Training Program; Visit Provider Student in an Organized Health Care Education/Training Program
DX: E78.49 Other hyperlipidemia (principal)
CPT/HCPCS: 36415; 80061

== ENCOUNTER 2023-11-06 15:30 | Emergency (ER) | payer MEDICARE, OTHER, SELFPAY ==
[2023-11-06] VITALS (12 sets, daily range): BP systolic 130–166; BP diastolic 70–101; PULSE 72–95; RESP 18–26; O2SAT 94–98; BMI 25.9
--- NOTE | 2023-11-06 15:41 | DI.CT.S_ITS ---
PROCEDURE: CT HEAD/BRAIN WO CON INDICATIONS: vision problems TECHNIQUE: Noncontrast 4.5 mm thick angled axial sections acquired from the foramen magnum to the vertex, with coronal and sagittal reformats. For radiation dose reduction, the following was used: automated exposure control, adjustment of mA and/or kV according to patient size. COMPARISON: None. FINDINGS: Image quality: Diagnostic. CSF spaces: Basal cisterns are patent. No extra-axial fluid collections. The ventricles are symmetric in size and shape. Brain: No intracranial bleeds or masses. There is cerebral volume loss for age, with resultant ventricular and sulcal prominence. There are periventricular and deep white matter chronic small vessel ischemic changes. There is intracranial internal carotid artery atherosclerosis. Skull and face: Calvarium and visualized facial bones appear intact, without suspicious lesions. Sinuses: Visualized sinuses and mastoids are clear. IMPRESSION: No acute intracranial pathology. Dictated by: Zuly Mccabe MD, PhD on 11/06/2023 at 16:21 Approved by: Zuly Mccabe MD, PhD on 11/06/2023 at 16:22
--- NOTE | 2023-11-06 15:41 | DI.RAD.S_ITS ---
PROCEDURE: XR CHEST 1V INDICATIONS: Possible stroke TECHNIQUE: One view of the chest was acquired. COMPARISON: [facility], CHEST 2 VIEW, 02/11/2017, 12:11. [facility], CHEST 1 VIEW, 08/19/2016, 17:01. FINDINGS: Surgical changes and devices: None. Lungs and pleura: Lungs are clear. No pleural effusions or pneumothorax. Mediastinum: Mediastinal contours appear normal. Heart size is normal. Bones and chest wall: No suspicious bony lesions. Overlying soft tissues appear unremarkable. IMPRESSION: No acute cardiopulmonary abnormality is seen. Dictated by: Zuly Mccabe MD, PhD on 11/06/2023 at 16:20 Approved by: Zuly Mccabe MD, PhD on 11/06/2023 at 16:21
[2023-11-06 16:03] LABS: Add Manual Diff / Slide Review NO; Basophils Absolute Auto 100 /uL (0-100); Basophils Percent Auto 0.8 % (0-2); Eosinophils Absolute Auto 200 /uL (0-450); Eosinophils Percent Auto 2.3 % (2-4); Hematocrit 39.6 % (36-46); Hemoglobin 13.6 g/dL (12.0-16.0); Lymphocytes Absolute Auto 2800 /uL (1100-4500); Lymphocytes Percent Auto 27.7 % (25-40); Mean Corpuscular HGB Conc 34.4 % (30-36); Mean Corpuscular Hemoglobin 31.2 PG (26-34); Mean Corpuscular Volume 90.5 fL (80-100); Monocytes Absolute Auto 700 /uL (0-900); Neutrophils Absolute Auto 6300 /uL (1500-7000); Neutrophils Percent Auto 62.2 % (50-75); Platelet Count 383 X10^3/uL (150-400); Red Blood Cell Count 4.38 X10^6/uL (4.0-5.2); White Blood Cell Count 10.1 X10^3/uL (4.5-11.0)
[2023-11-06 16:11] LABS: Prothrombin Time 11.3 SECONDS (9.4-12.5)
[2023-11-06 16:13] LABS: PTT Partial Thromboplastin Tim 37 SECONDS (25.1-36.5)
[2023-11-06 16:18] LABS: Alanine Aminotransferase 26 IU/L (<35); Albumin 4.4 g/dL (3.5-5.0); Albumin Globulin Ratio 1.3 (1.0-2.8); Alkaline Phosphatase 71 U/L (38-126); Aspartate Aminotransferase 33 IU/L (14-36); BUN Creatinine Ratio 26.3 (6-22); Bilirubin Total 0.7 mg/dL (0.2-1.3); Blood Urea Nitrogen 21 mg/dL (7-17); Calcium 9.2 mg/dL (8.4-10.2); Carbon Dioxide 23 mmol/L (22-32); Chloride 106 mmol/L (98-107); Creatine Kinase 29 U/L (30-135); Estimated Glomerular Filt Rate > 60 mL/min (>60); Globulin 3.4 g/dL (1.7-4.1); Glucose 108 mg/dL (80-110); HEMOLYSIS < 15 (0-50); Magnesium 1.8 mg/dL (1.6-2.3); Sodium 138 mmol/L (137-145); Total Protein 7.8 g/dL (6.3-8.2)
[2023-11-06 16:30] LABS: Troponin I < 0.012 ng/mL (0.01-0.034)
[2023-11-06 17:01] LABS: Bacteria Urine Moderate (10-30); RBC Urine 1-5/HPF (0-5/HPF); Squamous Epithelial Cell Urine 1-5 /HPF (0-5/HPF); Urine Volume 10mL (spun); WBC Urine 10-30/HPF (0-5/HPF)
[2023-11-06 17:02] LABS: Culture Indicated Urine Specimen Cultured
--- NOTE | 2023-11-06 21:04 | ED.NEUROSD ---
HPI - Neuro Symptoms/Deficit General Chief Complaint: Neuro Symptoms/Deficit Stated Complaint: sent by MD for a brain scan Time Seen by Provider: 11/06/23 16:52 Source: patient Mode of arrival: Ambulatory History of Present Illness HPI Narrative: 77-year-old female with history hyperlipidemia presents by private vehicle for evaluation of possible stroke. Patient states that yesterday afternoon she noticed that her vision seemed to be blurry. She states that it seems as though a film is over eyes and she can not see with the same acuity is she normally can. Today she called her eye doctor, who performed an exam that showed no retinal abnormalities. Patient reportedly had a brief episode of double vision while at the ophthalmology office and the dinkey engineer referred her to the emergency department for further evaluation. Patient continues to report slightly blurry vision. Patient states over the last several months she has had intermittent strange symptoms. She says that sometimes she will forget words and have trouble speaking to her friends. This will resolve after a short amount of time. She also states that she has had increasing issues with her memory recently and thinks that all of these may be related to what is going on today. Denies numbness, weakness, vertigo, loss of vision, difficulty ambulating. On Anticoagulants: No Related Data Previous Rx's Medication Instructions Recorded beclomethasone dipropionate 80 1 inh inhalation Q12H PRN asthma 08/30/21 mcg/actuation HFA breath activated #10.6 grams aerosol (Qvar RediHaler) atorvastatin 40 mg tablet See Rx Instructions .Route 01/02/22 .COMPLEX #90 tabs omeprazole 20 mg capsule,delayed See Rx Instructions .Route 08/19/22 release .COMPLEX #90 caps dextromethorphan polistirex 30 10 ml PO Q12H PRN cough #89 mL 10/26/22 mg/5 mL oral susp ext.release 12hr (Delsym 12 hour) albuterol sulfate 90 mcg/actuation 1 puff inhalation Q6H PRN 10/29/22 aerosol inhaler (ProAir HFA) bronchospasm #8.5 grams fluticasone 500 mcg-salmeterol 50 1 inh inhalation BID #60 ea 10/29/22 mcg/dose blistr powdr for inhalation (Advair Diskus) benzonatate 100 mg capsule 100 mg PO TID PRN cough #30 caps 07/06/23 Allergies Allergy/AdvReac Type Severity Reaction Status Date / Time hydrocodone [HYDROCODONE] AdvReac Mild SEVERE Verified 07/06/23 09:48 VOMITING Review of Systems Review of Systems Narrative: Negative except as noted above Hematologic/Lymphatic On Anticoagulants: No Patient History Medical History Right hip pain Long COVID Arthritis of carpometacarpal (CMC) joint of left thumb Greater trochanteric bursitis of right hip Radiculopathy, lumbosacral region Menopausal and perimenopausal disorder Disc degeneration, lumbar Wears glasses Rosacea (~2019) Asthma (~2014) Foot pain (~2019) Cataracts, bilateral (~2015) Endometriosis (~1977) Arthritis of left hand Hyperlipidemia Healthy adult Surgical History Anesthesia Status post breast reduction (~2015) Family History Brother Cancer Brother History of heart disease Grandfather Cancer Grandfather Cancer Grandmother Cancer Social History Smoking Status: Never smoker Smoking Status: Never smoker Substance Use Type: does not use Exam Initial Vital Signs Initial Vital Signs: Vital Signs Pulse Rate 95 H 11/06/23 15:41 Respiratory Rate 18 11/06/23 15:41 Blood Pressure 161/77 H 11/06/23 15:41 Pulse Oximetry 97 11/06/23 15:41 Oxygen Delivery Method Room Air 11/06/23 15:41 Const: Awake, alert, no acute distress, nontoxic appearing Eyes: Extraocular movements intact, pupils equal and reactive, no nystagmus Cardiac: regular rate, regular rhythm RESP: unlabored, clear bilaterally, no wheezing GI: Atraumatic, soft, nontender, nondistended, no rebound, no guarding MSK: Atraumatic, full range of motion, pulses equal Skin: Warm, Dry, intact, no rashes Neuro: AO x3, CN II-XII grossly intact, moves all extremities, no numbness, strength 5/5 in upper and lower extremities, gait normal, no ataxia Course Orders Ordered: ED Orders 11/06/23 21:03 CT angio head and neck Stat Discontinued Medications Ondansetron HCl (Ondansetron 4 Mg/2 Ml Inj) 4 mg IV NOW PRN PRN Reason: Nausea And Vomiting Vital Signs Vital signs: Vital Signs - 8 hr 11/06/23 21:30 11/06/23 21:30 11/06/23 22:00 Pulse Rate 79 79 Respiratory Rate 21 22 Blood Pressure 157/83 H Pulse Oximetry 98 97 11/06/23 22:00 11/06/23 22:30 11/06/23 22:30 Pulse Rate 75 Respiratory Rate 24 Blood Pressure 146/70 H 130/91 H Pulse Oximetry 95 11/06/23 23:00 11/06/23 23:00 11/06/23 23:30 Pulse Rate 74 Respiratory Rate 24 Blood Pressure 152/79 H 159/77 H Pulse Oximetry 95 11/06/23 23:30 11/07/23 00:00 11/07/23 00:00 Pulse Rate 73 74 Respiratory Rate 20 20 Blood Pressure 142/81 H Pulse Oximetry 95 96 MDM - Neuro Symptoms/Deficit Differential Diagnosis Differential diagnosis: Likely subarachnoid hemorrhage, cerebrovascular accident and multiple sclerosis Lab Data 11/06/23 15:52 11/06/23 15:52 Labs: Lab Results 11/06/23 11/06/23 Range/Units 15:52 16:30 WBC 10.1 (4.5-11.0) X10^3/uL RBC 4.38 (4.0-5.2) X10^6/uL Hgb 13.6 (12.0-16.0) g/dL Hct 39.6 (36-46) % MCV 90.5 (80-100) fL MCH 31.2 (26-34) PG MCHC 34.4 (30-36) % RDW 14.0 (11.6-14.8) % Plt Count 383 (150-400) X10^3/uL Neut % (Auto) 62.2 (50-75) % Lymph % (Auto) 27.7 (25-40) % [place] % (Auto) 7.0 (3-14) % Eos % (Auto) 2.3 (2-4) % Baso % (Auto) 0.8 (0-2) % Neut # (Auto) 6300 (8477-1572) /uL Lymph # (Auto) 2800 (2268-9021) /uL [place] # (Auto) 700 (0-900) /uL Eos # (Auto) 200 (0-450) /uL Baso # (Auto) 100 (0-100) /uL PT 11.3 (9.4-12.5) SECONDS INR 1.0 (0.9-1.3) APTT 37 H (25.1-36.5) SECONDS Sodium 138 (137-145) mmol/L Potassium 4.0 (3.4-5.1) mmol/L Chloride 106 (98-107) mmol/L Carbon Dioxide 23 (22-32) mmol/L BUN 21 H (7-17) mg/dL Creatinine 0.80 (0.52-1.04) mg/dL Estimated GFR > 60 (>60) mL/min BUN/Creatinine Ratio 26.3 H (6-22) Glucose 108 (80-110) mg/dL Calcium 9.2 (8.4-10.2) mg/dL Magnesium 1.8 (1.6-2.3) mg/dL Total Bilirubin 0.7 (0.2-1.3) mg/dL AST 33 (14-36) IU/L ALT 26 (<35) IU/L Alkaline Phosphatase 71 (38-126) U/L Total Creatine Kinase 29 L (30-135) U/L Troponin I < 0.012 (0.01-0.034) ng/mL Total Protein 7.8 (6.3-8.2) g/dL Albumin 4.4 (3.5-5.0) g/dL Globulin 3.4 (1.7-4.1) g/dL Albumin/Globulin Ratio 1.3 (1.0-2.8) Urine RBC 1-5/hpf (0-5/HPF) Urine WBC 10-30/hpf H (0-5/HPF) Ur Squamous Epith Cells 1-5 /hpf (0-5/HPF) Urine Bacteria Moderate (10-30) H (None) Ur Culture Indicated? Specimen cultured Vol Urine Centrifuged 10ml (spun) Urine Dip Bedside Urine Glucose Negative Bedside Urine Bilirubin - Negative Bedside Urine Ketone - Negative Urine Specific [place] 1.030 Bedside Urine Occult Blood +/- Bedside Urine pH 5.5 Bedside Urine Protein - Negative Bedside Urine Urobilinogen - Negative Bedside Urine Nitrite - Negative Bedside Urine Leukocytes +/- [address] scan - head: Radiologist's Impression: PROCEDURE: CT HEAD/BRAIN WO CON INDICATIONS: vision problems TECHNIQUE: Noncontrast 4.5 mm thick angled axial sections acquired from the foramen magnum to the vertex, with coronal and sagittal reformats. For radiation dose reduction, the following was used: automated exposure control, adjustment of mA and/or kV according to patient size. COMPARISON: None. FINDINGS: Image quality: Diagnostic. CSF spaces: Basal cisterns are patent. No extra-axial fluid collections. The ventricles are symmetric in size and shape. Brain: No intracranial bleeds or masses. There is cerebral volume loss for age, with resultant ventricular and sulcal prominence. There are periventricular and deep white matter chronic small vessel ischemic changes. There is intracranial internal carotid artery atherosclerosis. Skull and face: Calvarium and visualized facial bones appear intact, without suspicious lesions. Sinuses: Visualized sinuses and mastoids are clear. IMPRESSION: No acute intracranial pathology. Dictated by: Zuly Mccabe MD, PhD on 11/06/2023 at 16:21 Approved by: Zuly Mccabe MD, PhD on 11/06/2023 at 16:22 PROCEDURE: CT ANGIO HEAD AND NECK INDICATIONS: DOUBLE VISION X 24 HRS TECHNIQUE: After the administration of intravenous contrast, 1 mm thick sections acquired from the aortic arch through the [place]. 3-dimensional rxwyflb-eirrfjhum-kvcurqfshu (MIP) and/or volume rendering reformats were acquired of the central intracranial vasculature and neck separately. For radiation dose reduction, the following was used: automated exposure control, adjustment of mA and/or kV according to patient size. COMPARISON: None. FINDINGS: Image quality: Diagnostic. BRAIN: CSF spaces: Ventricles are normal in size and shape. Basal cisterns are patent. No extra-axial fluid collections. Brain: No significant abnormality of the brain can be seen. Skull and face: Calvarium and facial bones appear intact, without suspicious lesions. Orbits appear normal. Sinuses: Mucosal thickening in bilateral maxillary sinuses and ethmoid sinuses are seen. Bilateral mastoid air cells are well aerated. HEAD CT ANGIOGRAPHY: Anterior circulation: Intracranial internal carotid arteries are normal in size and flow. The flow within the paired anterior cerebral arteries is normal and symmetric. The flow within the middle cerebral arteries is normal and symmetric. The anterior communicating artery is seen. No aneurysms are seen. Posterior circulation: Visualized portions of the vertebral arteries demonstrate normal caliber, and join to form a normal appearing basilar artery. Flow within the posterior cerebral arteries is normal and symmetric. No aneurysms are seen. NECK CT ANGIOGRAPHY: Carotid system: The great vessels demonstrate a conventional anatomy as they arise from the aortic arch. The origins of the common carotid arteries appear patent. The common carotid arteries demonstrate normal caliber and courses. The bifurcation regions are both widely patent. The internal carotid arteries demonstrate normal calibers and courses. Posterior circulation: The origins of the vertebral arteries both appear widely patent. The more superior extracranial portions of both vertebral arteries also demonstrate normal courses and calibers. They join to form a normal appearing basilar artery. Soft tissues: Visualized neck soft tissues demonstrate no suspicious abnormalities. Bones: No suspicious bony lesions. Visualized cervical spine appears normally aligned. IMPRESSION: 1. No area of abnormal intracranial enhancement. 2. No hemodynamically significant stenosis or aneurysm is seen in the intracranial circulation. 3. No hemodynamically significant stenosis is seen in bilateral neck arteries. 4. Bilateral ethmoid and maxillary sinusitis. Any quantitative measurements of stenosis were performed using NASCET criteria. Dictated by: Juan Pablo Quiroz M.D. on 11/06/2023 at 22:04 Approved by: Juan Pablo Quiroz M.D. on 11/06/2023 at 22:06 ECG Data Interpretation: Normal sinus rhythm, rate 89 beats per minute. No ST T wave changes, no STEMI MDM Narrative Medical decision making narrative: Well-appearing patient with 1 day blurred vision, sent in for reported episode of double vision while at the dinkey engineer. Patient is currently endorsing poor vision, however other than the reported visual abnormalities when reading close up there is no focal deficit, NIH is 0. Patient reports ongoing intermittent, very symptoms over several months. Laboratory work is reviewed, unremarkable. CT brain, CT angio of the head and neck is negative for acute findings. Based on patient's ongoing intermittent symptoms as well as benign exam I a.m. less suspicious that this is an acute ischemic event. Patient was advised of lab and imaging findings and recommended close follow up with primary care physician as well as Neurology. Discharge Plan Departure Patient Disposition: Home Clinical Impression: Blurred vision Instructions: DI for Double Vision Activity Restrictions/Additional Instructions: Follow up with your primary care physician and a neurologist. You may take a daily baby aspirin as well. The CTs of your brain today were normal and did not show any acute blood clot, tumor, other abnormality. Prescriptions: No Action dextromethorphan polistirex [Delsym 12 hour] 30 mg/5 mL suspension,extended rel 12 hr 10 ml PO Q12H PRN (Reason: cough) Qty: 89 0RF benzonatate 100 mg capsule 100 mg PO TID PRN (Reason: cough) Qty: 30 0RF atorvastatin 40 mg tablet See Rx Instructions .ROUTE .COMPLEX Qty: 90 3RF Dose Instruction: TAKE 1 TABLET BY MOUTH AT BEDTIME Rx Instructions: TAKE 1 TABLET BY MOUTH AT BEDTIME every other day omeprazole 20 mg capsule,delayed release(DR/EC) See Rx Instructions .ROUTE .COMPLEX Qty: 90 3RF Dose Instruction: TAKE 1 CAPSULE BY MOUTH DAILY Rx Instructions: TAKE 1 CAPSULE BY MOUTH DAILY albuterol sulfate [ProAir HFA] 90 mcg/actuation HFA aerosol inhaler 1 puff INHALATION Q6H PRN (Reason: bronchospasm) Qty: 8.5 6RF fluticasone propion-salmeterol [Advair Diskus] 500-50 mcg/dose blister with device 1 inh inhalation BID Qty: 60 3RF Qvar RediHaler 80 mcg/actuation HFA aerosol breath activated 1 inh inhalation Q12H PRN (Reason: asthma) Qty: 10.6 6RF Referrals: Yoanna Arnold DO [Primary Care Provider] - Stand Alone Forms: Patient Portal/API
[2023-11-07] VITALS: BP 142/81; PULSE 74; RESP 20; O2SAT 96
== END 2023-11-07 00:27 | disposition home or self-care (01) ==
PROVIDERS: Emergency Medicine; Emergency Provider Emergency Medicine; PCP Student in an Organized Health Care Education/Training Program
DX: H53.2 Diplopia (principal); H53.8 Other visual disturbances; R03.0 Elevated blood-pressure reading, without diagnosis of hypertension
CPT/HCPCS: 36415; 70450; 70496; 70498; 71045; 80053; 81003; 81015; 82550; 83735; 84484; 85025; 85610; 85730; 87086; 93005; 93010; 99284; Q9967

== ENCOUNTER → 2023-11-18 16:06 | Outpatient (CLI) | payer MEDICARE, OTHER, SELFPAY ==
--- NOTE | 2023-11-18 16:09 | DI.RAD.S_ITS ---
PROCEDURE: XR HAND RT 2V INDICATIONS: Hand pain TECHNIQUE: 3 views of the hand(s) acquired. COMPARISON: [facility], CR, XR HAND LT MIN 3V, 09/24/2022, 13:33. FINDINGS: Bones: No fractures or dislocations. Carpal bones are normally aligned. Mosj-hv-testogcx IP and carpal bone joint space narrowing and juxta-articular osteophytosis. Moderate 1st CMC and STT joint space narrowing and juxta-articular osteophytosis. No suspicious bony lesions. Soft tissues: No suspicious soft tissue calcifications. IMPRESSION: 1. No acute bony abnormality. If there is high clinical suspicion for a radiographically occult fracture, consider repeat imaging in 10-14 days versus cross-sectional imaging. 2. Mild to moderate diffuse osteoarthritis. Dictated by: Irwin Rodriguez M.D. on 11/18/2023 at 22:22 Approved by: Irwin Rodriguez M.D. on 11/18/2023 at 22:23
--- NOTE | 2023-11-18 16:09 | DI.RAD.S_ITS ---
PROCEDURE: XR LUMBAR SPINE MIN 4V INDICATIONS: Back pain TECHNIQUE: 5 views of the lumbar spine were acquired, including bilateral oblique views. COMPARISON: [facility], , XR LUMBAR SPINE MIN 4V, 07/15/2022, 15:44. FINDINGS: Bones: 5 nonrib-bearing vertebrae are present. There is normal bony alignment. No vertebral body compression fractures. Severe degenerative changes at L4-5 and L5-S1 with osteophytosis, endplate sclerosis, disc height loss and facet arthropathy. Remainder of the spine demonstrates moderate multilevel degenerative changes. No suspicious bony lesions. Soft tissues: Overlying bowel gas pattern is normal. No suspicious soft tissue calcifications. Oblique images: No pars defects. IMPRESSION: 1. No acute bony abnormality. 2. Multilevel degenerative changes, severe at L4-5 and L5-S1. Findings are similar compared to prior dated July 15, 2022. Dictated by: Irwin Rodriguez M.D. on 11/18/2023 at 22:25 Approved by: Irwin Rodriguez M.D. on 11/18/2023 at 22:26
--- NOTE | 2023-11-18 16:09 | DI.RAD.S_ITS ---
PROCEDURE: XR HIP W PEL IF DONE [place] MIN 4V INDICATIONS: hip pain TECHNIQUE: AP pelvis with lateral view(s) of the bilateral hip(s). COMPARISON: [facility], CR, XR HIP W PEL IF DONE [place] 3TO4V, 01/21/2022, 14:42. FINDINGS: Bones: No fractures or dislocations. Moderate bilateral femoroacetabular joint space narrowing and juxta-articular osteophytosis, similar to prior. Degenerative changes of the lower lumbar spine. Pelvic ring appears intact. No suspicious bony lesions. Soft tissues: The visualized bowel gas pattern is normal. No suspicious soft tissue calcifications. IMPRESSION: 1. No acute bony abnormality. If there is high clinical suspicion for a radiographically occult fracture, recommend cross-sectional imaging for further evaluation. 2. Moderate bilateral hip osteoarthritis, similar to prior. Dictated by: Irwin Rodriguez M.D. on 11/18/2023 at 22:23 Approved by: Irwin Rodriguez M.D. on 11/18/2023 at 22:25
== END ==
PROVIDERS: PCP Student in an Organized Health Care Education/Training Program; Referring Provider Anesthesiology; Visit Provider Anesthesiology
DX: M18.11 Unilateral primary osteoarthritis of first carpometacarpal joint, right hand (principal); M19.041 Primary osteoarthritis, right hand; M16.0 Bilateral primary osteoarthritis of hip; M47.26 Other spondylosis with radiculopathy, lumbar region; M47.27 Other spondylosis with radiculopathy, lumbosacral region; M79.641 Pain in right hand; M25.551 Pain in right hip; M54.9 Dorsalgia, unspecified; M54.50 Low back pain, unspecified; G89.29 Other chronic pain
CPT/HCPCS: 72110; 73120; 73522; 99214

== ENCOUNTER 2023-12-03 12:46 | Outpatient (CLI) | payer MEDICARE, OTHER, SELFPAY ==
[2023-12-03] VITALS (8 sets, daily range): BP systolic 122–152; BP diastolic 70–78; PULSE 73–92; RESP 15–20; TEMP 37.3; O2SAT 95–98
--- NOTE | 2023-12-03 12:48 | DI.RAD.S_ITS ---
PROCEDURE: PAIN L/S TRANSFORAMINAL INJECT INDICATIONS: Right L5-S1 transforaminal epidural steroid injection COMPARISON: [facility], CR, XR LUMBAR SPINE MIN 4V, 11/18/2023, 16:09. [facility], XA, PAIN L/S TRANSFORAMINAL INJECT, 06/04/2023, 14:27. FINDINGS: Fluoroscopic spot filming was performed to verify placement of spinal needles at the right L5-S1 level(s), as labeled on the films. Appropriate location(s) of the needle tip(s) was confirmed by injection of iodinated contrast. IMPRESSION: Fluoroscopy for pain management. Dictated by: William Hannah M.D. on 12/03/2023 at 17:03 Approved by: William Hannah M.D. on 12/03/2023 at 17:04
[2023-12-03] MEDS: MIDAZOLAM 2 MG/2 ML VIAL IV (13:42)
[2023-12-03] MEDS: DEXAMETHASONE 10 MG/ML VIAL INJ (13:46)
[2023-12-03] MEDS: iopamidoL 15 ML VIAL 3 ML INJ (13:46)
--- NOTE | 2023-12-03 16:24 | P.PCN_ITS ---
Date/Time/Diagnoses Date of procedure: 12/03/23 Time of procedure: 13:30 Procedure Notes Physician: Derek Bagley Total Fluoroscopy time (seconds): 22 Total sedation minutes: 11 Procedure in detail & Post-procedure care: Right L5-S1 Transforaminal Epidural Steroid Injection Indications: Katy is presenting for treatment of lumbar radiculopathy with low back and leg pain. Preoperative diagnosis: Lumbar radiculopathy Postoperative diagnosis: Same Focused Examination: Ax3 Mood and affect are normal Vital Signs: VSS ASA: 2 Consent: Following review of allergies and potential side effects/complications, including, but not necessarily limited to, infection, allergic reaction, local tissue breakdown, stroke, temporary or permanent nerve injury, paralysis, and possible , the patient indicated that they understood and agreed to proceed.? An informed consent document was signed by the patient, witnessed by a nurse and placed in the patient's chart.? Additionally, other treatment options including medications and physical therapy were reviewed with the patient. All questions were answered. Site was then marked. Anesthesia: After review of previous anesthetic history and IV conscious sedation, the patient was deemed safe to proceed with today's procedure with IV conscious sedation. IV sedation was accomplished with midazolam 2 mg administered by the RN after order by Dr. Bagley. Sedation was titrated to patient comfort during the course of the procedure. Patient remained responsive to all verbal commands. Position: Prone Monitoring: NIBP, Pulse oximetry, 3 lead EKG Needle used: 22 gauge, 3.5 inch spinal needle Contrast: Isovue 300M Injectate: 10 mg Dexamethasone mixed with 1% lidocaine 1 ml and normal saline 1 mL Technique: The skin was prepped with chloraprep and draped in a sterile fashion. Time out was performed as per protocol. Oxygen applied via NC. Skin and subcutaneous structures of the needle entry site were infiltrated with 3mL of lidocaine 1%. Under fluoroscopic guidance, using an ipsilateral oblique view,?a 22 gauge, 3.5 inch needle was advanced to the base of the L5?pedicle.? The needle was advanced to the superio-posterior aspect of the neural foramen under lateral view.? Oblique and AP views were rechecked. No paresthesias noted by the patient during needle placement. In AP view and utilizing real-time digital subtraction fluoroscopy, 2 ml contrast was slowly injected. Epidural spread was observed without evidence for intravascular nor intrathecal uptake. Contrast spread was seen craniocaudally. The above injectate was then administered without paresthesias and the needle was subsequently withdrawn. Band-Aids applied to injection sites. EBL: less than 1 ml Complications: None Post Procedure: Patient was taken to the recovery and monitored. The patient was provided a Pain Log to continue to record the patient's response to the target- specific procedure prior to the patient's follow-up visit with the referring physician. Patient was stable upon discharge. Detailed post procedure instructions were provided. Patient was asked to call in the event of worsening pain, fever, weakness, numbness or bladder or bowel incontinence.
== END 2023-12-03 14:15 | disposition home or self-care (01) ==
LOC: RAD 12:47
PROVIDERS: PCP Student in an Organized Health Care Education/Training Program; Referring Provider Anesthesiology; Visit Provider Anesthesiology
DX: M54.16 Radiculopathy, lumbar region (principal)
CPT/HCPCS: 64483; 99152; J1100; J2250

== ENCOUNTER 2024-09-30 13:21 | Emergency (ER) | payer MEDICARE, OTHER, SELFPAY ==
[2024-09-30 13:39] VITALS: BP 169/80; PULSE 89; RESP 12; TEMP 36.7; O2SAT 96; BMI 25.4
--- NOTE | 2024-09-30 16:06 | ED_ITS ---
HPI - Neck Pain/Injury <Lucero Agudelo PA-C - Last Filed: 09/30/24 18:02> General Chief Complaint: Neck Pain/Injury Stated Complaint: severe head/neck pain, hx bone disease Time Seen by Provider: 09/30/24 15:50 Mode of arrival: Ambulatory History of Present Illness HPI Narrative: Ms. Majano is a pleasant 78-year-old female with a past medical history of asthma, hyperlipidemia, Paget's disease who presents to the emergency department for posterior neck pain and headache since last night. Patient reports last night around 5:30 p.m. while she was resting she developed pain in the back of her neck and in the base of her skull which is exacerbated by moving [id number]. Patient states pain is constant throbbing in nature. Reports experiencing similar pain on August 13 however she did not seek medical care at that time and the pain went away on it's own. However she is concerned that this pain is related to abnormal bony growths related to her Paget's disease. She does have an appointment scheduled with Braulio Bonilla on 10/22 to further discuss Paget's. She denies any direct trauma to the head or neck. Denies any visual disturbance, dizziness, lightheadedness, fevers, chills, nausea, vomiting, flu-like symptoms. She has taken no medications prior to arrival. Related Data Home Medications Medication Instructions Recorded Confirmed omeprazole 40 mg capsule,delayed 40 mg PO DAILY 11/18/23 12/08/23 release Previous Rx's Medication Instructions Recorded beclomethasone dipropionate 80 1 inh inhalation Q12H PRN asthma 08/30/21 mcg/actuation HFA breath activated #10.6 grams aerosol (Qvar RediHaler) atorvastatin 40 mg tablet See Rx Instructions .Route 01/02/22 .COMPLEX #90 tabs dextromethorphan polistirex 30 10 ml PO Q12H PRN cough #89 mL 10/26/22 mg/5 mL oral susp ext.release 12hr (Delsym 12 hour) albuterol sulfate 90 mcg/actuation 1 puff inhalation Q6H PRN 10/29/22 aerosol inhaler (ProAir HFA) bronchospasm #8.5 grams fluticasone 500 mcg-salmeterol 50 1 inh inhalation BID #60 ea 10/29/22 mcg/dose blistr powdr for inhalation (Advair Diskus) benzonatate 100 mg capsule 100 mg PO TID PRN cough #30 caps 07/06/23 meloxicam 7.5 mg tablet 7.5 mg PO DAILY #30 tabs 12/29/23 lidocaine 5 % topical patch 1 patch topical DAILY #15 ea 09/30/24 (Lidoderm) methocarbamol 500 mg tablet 500 mg PO TID #14 tabs 09/30/24 ondansetron 4 mg disintegrating 4 mg PO Q8H PRN nausea and 09/30/24 tablet vomiting #14 tabs Allergies Allergy/AdvReac Type Severity Reaction Status Date / Time hydrocodone [HYDROCODONE] AdvReac Mild SEVERE Verified 09/30/24 13:42 VOMITING Review of Systems <Lucero Agudelo PA-C - Last Filed: 09/30/24 18:02> Review of Systems ROS Unobtainable: All systems reviewed & are unremarkable except as noted in HPI and below Patient History <Lucero Agudelo PA-C - Last Filed: 09/30/24 18:02> Medical History Hand pain, left Arthritis of carpometacarpal (CMC) joint of right thumb Arthritis Osteoarthritis of right hip Lumbar radiculopathy Back pain Hand pain, right Right hip pain Long COVID Arthritis of carpometacarpal (CMC) joint of left thumb Greater trochanteric bursitis of right hip Radiculopathy, lumbosacral region Menopausal and perimenopausal disorder Disc degeneration, lumbar Wears glasses Rosacea (~2019) Asthma (~2014) Foot pain (~2019) Cataracts, bilateral (~2015) Endometriosis (~1977) Arthritis of left hand Hyperlipidemia Healthy adult Surgical History Anesthesia Status post breast reduction (~2015) Family History Brother Cancer Brother History of heart disease Grandfather Cancer Grandfather Cancer Grandmother Cancer Social History Smoking Status: Never smoker Smoking Status: Never smoker Exam <CHUCK Ambrosio Last Filed: 09/30/24 18:02> Narrative Exam Narrative: GENERAL: 78 year old patient appears stated age. Well-developed patient, in no acute distress. HEAD: Atraumatic. Normocephalic. EYES: PERRL. Extraocular motions intact. No scleral icterus. No injection or drainage. NECK: Trachea midline. Pain with range of motion of neck [id number] with stiff paraspinal cervical muscles. Neck is soft, supple. CARDIOVASCULAR: Regular rate and rhythm. RESPIRATORY: ?Nonlabored respirations. ?Speaking in clear, full sentences. ?Clear to auscultation. Breath sounds equal bilaterally. No wheezes, rales, or rhonchi. ? EXTREMITIES: No edema or joint tenderness. Normal ROM all extremities. BACK: Nontender without deformity or crepitance. No flank tenderness. NEURO: AOx3. ?Clear speech. ?Moves all 4 extremities appropriately. Bilateral bone char kiln tender strength intact, lower extremity knee flexion-extension intact. No facial asymmetry. SKIN: No rash or erythema of visible areas Initial Vital Signs Initial Vital Signs: Vital Signs Temperature 98.1 F 09/30/24 13:39 Pulse Rate 89 09/30/24 13:39 Respiratory Rate 12 09/30/24 13:39 Blood Pressure 169/80 H 09/30/24 13:39 Pulse Oximetry 96 09/30/24 13:39 Oxygen Delivery Method Room Air 09/30/24 13:39 <Susie Spear DO - Last Filed: 10/05/24 04:01> Initial Vital Signs Initial Vital Signs: Vital Signs Temperature 98.1 F 09/30/24 13:39 Pulse Rate 89 09/30/24 13:39 Respiratory Rate 12 09/30/24 13:39 Blood Pressure 169/80 H 09/30/24 13:39 Pulse Oximetry 96 09/30/24 13:39 Oxygen Delivery Method Room Air 09/30/24 13:39 Course <CHUCK Ambrosio Last Filed: 09/30/24 18:02> Orders Ordered: Discontinued Medications Diphenhydramine HCl (Diphenhydramine 50 Mg/Ml Vial) 25 mg IV NOW ONE Stop: 09/30/24 16:21 Last Admin: 09/30/24 17:04 Dose: 25 mg Documented By: YIN Sodium Chloride (Normal Saline 0.9%) 1,000 mls @ 1,000 mls/hr IV BOLUS ONE Stop: 09/30/24 17:19 Last Admin: 09/30/24 17:04 Dose: 1,000 mls/hr Documented By: YIN Ketorolac Tromethamine (Ketorolac 30 Mg/Ml Vial) 15 mg IV NOW ONE Stop: 09/30/24 16:21 Last Admin: 09/30/24 17:04 Dose: 15 mg Documented By: YIN Prochlorperazine (Prochlorperazine 10 Mg/2 Ml Vial) 10 mg IV NOW ONE Stop: 09/30/24 16:21 Last Admin: 09/30/24 17:05 Dose: 10 mg Documented By: YIN Vital Signs Vital signs: Vital Signs - 8 hr 09/30/24 13:39 Temperature 98.1 F Pulse Rate 89 Respiratory Rate 12 Blood Pressure 169/80 H Pulse Oximetry 96 Oxygen Delivery Method Room Air <Susie Spear DO - Last Filed: 10/05/24 04:01> Orders Ordered: Discontinued Medications Diphenhydramine HCl (Diphenhydramine 50 Mg/Ml Vial) 25 mg IV NOW ONE Stop: 09/30/24 16:21 Last Admin: 09/30/24 17:04 Dose: 25 mg Documented By: YIN Sodium Chloride (Normal Saline 0.9%) 1,000 mls @ 1,000 mls/hr IV BOLUS ONE Stop: 09/30/24 17:19 Last Admin: 09/30/24 17:04 Dose: 1,000 mls/hr Documented By: YIN Ketorolac Tromethamine (Ketorolac 30 Mg/Ml Vial) 15 mg IV NOW ONE Stop: 09/30/24 16:21 Last Admin: 09/30/24 17:04 Dose: 15 mg Documented By: YIN Prochlorperazine (Prochlorperazine 10 Mg/2 Ml Vial) 10 mg IV NOW ONE Stop: 09/30/24 16:21 Last Admin: 09/30/24 17:05 Dose: 10 mg Documented By: YIN Vital Signs Vital signs: Vital Signs - 8 hr 09/30/24 13:39 Temperature 98.1 F Pulse Rate 89 Respiratory Rate 12 Blood Pressure 169/80 H Pulse Oximetry 96 Oxygen Delivery Method Room Air MDM - Neck Pain/Injury <Lucero Agudelo PA-C - Last Filed: 09/30/24 18:02> Medical Records Attestation: I reviewed the patient's medical records. Imaging Data CT scan - head: Radiologist's Impression: PROCEDURE: CT HEAD/BRAIN WO CON INDICATIONS: posterior SHEIKH/neck pain nontraumatic; paget's disease TECHNIQUE: Noncontrast 4.5 mm thick angled axial sections acquired from the foramen magnum to the vertex, with coronal and sagittal reformats. For radiation dose reduction, the following was used: automated exposure control, adjustment of mA and/or kV according to patient size. COMPARISON: [facility], CT, CT HEAD/BRAIN WO CON, 11/06/2023, 16:01. FINDINGS: Image quality: Diagnostic. CSF spaces: Basal cisterns are patent. No extra-axial fluid collections. The ventricles are symmetric in size and shape. Brain: No intracranial bleeds or masses. There is cerebral volume loss for age, with resultant ventricular and sulcal prominence. There are periventricular and deep white matter chronic small vessel ischemic changes. There is intracranial internal carotid artery atherosclerosis. Skull and face: Calvarium and visualized facial bones appear intact, without suspicious lesions. Sinuses: Visualized sinuses and mastoids are clear. IMPRESSION: 1. CT head without acute intracranial abnormalities or acute calvarial fractures. 2. Age-related senescent changes and sequela of chronic small vessel ischemic disease. CT - cervical spine: Radiologist's Impression: PROCEDURE: CT CERVICAL SPINE WO CON INDICATIONS: posterior SHEIKH/neck pain nontraumatic; paget's disease TECHNIQUE: Noncontrast 3 mm thick sections acquired from the skull base to the T4 level. Sagittal and coronal reformats were then constructed. For radiation dose reduction, the following was used: automated exposure control, adjustment of mA and/or kV according to patient size. COMPARISON: [facility], CT, CT SOFT TISSUE NECK WITH CONTRAST, 09/10/2024, 16:54. FINDINGS: Image quality: Diagnostic Bones: No acute fractures or dislocations. No acute compression fractures of the vertebral bodies. Craniocervical junction is intact. C1-C2 relationship is preserved. Visualized superior ribs are intact. Redemonstration of moderate multilevel cervical spondylosis most pronounced at C5-6 and C6-7. Mild straightening of normal cervical lordosis likely related to positioning and/or concurrent muscle spasms. Soft tissues: Prevertebral soft tissues are normal in thickness. No paravertebral hematomas. No apical pneumothoraces. Chronic soft tissue calcifications noted posterior to the spinous processes at C6 and C7. IMPRESSION: CT cervical spine without acute fracture or traumatic malalignment. Moderate multilevel cervical spondylosis most pronounced at C5-6 and C6-7. Mild straightening of normal cervical lordosis likely related to positioning and/or concurrent muscle spasms. MDM Narrative Medical decision making narrative: 78-year-old female with a past medical history of asthma, hyperlipidemia, Paget's disease who presents to the emergency department for posterior neck pain and headache since last night. Differential diagnosis includes but is not limited to migraine headache, tension headache, cervicogenic headache, cervical degenerative disc disease, cervical radiculopathy, abnormality related to underlying bone disorder, etc. On exam the patient is in no acute distress, nontoxic appearing, afebrile and not tachycardic. She has no focal neurologic deficits. She does have pain in the neck and posterior scalp worse with movement. No fevers or flu-like symptoms concerning for meningitis at this time. Patient is interested in obtaining imaging of head and neck bones given history of Paget's disease which I am agreeable to. CT cervical spine and head CT noncontrast ordered. We will treat symptoms with headache cocktail consisting of fluids, Compazine, Benadryl, Toradol at this time. Head CT reveals no acute intracranial abnormalities or acute calvarial fractures, patient does have age-related senescent changes and sequela of chronic small-vessel ischemic disease. Cervical spine CT is without acute fracture or traumatic malalignment, she does have moderate multilevel cervical spondylosis most pronounced at C5-C6 and C6-C7. Mild straightening of normal cervical lordosis likely related to positioning or concurrent muscle spasms. Her headache has improved significantly. I printed CT scan results with the patient and discussed them with her. Recommended ibuprofen, Tylenol, Zofran for pain at home in addition to prescribe muscle relaxer. Discussed risks of muscle relaxer with the patient. Advised follow up with PCP. ED return precautions discussed. She verbalized understanding of all information is agreeable to plan she is stable for discharge home. Discharge Plan Departure Patient Disposition: Home Clinical Impression: Headache, cervicogenic, Cervical spondylosis Instructions: DI for Headache Activity Restrictions/Additional Instructions: Dear Ms. Majano, Thank you for coming into the emergency department today. You were evaluated for posterior head and neck pain. CT scan of your head and neck were obtained and reveal no acute changes however you do have some chronic findings including cervical degenerative disc disease. You were treated with a headache cocktail in the emergency department. I would like you to take ibuprofen, acetaminophen, prescribed nausea medicine and prescribed muscle relaxer if needed for continuing neck muscle spasms/pain and headache. Please follow up with your primary care doctor but return to the emergency department for any new or worsening symptoms or other concerns. Please take Ibuprofen (Motrin/Advil) or Acetaminophen (Tylenol) for pain. These are available over the counter. You may take Ibuprofen 600 mg every 8 hours with food for pain. You may also take Acetaminophen 650 mg every 4-6 hours for pain. Do not exceed 3000 mg of Tylenol a day as this can cause liver damage. Do not drink alcohol with either of these medications. Please follow up with your primary care doctor within the next 2-3 days for ER follow-up. (If you do not have a PCP you can call [phone]. ?to schedule an appointment with an [facility] Primary Care Provider) IF YOU DEVELOP ANY NEW OR WORSENING SYMPTOMS, RETURN TO THE ER! Please read the attached instructions, they highlight more specific treatments and interventions for you at home. Thank you for letting me participate in your care, Lucero Agudelo PA-C Prescriptions: New ondansetron 4 mg tablet,disintegrating 4 mg PO Q8H PRN (Reason: nausea and vomiting) Qty: 14 0RF methocarbamol 500 mg tablet 500 mg PO TID Qty: 14 0RF lidocaine [Lidoderm] 5 % adhesive patch,medicated 1 patch topical DAILY Qty: 15 0RF Rx Instructions: leave on most painful area for up to 12 hrs No Action dextromethorphan polistirex [Delsym 12 hour] 30 mg/5 mL suspension,extended rel 12 hr 10 ml PO Q12H PRN (Reason: cough) Qty: 89 0RF benzonatate 100 mg capsule 100 mg PO TID PRN (Reason: cough) Qty: 30 0RF atorvastatin 40 mg tablet See Rx Instructions .ROUTE .COMPLEX Qty: 90 3RF Dose Instruction: TAKE 1 TABLET BY MOUTH AT BEDTIME Rx Instructions: TAKE 1 TABLET BY MOUTH AT BEDTIME every other day albuterol sulfate [ProAir HFA] 90 mcg/actuation HFA aerosol inhaler 1 puff INHALATION Q6H PRN (Reason: bronchospasm) Qty: 8.5 6RF fluticasone propion-salmeterol [Advair Diskus] 500-50 mcg/dose blister with device 1 inh inhalation BID Qty: 60 3RF meloxicam 7.5 mg tablet 7.5 mg PO DAILY Qty: 30 2RF Qvar RediHaler 80 mcg/actuation HFA aerosol breath activated 1 inh inhalation Q12H PRN (Reason: asthma) Qty: 10.6 6RF omeprazole 40 mg capsule,delayed release(DR/EC) 40 mg PO DAILY Referrals: Yoanna Arnold DO [Primary Care Provider] - Stand Alone Forms: Patient Portal/API/Survey ED Sign-out <Susie Spear DO - Last Filed: 10/05/24 04:01> Cosign ED Attending Chyna Attestation: I was available for consultation.
--- NOTE | 2024-09-30 16:21 | DI.CT.S_ITS ---
PROCEDURE: CT CERVICAL SPINE WO CON INDICATIONS: posterior SHEIKH/neck pain nontraumatic; paget's disease TECHNIQUE: Noncontrast 3 mm thick sections acquired from the skull base to the T4 level. Sagittal and coronal reformats were then constructed. For radiation dose reduction, the following was used: automated exposure control, adjustment of mA and/or kV according to patient size. COMPARISON: [facility], CT, CT SOFT TISSUE NECK WITH CONTRAST, 09/10/2024, 16:54. FINDINGS: Image quality: Diagnostic Bones: No acute fractures or dislocations. No acute compression fractures of the vertebral bodies. Craniocervical junction is intact. C1-C2 relationship is preserved. Visualized superior ribs are intact. Redemonstration of moderate multilevel cervical spondylosis most pronounced at C5-6 and C6-7. Mild straightening of normal cervical lordosis likely related to positioning and/or concurrent muscle spasms. Soft tissues: Prevertebral soft tissues are normal in thickness. No paravertebral hematomas. No apical pneumothoraces. Chronic soft tissue calcifications noted posterior to the spinous processes at C6 and C7. IMPRESSION: CT cervical spine without acute fracture or traumatic malalignment. Moderate multilevel cervical spondylosis most pronounced at C5-6 and C6-7. Mild straightening of normal cervical lordosis likely related to positioning and/or concurrent muscle spasms. Dictated by: Landen Victoria M.D. on 09/30/2024 at 17:06 Approved by: Landen Victoria M.D. on 09/30/2024 at 17:10
--- NOTE | 2024-09-30 16:21 | DI.CT.S_ITS ---
PROCEDURE: CT HEAD/BRAIN WO CON INDICATIONS: posterior SHEIKH/neck pain nontraumatic; paget's disease TECHNIQUE: Noncontrast 4.5 mm thick angled axial sections acquired from the foramen magnum to the vertex, with coronal and sagittal reformats. For radiation dose reduction, the following was used: automated exposure control, adjustment of mA and/or kV according to patient size. COMPARISON: [facility], CT, CT HEAD/BRAIN WO CON, 11/06/2023, 16:01. FINDINGS: Image quality: Diagnostic. CSF spaces: Basal cisterns are patent. No extra-axial fluid collections. The ventricles are symmetric in size and shape. Brain: No intracranial bleeds or masses. There is cerebral volume loss for age, with resultant ventricular and sulcal prominence. There are periventricular and deep white matter chronic small vessel ischemic changes. There is intracranial internal carotid artery atherosclerosis. Skull and face: Calvarium and visualized facial bones appear intact, without suspicious lesions. Sinuses: Visualized sinuses and mastoids are clear. IMPRESSION: 1. CT head without acute intracranial abnormalities or acute calvarial fractures. 2. Age-related senescent changes and sequela of chronic small vessel ischemic disease. Dictated by: Landen Victoria M.D. on 09/30/2024 at 17:05 Approved by: Landen Victoria M.D. on 09/30/2024 at 17:06
[2024-09-30] MEDS: KETOROLAC 30 MG/ML VIAL 15 MG IV (17:04)
[2024-09-30] MEDS: diphenhydrAMINE 50 MG/ML VIAL 25 MG IV (17:04)
[2024-09-30] MEDS: SODIUM CHLORIDE 0.9% 1,000 ML 1000 ML IV (17:04)
[2024-09-30] MEDS: PROCHLORPERAZINE 10 MG/2 ML VIAL IV (17:05)
[2024-09-30 18:10] VITALS: BP 166/76; PULSE 88; RESP 18; O2SAT 98
== END 2024-09-30 18:12 | disposition home or self-care (01) ==
PROVIDERS: Emergency Provider Physician Assistant; PCP Student in an Organized Health Care Education/Training Program
DX: M47.812 Spondylosis without myelopathy or radiculopathy, cervical region (principal); G44.86 Cervicogenic headache; E78.5 Hyperlipidemia, unspecified; J45.30 Mild persistent asthma, uncomplicated
CPT/HCPCS: 36415; 70450; 72125; 96361; 96374; 96375; 99284; J0780; J1200; J1885

== ENCOUNTER → 2025-06-20 19:41 | Outpatient (CLI) | payer MEDICARE, OTHER, SELFPAY ==
--- NOTE | 2025-06-20 19:44 | DI.MRI.S_ITS ---
PROCEDURE: MR HIP RT WO CON INDICATIONS: Chronic RT Hip pain TECHNIQUE: Noncontrast coronal T1 spin echo and STIR through the bony pelvis. Coronal and axial T2 fast spin echo with fat saturation, sagittal T1 spin echo, and oblique axial T2 fast spin echo with fat saturation through the hip. COMPARISON: [facility], CR, XR HIP W PEL IF DONE [place] 3TO4V, 11/18/2023, 16:09. FINDINGS: Image quality: Excellent. Bones and joints: Bone marrow of the pelvic ring and proximal femurs show normal signal throughout. No intraosseous lesions or fractures. No avascular necrosis of the femoral heads. The visualized lower lumbar spine appears normally aligned. Tendons and ligaments: There is low-grade partial-thickness tearing of the gluteus medius and minimus tendons at the femoral insertion sites with moderate surrounding T2 signal elevation. The nearby proximal iliotibial band also appears intact. The iliopsoas tendon appears intact, without adjacent bursal fluid collections or evidence for impingement syndrome. Mild T2 signal elevation within and adjacent to the proximal right hamstring tendon. The straight and reflected heads of the rectus femoris muscle origin appear intact, as well as the conjoint tendon. The ligamentum teres appears intact where visualized. Labrum and cartilage: Moderate articular cartilage loss at the right hip joint. Diffuse irregular T2 signal elevation throughout the right hip labrum. The alpha angle of the femur is within normal limits at less than 55 degrees. Soft tissues: Visualized muscles demonstrate normal bulk and internal signal. Quadratus femoris muscle demonstrates no internal edema to suggest ischiofemoral impingement. The proximal sciatic neurovascular bundle appears normal adjacent to the hamstring tendons. No free pelvic fluid. Bladder wall thickness is normal. Genitourinary structures and bowel loops appear normal where visualized. IMPRESSION: 1. Partial-thickness tearing of the right gluteus medius and minimus tendons. 2. Mild right hamstring tendinopathy. 3. Right hip osteoarthritis associated with articular cartilage loss and labral tearing. Dictated by: Jermain Collazo M.D. on 06/21/2025 at 10:39 Approved by: Jermain Collazo M.D. on 06/21/2025 at 10:42
== END ==
LOC: MRI 19:43
PROVIDERS: Family Provider Student in an Organized Health Care Education/Training Program; PCP Student in an Organized Health Care Education/Training Program; Referring Provider Student in an Organized Health Care Education/Training Program; Visit Provider Student in an Organized Health Care Education/Training Program
DX: S76.011A Strain of muscle, fascia and tendon of right hip, initial encounter (principal); M16.11 Unilateral primary osteoarthritis, right hip; M24.151 Other articular cartilage disorders, right hip; M25.551 Pain in right hip; G89.29 Other chronic pain
CPT/HCPCS: 73721